=== PATIENT | female | born 1985 | race Caucasian/White ===

== ENCOUNTER 2024-10-04 13:11 | Emergency (ER) | payer MEDICAID, SELFPAY ==
[2024-10-04 13:49] VITALS: BP 110/70; PULSE 90; RESP 18; TEMP 36.2; O2SAT 98; BMI 29.2
--- NOTE | 2024-10-04 13:49 | ED_ITS ---
HPI - Allergic Reaction General Chief complaint: Skin/Abscess/Foreign Body Stated complaint: ? Allergic Rx to Prednisone Time Seen by Provider: 10/04/24 16:28 Source: patient Mode of arrival: ambulatory Limitations: no limitations History of Present Illness HPI narrative: This is a 39-year-old woman with a past medical history of anxiety/depression, history of IVDU (reports last use May 2024), history of MRSA, history of left upper extremity fracture status post surgery who presents for evaluation of nose redness/pain/edema. Patient states that she was recently prescribed prednisone, vitamins and increased dose of her gabapentin a little over a week ago. She reports taking as prescribed. She states that a few days ago she started having pain on her nose with some associated redness and swelling. She states noting some drainage of pus. She states no fevers or chills. She states no sore throat or voice changes. She states no chest pain or dyspnea. She states that she was prescribed these medications due to numbness and tingling in her left pinky finger and forearm. She states that several years ago she elbow had to have surgery for it. She states no interval trauma. She states no other complaints. She reports previously having a MRSA infection to her left brow. She states no back pain or abdominal pain. She states no GI or symptoms. She states no headache or neck pain. Related Data Previous Rx's ?Medication ?Instructions ?Recorded acetaminophen 325 mg tablet (Pain 650 mg (2 x 325 mg) PO Q8H PRN 10/04/24 Relief (acetaminophen)) pain #30 tabs amoxicillin 875 mg-potassium 1 tab PO BID 7 days #14 tabs 10/04/24 clavulanate 125 mg tablet doxycycline hyclate 100 mg capsule 100 mg PO BID 7 days #14 caps 10/04/24 ibuprofen 600 mg tablet 600 mg PO Q6H PRN pain #30 tabs 10/04/24 mupirocin 2 % topical ointment 1 appl topical TID 5 days #22 grams 10/04/24 Allergies Allergy/AdvReac Type Severity Reaction Status Date / Time No Known Allergies Allergy Verified 10/04/24 13:52 Review of Systems 2 Review of Systems: ROS as per HPI [facility] Social History Social History Advance Directives: No Advance Directives Information Provided: No Do you have a plan to hurt others: No Plan Patient : No Physical Exam ED Vital Signs: Vital Signs - 24 hr 10/04/24 13:49 Temperature 97.1 F Pulse Rate 90 Respiratory Rate 18 Blood Pressure 110/70 Pulse Oximetry 98 Oxygen Delivery Method Room Air BMI result Body Mass Index 29.2 Gen: NAD, AOx3 HEENT: NCAT, EOMI without pain, normal conjunctiva, erythema/warmth to the nose involving the bilateral nasal ala left greater than right with mild edema in associated spontaneous purulence from small fluctuance within the left naris, no periorbital erythema, uvula midline without edema, no posterior oropharynx erythema/exudates CV: RRR, 2+ bilateral radial pulses Pulm: CTAB, no increased work of breathing GI: Soft, NTND, no rebound, guarding or rigidity MSK: Bilateral upper extremity compartments are soft, intact motor function to the left upper extremity radial/ulnar/median/anterior interosseous nerves Neuro: CN 2-12 grossly intact, sensation intact to light touch in bilateral upper extremities, no motor deficits Skin: Warm, dry, well healed scar to left upper extremity Course Course Course Narrative: This is a Rapid Medical Exam performed in triage by Erin Barrera PA-C. Full HPI, ROS and PE to be performed by primary ED provider. 39-year-old female presenting to the ED c/o suspected allergic rxn to Prednisone w/erythematous & swollen nose. Placed on Prednisone for neuropathy s/p broken arm. Started on Prednisone 1.5wks ago. Admits has been on Prednisone in past w/o rxn. Denies other new exposures. Also reports paresthesias to left hand since broken arm. Denies snorting any drugs PE: +tip of nose swollen & erytheamtous with crusting/abrasion. Suspicious for cellulitis. Plan: Labs, SARs Medical Decision Making Medical Decision Making MDM Narrative: Differential diagnosis includes, but is not limited to cellulitis, abscess, peripheral neuropathy. Patient is afebrile and hemodynamically stable on room air. Exam is consistent with cellulitis and given patient's reported history of IVDU and previous MRSA we will treat empirically with Augmentin and doxycycline. Patient provided supportive care with Tylenol for analgesia. There is spontaneous purulent drainage so I do not think patient would benefit from incision and drainage especially given overlying cellulitis. On re-examination, patient is well-appearing and in no acute distress. ?Patient states symptoms have resolved. ?There is no indication for further emergent evaluation in this otherwise well-appearing patient as above. ?Patient is provided written and verbal instructions, educational materials, recommendations for outpatient follow-up, orthopedic surgery referral, prescription for Augmentin/doxycycline/mupirocin/Tylenol/ibuprofen. strict return precautions and teach back is performed. ?Patient states understanding and agreement with plan of care. ?Patient is discharged home in stable and improved condition. Admission/Observation Consideration of admission/observation: Escalation of care including admission/observation considered Lab Data MDM Lab Attestation statement: I reviewed the patient's lab results. Labs demonstrate a stable anemia with hemoglobin 11.3 no previous for comparison) metabolic panel overall reassuring, there is nonspecific transaminitis with AST 38 and ALT 34 which may be secondary to hepatic steatosis, not consistent with acute hepatitis and patient states no abdominal pain, CRP 6.9 in the setting of cellulitis. Viral panel negative. 10/04/24 14:01 10/04/24 14:01 Labs: Lab Results 10/04/24 Range/Units 14:01 WBC 9.3 (4.8-10.8) X10*3/uL RBC 3.76 L (4.20-5.50) X10*6/uL Hgb 11.3 L (12.0-16.0) g/dl Hct 35.7 L (37.0-47.0) % MCV 94.9 (80.0-98.0) fL MCH 30.1 (27.0-33.0) pg MCHC 31.7 (31.0-35.0) g/dl RDW 13.4 (11.0-16.0) % Plt Count 350 (160-400) X10*3/uL MPV 10.0 (9.4-12.3) fL Immature Gran % (Auto) 0.2 (0.0-0.4) % Neut % (Auto) 58.5 (45-73) % Lymph % (Auto) 31.7 (20-40) % [place] % (Auto) 5.9 (2-11) % Eos % (Auto) 3.3 (0-4) % Baso % (Auto) 0.4 (0-2) % Lymph # (Auto) 3.0 (1.2-4.9) X10*3/uL [place] # (Auto) 0.6 (0.1-1.2) X10*3/uL Eos # (Auto) 0.3 (0.0-0.4) X10*3/uL Baso # (Auto) 0.0 (0.0-0.2) X10*3/uL Abs Immat Gran (auto) 0.02 (0.00-0.03) X10*3/uL Absolute Neuts (auto) 5.5 (2.0-8.3) x10*3/uL Absolute Nucleated RBC 0.000 (0.0-0.012) X10*3/uL Nucleated RBC % (auto) 0.0 (0.0-0.2) /100WBC ESR 34 H (0-20) MM/HR Sodium 142 (135-145) mmol/L Potassium 4.4 (3.3-5.1) mmol/L Chloride 105 (96-108) mmol/L Carbon Dioxide 29 (22-29) mmol/L Anion Gap 12 (12-20) BUN 16 (9-16) mg/dL Creatinine 0.81 (0.5-1.4) mg/dL Estim Creat Clear Calc 89.4 Estimated GFR > 60 Random Glucose 71 (60-115) mg/dL Calcium 9.2 (8.4-10.2) mg/dL Total Bilirubin 0.3 (0.0-1.0) mg/dL Direct Bilirubin 0.1 (0.0-0.5) mg/dL AST 38 H (5-31) U/L ALT 34 H (0-31) U/L Alkaline Phosphatase 78 (39-117) U/L C-Reactive Protein 6.90 H (< or = 0.50) mg/dL Total Protein 7.5 (6.5-8.0) g/dL Albumin 4.1 (3.5-5.0) g/dL Influenza Type A (PCR) NEGATIVE (Negative) Influenza Type B (PCR) NEGATIVE (Negative) RSV RNA Qual (PCR) NEGATIVE (Negative) SARS-CoV-2 RNA (RT-PCR) NEGATIVE (Negative) Discharge Plan Discharge Clinical Impression: Cellulitis Patient Disposition: Home, Self-Care Instructions: Cellulitis (ED) Additional Instructions: You were evaluated in the emergency room. You were given your first dose of antibiotics here in the emergency room. A prescription for 2 antibiotics to be taken by mouth has been sent to your pharmacy. Please take as directed and until completed. Your next dose of antibiotics should be taken tomorrow morning October 05, 2024. A prescription for a topical antibiotic ointment (Mupirocin) has been sent to your pharmacy as well. Please apply to your nose and inside both nostrils 3 times per day for the next 5 days. A prescription for Tylenol and Ibuprofen has also been sent. Take as directed. Take ibuprofen with food AND water each time. Please follow up with Orthopedic surgery in 1-2 weeks for your previous left elbow injury. Return to the emergency room with any new concerns or symptoms. Prescriptions: New doxycycline hyclate 100 mg capsule 100 mg PO BID 7 Days Qty: 14 0RF amoxicillin-pot clavulanate 875-125 mg tablet 1 tab PO BID 7 Days Qty: 14 0RF ibuprofen 600 mg tablet 600 mg PO Q6H PRN (Reason: pain) Qty: 30 0RF acetaminophen [Pain Relief (acetaminophen)] 325 mg tablet 650 mg PO Q8H PRN (Reason: pain) Qty: 30 0RF mupirocin 2 % ointment 1 appl topical TID 5 Days Qty: 22 0RF Referrals: [facility] [Provider Group] Print Language: Arabic
[2024-10-04 14:10] LABS: MANUAL DIFF FLAG NO
[2024-10-04 14:15] LABS: Basophils Percent Auto 0.4 % (0-2); Eosinophils Absolute Auto 0.3 X10*3/uL (0.0-0.4); Eosinophils Percent Auto 3.3 % (0-4); Hematocrit 35.7 % (37.0-47.0); Hemoglobin 11.3 g/dl (12.0-16.0); Imm Gran Abs Auto 0.02 X10*3/uL (0.00-0.03); Imm Gran Pct Auto 0.2 % (0.0-0.4); Lymphocytes Percent Auto 31.7 % (20-40); Mean Corpuscular HGB Conc 31.7 g/dl (31.0-35.0); Mean Corpuscular Hemoglobin 30.1 pg (27.0-33.0); Mean Corpuscular Volume 94.9 fL (80.0-98.0); Monocytes Absolute Auto 0.6 X10*3/uL (0.1-1.2); Monocytes Percent Auto 5.9 % (2-11); Neutrophils Absolute Auto 5.5 x10*3/uL (2.0-8.3); Neutrophils Percent Auto 58.5 % (45-73); Platelet Count 350 X10*3/uL (160-400); Red Blood Count 3.76 X10*6/uL (4.20-5.50); Red Cell Distribution Width 13.4 % (11.0-16.0); White Blood Count 9.3 X10*3/uL (4.8-10.8)
[2024-10-04 14:29] LABS: Alanine Aminotransferase 34 U/L (0-31); Albumin Level 4.1 g/dL (3.5-5.0); Alkaline Phosphatase 78 U/L (39-117); Anion Gap 12 (12-20); Aspartate Amino Transferase 38 U/L (5-31); Bilirubin Direct 0.1 mg/dL (0.0-0.5); Bilirubin Total 0.3 mg/dL (0.0-1.0); Blood Urea Nitrogen 16 mg/dL (9-16); Calcium 9.2 mg/dL (8.4-10.2); Carbon Dioxide 29 mmol/L (22-29); Chloride 105 mmol/L (96-108); Creatinine Clr Calc Pharmacy 89.4; Estimated Glomerular Filt Rate > 60; Glucose Random 71 mg/dL (60-115); Potassium 4.4 mmol/L (3.3-5.1); Sodium 142 mmol/L (135-145); Total Protein 7.5 g/dL (6.5-8.0)
[2024-10-04 14:48] LABS: Influenza A PCR NEGATIVE (Negative); Influenza B PCR NEGATIVE (Negative); Resp Syncy Virus RNA Qual PCR NEGATIVE (Negative); SARS COV2 PCR INHOUSE NEGATIVE (Negative)
[2024-10-04 14:54] LABS: Erythrocyte Sedimentation Rate 34 MM/HR (0-20)
--- OUTSIDE RECORDS SUMMARY | 2024-10-04 16:38 | XMS_ITS | Encounter Summary ---
Author Organization [facility] Address [address] [place] [address] Care Team Providers Care Stock Taker Name Role Phone Rachel Kirby NP Primary Care Provider [facility] Unavailable U navailable [facility] Unavailabl e Unavailable Encounter Details Date Type Department Care Team (Late st Contact Info) Description 06/12/2023 Orders Only [facility] [address] [place] [address] Rachel Kirby NP [address] [place] [address] Social History Tobacco Use Types Packs/Day Years Used Date Smoking Tobacco: Every Day Cigarettes 1 24.3 Started: 06/04/2000 Smokeless Tobacco: Current Comments:Started at age 16. Quit for 6 months. Alcohol Use Standard Drinks/Week Comments No 0 (1 standard drink = 0.6 oz pur e alcohol) Sober since 2018 PHQ-2 Answer Date Recorded PHQ-2 Score 0 06/04/2019 Intimate Partner Violence Answer Date R ecorded Fear of Current or Ex-Partner Not on file Emotionally Abused Not on file 02/13/2023 Physically Abused Not on file 02/13/2023 Sexually Abused Not on file 02/13/2023 Feel Safe at Home Not on file 02/13/2023 Social Connections Answer Date Recorded Phone Communication More than three times a week 02/04/2022 Get together with friends / family Once a week 02/04/2022 Attend latter-day services Never 2021 Club Membership No 02/04/2022 Club Attendance More than 4 times per year 02/04 Marital Status Never 02/04/2022 Financial Resource Strain Answer Date R ecorded Difficulty paying for basics How hard is it for you to pa y for utilities (electricity, gas, water)? Hard 02/04/2022 Food Insecurity Answer Date Recorded Worry that food will run out Inability to get food 10/05/2022 Transportation Needs Answer Date Record ed Lacking transport to medical appts 10/05/2022 Lacking transport to non-medical 10/05/2022 Housing Stability Answer Date Recorded Unable to Pay for Housing in the Last Year 10/05/2022 Number of Places Lived in the Last Year 2 10/05/2022 Unstable Housing in the Last Year 10/05/2022 Comments No Sex and Gender Information Value Date Recorded Sex Assigned at Female 12/23/2022 2:36 PM EDT Legal Sex Female 8:58 PM EDT Gender Identity Female 12/23/2022 2:36 PM EDT Sexual Orientation Straight 12/23/2022 2: 36 PM EDT documented as of this encounter Plan of Treatment Upcoming Encounters Date Type Department Care Team (Latest Contact Info) Description 11/04/2024 1:20 PM EDT Consult (Initial) [facility] Plastic & Reconstructive Surgery [address] [address] Geoffrey Fairchild MD [address] [address] I have what I believe I 11/08/2024 2:05 PM EDT CPE - Comprehensive Physical Exam [facility] [address] [place] [phone] Rachel Kirby NP [address] [place] [address] SP MCKEON 03/14/2025 3:00 PM EDT Office Visit [facility] Optometry [address] [place] [address] Juanjose Allen, OD [address] [place] [address] est pt exam annual nodm nocl aodv aoir. elig 03/14/2025, 06/14mos EM $0 cp documented as of this encounter Goals Goal Patient Goal Type Associated Problems Recent Progress Patient-Stated? Author Quit smoking / using tobacco Lifestyle Tiera Guthrie CMA Note: Smoking can cause cancer, heart attacks, hardening of the arteries, bronchitis, emphysema, cough, shortness of breath, wrinkles, and premature aging and premature births. Some benefits of quitting smoking begin right away. Your risk of heart disease begins to decrease as soon as you quit. Your general health may also start to improve immediately because you are not irritating your lungs and more oxygen gets to your body organs. Your blood circulation is likely to get better. Other benefits may include fewer colds and lung infections as well as reduced risk of high blood pressure, stroke, and cancer. Interested in quitting smoking? Discuss medication options with your provider or contact the Quit To Win program at . Any insurance accepted. Quit smoking resources-[email or web address]://[email or web address] documented as of this encounter Procedures * Due to [place] law, this organization might not be sharing negative HIV tests. Procedure Name Priority Date/Time Associated Diagnosis Comments THINPREP TIS PAP, HPV MRNA E6/E7 RFX HPV 16,18/45, CT/NG Routine 06/12/2023 8:48 AM EST Screening for malignant neoplasm of cervix documented in this encounter Results * Due to [place] law, this organization might not be sharing negative HIV tests. * THINPREP TIS PAP, HPV MRNA E6/E7 RFX HPV 16,18/45, CT/NG (06/12/2023 8:48 AM EST) Clinical information None given [facility] Date last menstrual period 05/08/2023 [facility] Date of previous PAP smear 05/14/2008 [facility] Date of previous biopsy NONE GIVEN [facility] Specimen source (Cvx/Vag) None given [facility] Statement of Adequacy (Cvx/Vag) Satisfactory for evaluation. Endocervical/segal sformation zone component present. [facility] Cytology, Pap Smear Cytology Results: Negative for intraepithelial lesion or malignancy. [facility] Cytology study comment (Cvx/Vag) This Pap test has been evaluated with computer assisted technology. [facility] Operations Consultant (Cvx/Vag) EXJ, CT(ASCP) CT Screening Location: [place] [address] [facility] COMMENT SEE NOTE [facility] Comment: EXPLANATORY NOTE: The Pap is a screening test for cervical cancer. It is not a diagnostic test and is subject to false negative and false positive results. It is most reliable when a satisfactory sample, regularly obtained, is submitted with relevant clinical findings and history, and when the Pap result is evaluated along with historic and current clinical information. HPV MRNA E6/E7 Not Detected Not Detected [facility] Comment: Methodology: Axminster Weaver-Mediated Amplification This assay detects E6/E7 viral messenger RNA (mRNA) from 14 high-risk HPV types (16,18,31,33,35,39,45,51,52,56,58,59,66,68). Cervical sources are required for HPV testing. If a vaginal source from a patient who has had a total hysterectomy with removal of cervix was submitted, please contact the testing laboratory for alternative testing options. For additional information, please refer to http://[employer]/faq/WFH114f2 (This link if provided for information/ educational purposes only.) Chlamydia trachomatis rRNA NOT DETECTED NOT DETECTED [facility] Neisseria Gonorrhoeae rRNA NOT DETECTED NOT DETECTED [facility] COMMENT SEE NOTE [facility] Comment: The analytical performance characteristics of this assay, when used to test SurePath(TM) specimens have been determined by [facility]. The modifications have not been cleared or approved by the FDA. This assay has been validated pursuant to the CLIA regulations and is used for clinical purposes. For additional information, please refer to https://[employer]/faq/MXG584 (This link is being provided for information/ educational purposes only.) 06/12/2023 8:48 AM EST 06/12/2023 11:28 PM EST Narrative Resulting Agency Comment [id number] us Rachel Kirby NP PATHOLOGY-INTERFACED Final R esult Performing Organization Address City/State/[facility] Co de Phone Number [facility] [address] [place] [address] documented in this encounter Visit Diagnoses Diagnosis Screening for malignant neoplasm of cervix Screening for malignant neoplasm of the cervix documented in this encounter Care Teams Stock Taker Relationship Specialty Start Date End Date Rachel Kirby NP PCP - General Internal Medicine [facility] 02/19/23 08/20/23 [facility] 11/20/23 06/21/24 documented as of this encounter
--- OUTSIDE RECORDS SUMMARY | 2024-10-04 16:38 | XMS_ITS | Encounter Summary ---
Author Organization [facility] Address [address] [place] [address] Care Team Providers Care Veterinary Dentist Name Role Phone Rachel Kirby NP Primary Care Provider [facility] U navailable [facility] Unavailabl e Unavailable Reason for Visit * Reason Comments Medication Problem Encounter Details Date Type Department Care Team ([facility] st Contact Info) Description 12/30/2021 Telephone [facility] [address] [place] [phone] Rachel Kirby NP [address] [place] [address] Medication Problem Social History Tobacco Use Types Packs/Day Years Used Date Smoking Tobacco: Every Day Cigarettes 1 24.3 Started: 06/04/2000 Smokeless Tobacco: Current Comments:Started at age 16. Alcohol Use Standard Drinks/Week Comments No 0 (1 standard drink = 0.6 oz pur e alcohol) Sober since 2019 PHQ-2 Answer Date Recorded PHQ-2 Score 0 06/04/2019 Comments No Sex and Gender Information Value Date Recorded Sex Assigned at Female 12/23/2022 2:36 PM EDT Legal Sex Female 8:58 PM EDT Gender Identity Female 12/23/2022 2:36 PM EDT Sexual Orientation Straight 12/23/2022 2: 36 PM EDT Occupation Industry Job Start Date Job End Date Not on file Not on file Not on file Not on file [employer] Not on file Not on file Not on file documented as of this encounter Miscellaneous Notes * Telephone Encounter - Leidy Garnicaa - 12/30/2021 11:58 AM EDT Pt in program. Calling re: med problem Transferred to nurse documented in this encounter Plan of Treatment Upcoming Encounters Date Type Department Care Team (Latest Contact Info) Description 11/04/2024 1:20 PM EDT Consult (Initial) [facility] Plastic & Reconstructive Surgery 123 [facility] [address] [place] [address] Geoffrey Fairchild MD [address] [address] I have what I believe I 11/08/2024 2:05 PM EDT CPE - Comprehensive Physical Exam [facility] [address] [place] [phone] Rachel Kirby NP [address] [place] [address] CPE, HCC 03/14/2025 3:00 PM EDT Office Visit [facility]. Optometry [address] [place] [phone] Juanjose Allen, JERONIMO [address] [place] [address] est pt exam annual nodm nocl aodv aoir. elig 03/14/2025, 06/14mos EM $0 cp documented as of this encounter Goals Goal Patient Goal Type Associated Problems Recent Progress Patient-Stated? Author Quit smoking / using tobacco Lifestyle No Tiera Jones CMA Note: Smoking can cause cancer, heart [...] at . Any insurance accepted. Quit smoking resources-http://[employer].org documented as of this encounter Visit Diagnoses Not on filedocumented in this encounter Care Teams Veterinary Dentist Relationship Specialty Start Date End Date Rachel Kirby NP PCP - General Internal Medicine 04/19/18 [facility] 02/19/23 08/20/23 [facility] 11/20/23 06/21/24 documented as of this encounter
--- OUTSIDE RECORDS SUMMARY | 2024-10-04 16:38 | XMS_ITS | Encounter Summary ---
Author Organization [facility] Address [address] [place] [address] Care Team Providers Care Dominatrix Name Role Phone Rachel Kirby NP Primary Care Provider [phone] [facility] U navailable [facility] Unavailabl e Unavailable Reason for Visit * Reason Comments E-prescribing Refill Request Encounter Details Date Type Department Care Team ([facility] st Contact Info) Description 03/06/2021 Refill [facility] [address] [place] [phone] Rachel Kirby NP [address] [place] [address] E-prescribing Refill Request Social History Tobacco Use Types Packs/Day Years [...] file Not on file Not on file Beater Out Not on file Not on file Not on file documented as of this encounter Plan of Treatment Upcoming Encounters Date Type Department Care Team (Latest Contact Info) Description 11/04/2024 1:20 PM EDT Consult (Initial) [facility] Plastic & Reconstructive Surgery 123 [facility] [address] [place] [address] Geoffrey Fairchild MD 123 [facility] [address] [place] [address] I have what I believe I 11/08/2024 2:05 PM EDT CPE - Comprehensive Physical Exam [facility] [address] [place] [phone] Rachel Kirby NP [address] [place] [address] CPE, HCC 03/14/2025 3:00 PM EDT Office Visit [facility]. Optometry [address] [place] [phone] Juanjose Allen, JERONIMO [address] [place] [address] est pt exam annual nodm nocl aodv aoir. elig 03/14/2025, 06/14mos EM $0 cp documented as of this encounter Goals Goal Patient Goal Type Associated Problems Recent Progress Patient-Stated? Author Quit smoking / using tobacco Lifestyle No Tiera Jones, JOHN Note: Smoking can cause cancer, heart attacks, [...] at . Any insurance accepted. Quit smoking resources-[email or web address] documented as of this encounter Visit Diagnoses Diagnosis Other specified anxiety disorders documented in this encounter Care Teams Dominatrix Relationship Specialty Start Date End Date Rachel Kirby NP PCP - General Internal Medicine 04/19/18 Micah Chiang [facility] 02/19/23 08/20/23 [facility] 11/20/23 06/21/24 documented as of this encounter
--- OUTSIDE RECORDS SUMMARY | 2024-10-04 16:38 | XMS_ITS | Encounter Summary ---
Author Organization [facility] Address [address] [place] [address] Care Team Providers Care Automotive Design Layout Drafter Name Role Phone Rachel Kirby NP Primary Care Provider [phone] [facility] U navailable [facility], [facility] Unavailabl e Unavailable Reason for Visit * Reason Comments E-prescribing Refill Request Encounter Details Date Type Department Care Team ([facility] st Contact Info) Description 06/17/2022 Refill [facility] [address] [place] [address] Rachel Kirby NP 4 [place] [address] E-prescribing Refill Request Social History Tobacco Use [...] on file Emotionally Abused Not on file 02/04/2022 Physically Abused Not on file 02/04/2022 Sexually Abused Not on file 02/04/2022 Do you feel physically and e motionally safe where you currently live? Yes 02/04/2022 Social Connections Answer Date Recorded Phone Communication [...] for utilities (electricity, gas, water)? 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 Not on file Not on file documented as of this encounter Plan of Treatment Upcoming Encounters Date Type Department Care Team (Latest Contact Info) Description 11/04/2024 1:20 PM EDT Consult (Initial) [facility] Plastic & Reconstructive Surgery [address] [address] Geoffrey Fairchild MD [address] [address] I have what I believe I 11/08/2024 2:05 PM EDT CPE - Comprehensive Physical Exam [facility] [address] [place] [phone] Rachel Kirby NP 4 [place] [address] CPE, HCC 03/14/2025 3:00 PM EDT Office Visit [facility]. Optometry 5 [place] [address] AllenJavyis, OD 5 [place] [address] est pt exam annual nodm nocl aodv [...] at . Any insurance accepted. Quit smoking resources-[email or web address] [email or web address] documented as of this encounter Visit Diagnoses Not on filedocumented in this encounter Care Teams Automotive Design Layout Drafter Relationship Specialty Start Date End Date Rachel Kirby NP PCP - General Internal Medicine 04/19/18 [facility] 02/19/23 08/20/23 [facility] 11/20/23 06/21/24 documented as of this encounter
--- OUTSIDE RECORDS SUMMARY | 2024-10-04 16:38 | XMS_ITS | Encounter Summary ---
Author Organization [facility] Address [address] [place] [address] Care Team Providers Care Hospice Spiritual Care Coordinator Name Role Phone Rachel Kirby NP Primary Care Provider Sharif Serrano MD Unavailable [phone] Berta Mcintosh MD Primary Care Provider [phone] Yasmani Cook MD Primary Care Provider Unknown Pcp, Non [facility] Primary Care Provider Unava ilable Yasmani Cook MD Primary Care Provider [phone] Yasmani Cook MD Primary Care Provider [phone] Rachel Kirby NP Primary Care Provider [phone] [facility] Unavai [facility] Unavailable U navailable [facility] Unavailabl e Unavailable Encounter Details Date Type Department Care Team (Late st Contact Info) Description 03/17/2009 Orders Only [place] [address] Stefanie Stone MD Social History Tobacco Use Types Packs/Day Years Used Date Smoking Tobacco: Passive Smo ke Exposure - Never Smoker Cigarettes Comments:about 5 cigarettes a day Alcohol Use Standard Drinks/Week Comments Yes 0 (1 standard drink = 0.6 oz pur e alcohol) Once in awhile. 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 Telephone encounter has been sent to dr. Stone as patient is having a problem with spotting and cramping. documented in this encounter Plan of Treatment Upcoming Encounters Date Type Department Care Team (Latest Contact Info) Description 11/04/2024 1:20 PM EDT Consult (Initial) [facility] Plastic & Reconstructive Surgery [address] [address] Geoffrey Fairchild MD [address] [address] I have what I believe I 11/08/2024 2:05 PM EDT CPE - Comprehensive Physical Exam [facility] 4 [place] [phone] Rachel Kirby NP 4 [place] [address] CPE, HCC 03/14/2025 3:00 PM EDT Office Visit [facility]. Optometry 5 [place] [phone] Juanjose Allen, OD 5 [place] [address] est pt exam annual nodm nocl aodv aoir. elig 03/14/2025, 06/14mos EM $0 cp documented as of this encounter Procedures * Due to [place] AdStage law, this organization might not be sharing negative HIV tests. Procedure Name Priority Date/Time Associated Diagnosis Comments HCG (QUANTITATIVE) (CAN BE USED FOR TUMOR MARKER) Routine 03/17/2009 Examination or Test, Unconfirmed documented in this encounter Results * Due to [place] AdStage law, this organization might not be sharing negative HIV tests. * HCG (QUANTITATIVE) (CAN BE USED FOR TUMOR MARKER) (03/17/2009) HCG, Total, Quantitative < 5 5 MIU/ML [facility] Comment: GESTATIONAL WEEKS POST LMP 0.2-1: 5-50 MIU/ML 1-2: 50-500 MIU/ML 2-3: 100-5,000 MIU/ML 3-4: 500-10,000 MIU/ML 4-5: 1,000-50,000 MIU/ML 5-6: 10,000-100,000 MIU/ML 6-8: 15,000-200,000 MIU/ML 2-3 MONTHS: 10,000-100,000 MIU/ML NON- FEMALES: < 5 MIU/ML POST-MENOPAUSAL FEMALES: ??< 10 MIU/ML VALUES FROM DIFFERENT ASSAY METHODS MAY VARY. THE USE OF THIS ASSAY TO MONITOR OR TO DIAGNOSE PATIENTS WITH CANCER OR ANY CONDITION UNRELATED TO HAS NOT BEEN CLEARED OR APPROVED BY THE FDA OR THE MINING PROFESSIONALS OF THIS ASSAY. 03/17/2009 03/17/2009 7:1 7 PM EDT us Stefanie Stone MD LAB SAME DAY RESULT Final Result [facility] [address] [place] [address] documented in this encounter Visit Diagnoses Diagnosis examination or test, unconfirmed documented in this encounter Care Teams Hospice Spiritual Care Coordinator Relationship Specialty Start Date End Date Rachel Kirby NP [address] [place] [address] PCP - General 05/22/10 04/17/11 Sharif Serrano MD 4 [place] [address] PCP - Backup PCP 06/20/08 04/17/11 Berta Mcintosh MD [facility] Care [address] [place] [address] PCP - General 04/18/11 12/30/12 Yasmani Cook MD [address] [place] [address] PCP - General Internal Medicine 12/31/12 12/29/14 Unknown Pcp, Non [facility] PCP - General 12/30/14 09/03/15 Yasmani Coko MD [address] [place] [address] PCP - General Internal Medicine 09/04/15 02/28/18 Yasmani Cook MD [address] [place] [address] PCP - General 03/01/18 04/18/18 Rachel Kirby NP PCP - General Internal Medicine 04/19/18 [facility] 07/21/1908/19 [facility] 02/19/23 08/20/23 [facility] 11/20/23 06/21/24 documented as of this encounter
--- OUTSIDE RECORDS SUMMARY | 2024-10-04 16:38 | XMS_ITS | Encounter Summary ---
Author Organization [facility] Address [address] [place] [address] Care Team Providers Care Timber Cruiser Name Role Phone Rachel Kirby NP Primary Care Provider Sharif Serrano MD Unavailable [phone] Berta Mcintosh MD Primary Care Provider [phone] Yasmani Cook MD Primary Care Provider Unknown Pcp, Non [facility] Primary Care Provider Unava ilable Yasmani Cook MD Primary Care Provider [phone] Yasmani Cook MD Primary Care Provider Rachel Kirby NP Primary Care Provider [phone] [facility] Un[facility] Unavai [facility], [facility] Unavailable U navailable [facility] Unavailabl e Unavailable Encounter Details Date Type Department Care Team (Late st Contact Info) Description 03/16/2009 Orders Only [place] [address] Stefanie Stone MD Social History Tobacco Use [...] 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 [address] [place] [address] I have what I believe I 11/08/2024 2:05 PM EDT CPE - Comprehensive Physical Exam [facility] 4 [place] [address] Rachel Kirby NP 4 [place] [address] CPE, HCC 03/14/2025 3:00 PM EDT Office Visit [facility] Optometry 5 [place] [phone] Juanjose Allen, JERONIMO [address] [place] [address] est pt exam annual nodm nocl aodv aoir. elig 03/14/2025, 06/14mos EM $0 cp documented as of this encounter Results * Due to [place] state law, this organization might not be sharing negative HIV tests. * HCG (QUANTITATIVE) (CAN BE USED FOR TUMOR MARKER) (03/17/2009) HCG, Total, Quantitative < 5 5 MIU/ML [facility] Comment: GESTATIONAL WEEKS POST LMP 0.2-1: [...] OR APPROVED BY THE FDA OR THE SILVER DESIGNER OF THIS ASSAY. 03/17/2009 03/17/2009 7:1 7 PM EDT Stefanie Stone MD LAB SAME DAY RESULT Final Result [facility] [address] [place] [address] documented in this encounter Visit Diagnoses Diagnosis examination or test, unconfirmed- Primary documented in this encounter Care Teams Timber Cruiser Relationship Specialty Start Date End Date Rachel Kirby NP [address] [place] [address] PCP - General 05/22/10 04/17/11 Sharif Serrano MD [address] [place] [address] PCP - Backup PCP 06/20/08 04/17/11 Berta Mcintosh MD [facility] [address] [place] [address] PCP - General 04/18/11 12/30/12 Yasmani Cook MD [address] [place] [address] PCP - General Internal Medicine 12/31/12 12/29/14 Unknown Pcp, Non [facility] PCP - General 12/30/14 09/03/15 Yasmani Cook MD [address] [place] [address] PCP - General Internal Medicine 09/04/15 02/28/18 Yasmani Cook MD [address] [place] [address] PCP - General 03/01/18 04/18/18 Rachel Kirby NP PCP - General Internal Medicine 04/19/18 [facility] Health Assistants 07/21/1908/19 [facility] 02/19/23 08/20/23 [facility] Assist[facility] 11/20/23 06/21/24 documented as of this encounter
--- OUTSIDE RECORDS SUMMARY | 2024-10-04 16:38 | XMS_ITS | Encounter Summary ---
Author Organization [facility] Address [address] [place] [address] Care Team Providers Care Business Area Director Name Role Phone Rachel Kirby NP Primary Care Provider [phone] Care, [facility] Unavailable [facility], [facility] Unavailable U navailable [facility] Unavailabl e Unavailable Encounter Details Date Type Department Care Team (Late st Contact Info) Description 05/30/2019 Telephone [facility] 4 [place] [phone] Rachel Kirby NP [address] [place] [address] Social History Tobacco Use Types Packs/Day Years Used Date Smoking Tobacco: Every Day Cigarettes 0.8 17 Smokeless Tobacco: Current Comments:Started at age 16. 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 Not on file documented as of this encounter Plan of Treatment Upcoming Encounters Date Type Department Care Team (Latest Contact Info) Description 11/04/2024 1:20 PM EDT Consult (Initial) [facility] Plastic & Reconstructive Surgery 123 [facility] [address] [place] [address] Geoffrey Fairchild MD 123 [facility] [address] [place] [address] I have what I believe I 11/08/2024 2:05 PM EDT CPE - Comprehensive Physical Exam [facility] [address] [place] [phone] Rachel Kirby NP [address] [place] [address] CPE, HCC 03/14/2025 3:00 PM EDT Office Visit [facility]. Optometry 5 [place] [phone] Juanjose Allen, OD 5 [place] [address] est pt exam annual nodm nocl aodv [...] at . Any insurance accepted. Quit smoking resources-[email or web address]://[email or web address].[email or web address] documented as of this encounter Visit Diagnoses Not on filedocumented in this encounter Care Teams Business Area Director Relationship Specialty Start Date End Date Rachel Kirby NP PCP - General Internal Medicine 04/19/18 [facility] Health Assistants 07/21/1908/19 [facility] 02/19/23 08/20/23 [facility] Assist[facility] 11/20/23 06/21/24 documented as of this encounter
--- OUTSIDE RECORDS SUMMARY | 2024-10-04 16:38 | XMS_ITS | Encounter Summary ---
Author Organization [facility] Address [address] [place] [address] Care Team Providers Care Steel Wool Machine Operator Name Role Phone Rachel Kirby NP Primary Care Provider [phone] Sharif Serrano MD Unavailable [phone] Berta Mcintosh MD Primary Care Provider Yasmani Cook MD Primary Care Provider [phone] Unknown Pcp, Non [facility] Primary Care Provider Unava ilable Yasmani oCok MD Primary Care Provider Yasmani Cook MD Primary Care Provider Rachel Kirby NP Primary Care Provider [phone] Care, [facility] Unavailable Unavai [facility], [facility] Unavailable U navailable [facility] Unavailabl e Unavailable Encounter Details Date Type Department Care Team (Late st Contact Info) Description 10/28/2008 Orders Only [facility] [address] [place] [address] Rachel Kirby NP 4 [place] [address] Social History Tobacco Use Types Packs/Day Years Used Date Smoking Tobacco: Every Day Cigarettes Comments:about 5 cigarettes a day Alcohol [...] 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 Optometry 5 [place] [phone] Juanjose Allen, JERONIMO [address] [place] [address] est pt exam annual nodm nocl aodv aoir. elig 03/14/2025, 06/14mos EM $0 cp documented as of this encounter Procedures * Due to [place] state law, this organization might not be sharing negative HIV tests. Procedure Name Priority Date/Time Associated Diagnosis Comments CULTURE, STREP SCREEN (GROUP A), THROAT Routine 10/28/2008 Pharyngitis documented in this encounter Results * Due to [place] state law, this organization might not be sharing negative HIV tests. * CULTURE, STREP SCREEN (GROUP A), THROAT (10/28/2008) Result(s) SEE TEXT [facility] Comment: SOURCE: THROAT NO GROUP A STREPTOCOCCI ISOLATED 10/28/2008 10/28/2008 10: 13 PM EDT Rachel Kirby NP LABORATORY Final Result Performing Organization Address City/State/[facility] Co de Phone Number [facility] [address] [place] [address] documented in this encounter Visit Diagnoses Diagnosis Pharyngitis Acute pharyngitis documented in this encounter Care Teams Steel Wool Machine Operator Relationship Specialty Start Date End Date Rachel Kirby NP [address] [place] [address] PCP - General 05/22/10 04/17/11 Sharif Serrano MD [address] [place] [address] PCP - Backup PCP 06/20/08 04/17/11 Berta Mcintosh MD [facility] [address] [place] [id number] PCP - General 04/18/11 12/30/12 Yasmani Cook MD [address] [place] [address] PCP - General Internal Medicine 12/31/12 12/29/14 Unknown Pcp, Non [facility] PCP - General 12/30/14 09/03/15 Yasmani Cook MD [address] [place] [address] PCP - General Internal Medicine 09/04/15 02/28/18 [place] [address] PCP - General 03/01/18 04/18/18 Rachel Kirby NP PCP - General Internal Medicine 04/19/18 [facility]ants 07/21/1908/19 [facility] 02/19/23 08/20/23 [facility] Assistants 11/20/23 06/21/24 documented as of this encounter
--- OUTSIDE RECORDS SUMMARY | 2024-10-04 16:38 | XMS_ITS | Encounter Summary ---
Author Organization [facility] Address [address] [place] [address] Care Team Providers Care Hull Grinder Name Role Phone Rachel Kirby NP Primary Care Provider [phone] Care, [facility] Unavailable Unavai [facility], 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 Not on file documented as of this encounter Plan of Treatment Upcoming Encounters Date Type Department Care Team (Latest Contact Info) Description 11/04/2024 1:20 PM EDT Consult (Initial) [facility] Plastic & Reconstructive Surgery 123 [facility] [address] [place] [address] Geoffrey Fairchild MD 123 [facility] [address] [place] [address] I have what I believe I 11/08/2024 2:05 PM EDT CPE - Comprehensive Physical Exam [facility] 4 [place] [phone] Rachel Kirby NP 4 [place] [address] CPE, HCC 03/14/2025 3:00 PM EDT Office Visit [facility]. Optometry 5 [place] [phone] Juanjose Allen, OD 5 [place] [address] est pt exam annual nodm nocl aodv [...] at . Any insurance accepted. Quit smoking resources-[email or web address] documented as of this encounter Procedures * Due to [place] Bizily law, this organization might not be sharing negative HIV tests. Procedure Name Priority Date/Time Associated Diagnosis Comments THYROID STIMULATING HORMONE (TSH) WITH FREE T4 REFLEX, SERUM Routine 05/04/2018 3:04 PM EST Screening for thyroid disorder HEMOGLOBIN A1C Routine 05/04/2018 3:04 PM EST Screening for diabetes mellitus LAMOTRIGINE Routine 05/04/2018 3:04 PM EST Bipolar disorder, current episode mixed, mild LIPID PANEL WITH REFLEX TO DIRECT LDL Routine 05/04/2018 3:04 PM EST Screening for lipid disorders BASIC METABOLIC PANEL WITH (GFR) Routine 05/04/2018 3:04 PM EST Screening for diabetes mellitus documented in this encounter Results * Due to [place] Biz[place] law, this organization might not be sharing negative HIV tests. * (ABNORMAL) LAMOTRIGINE (05/04/2018 3:04 PM EST) Lamotrigine 1.9(L) 4.0 - 18.0 mcg/mL [facility] Comment: This test was developed and its analytical performance characteristics have been determined by [facility], [place]. It has not been cleared or approved by the U.S. Food and Drug Administration. This assay has been validated pursuant to the CLIA regulations and is used for clinical purposes. 05/04/2018 3:04 PM EST 05/04/2018 9:47 PM EST Narrative Resulting Agency Comment [id number] Rachel Kirby NP LABORATORY Final Result [facility] [address] [place] [address] * THYROID STIMULATING HORMONE (TSH) WITH FREE T4 REFLEX, SERUM (05/04/2018 3:04 PM EST) Pathologist [facility] TSH 2.06 mIU/L [facility] Comment: ?Reference Range ?> or = 20 Years ??0.40-4.50 ? Ranges ?First trimester ?0.26-2.66 ?Second trimester ?? 0.55-2.73 ?Third trimester ?0.43-2.91 05/04/2018 3:04 PM EST 05/04/2018 9:47 PM EST Narrative Resulting Agency Comment [id number] [facility] LABORATORY Final Result Performing Organization Address [facility] Phone Number [facility] [address] [place] [address] * HEMOGLOBIN A1C (05/04/2018 3:04 PM EST) [facility] Hemoglobin A1C 5.0 <5.7 % of total Hgb [facility] Comment: For the purpose of screening for the presence of diabetes: <5.7% ? Consistent with the absence of diabetes 5.7-6.4% ?Consistent with increased risk for diabetes ?(prediabetes) > or =6.5% ??Consistent with diabetes This assay result is consistent with a decreased risk of diabetes. Currently, no consensus exists regarding use of hemoglobin A1c for diagnosis of diabetes in children. According to [place] Diabetes Association (ADA) guidelines, hemoglobin A1c <7.0% represents optimal control in non- diabetic patients. Different metrics may apply to specific patient populations. Standards of Medical Care in Diabetes(ADA). Estimated Average Glucose 101 mg/dL (calc) [facility] 05/04/2018 3:04 PM EST 05/04/2018 9:47 PM EST Narrative Resulting Agency Comment [id number] [facility] LABORATORY Final Result Performing Organization Address [facility]/ZIP Co de Phone Number [facility] [address] [place] [address] * (ABNORMAL) BASIC METABOLIC PANEL WITH (GFR) (05/04/2018 3:04 PM EST) Glucose 102(H) 65 - 99 mg/dL [facility] Comment: ? Fasting reference interval For someone without known diabetes, a glucose value between 100 and 125 mg/dL is consistent with prediabetes and should be confirmed with a follow-up test. Urea Nitrogen Blood (BUN) 24 7 - 25 mg/dL [facility] Creatinine 0.69 0.50 - 1.10 mg/dL [facility] GFR 114 > OR = 60 mL/min/1. 73m2 [facility] GFR () 132 > OR = 60 mL/min/1. 73m2 [facility] BUN/Creatinine Ratio NOT APPLICABLE 6 - 22 (calc) [facility] Sodium 145 135 - 146 mmol/L [facility] Potassium 4.1 3.5 - 5.3 mmol/L [facility] Chloride 110 98 - 110 mmol/L [facility] Carbon dioxide 21 20 - 32 mmol/L [facility] Calcium 9.4 8.6 - 10.2 mg/dL [facility] 05/04/2018 3:04 PM EST 05/04/2018 9:47 PM EST Narrative [facility] - 05/05/2018 6:49 AM EST Please note that this estimated GFR does not include an adjustment for the patient's height or weight, and can therefore, be viewed as reliable only for patients with heights between 60 and 72 . More precise quantification using a 24-hour urine sample or height-based algorithm is recommended for patients outside of this range of height and for those individuals with more precise needs for GFR calculation. Resulting Agency Comment [id number] Rachel Kirby NP LABORATORY Final Result Performing Organization Address City/[facility]/ZIP Co de Phone Number [facility] [address] [place] [address] * (ABNORMAL) LIPID PANEL WITH REFLEX TO DIRECT LDL (05/04/2018 3:04 PM EST) Cholesterol 134 <200 mg/dL [facility] HDL Cholesterol 41(L) >50 mg/dL [facility] Triglyceride 50 <150 mg/dL [facility] LDL Cholesterol 81 mg/dL (calc) [facility] Comment: Reference range: <100 Desirable range <100 mg/dL for primary prevention; ?? <70 mg/dL for patients with CHD or diabetic patients with > or = 2 CHD risk factors. LDL-C is now calculated using the Girish calculation, which is a validated novel method providing better accuracy than the Friedewald equation in the estimation of LDL-C. Dani SS et al. PROSPER. 2013;310(19): 1257-2767 (http://education.SportsPursuit/faq/LBB564) CHOL/HDL Ratio 3.3 <5.0 (calc) [facility] Cholesterol Non-HDL 93 <130 mg/dL (calc) [facility] Comment: For patients with diabetes plus 1 major ASCVD risk factor, treating to a non-HDL-C goal of <100 mg/dL (LDL-C of <70 mg/dL) is considered a therapeutic option. 05/04/2018 3:04 PM EST 05/04/2018 9:47 PM EST Narrative Resulting Agency Comment [id number] Rachel Kirby NP LABORATORY Final Result [facility] [address] [place] [address] documented in this encounter Visit Diagnoses Diagnosis Screening for lipid disorders Screening for diabetes mellitus Screening for thyroid disorder Bipolar disorder, current episode mixed, mild (HCC) Bipolar I disorder, most recent episode (or current) mixed, mild documented in this encounter Care Teams Hull Grinder Relationship Specialty Start Date End Date Rachel Kirby NP PCP - General Internal Medicine 04/19/18 Fabien [facility] [facility] 07/21/1908/19 Mariia [place] 02/19/23 08/20/23 [facility] 11/20/23 06/21/24 documented as of this encounter
--- OUTSIDE RECORDS SUMMARY | 2024-10-04 16:38 | XMS_ITS | Encounter Summary ---
Author Organization [facility] Address [address] [place] [address] Care Team Providers Care Scroll Saw Operator Name Role Phone Rachel Kirby NP Primary Care Provider [phone] 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 Not on file Not on file documented as of this encounter Plan of Treatment Upcoming Encounters Date Type Department Care Team (Latest Contact Info) Description 11/04/2024 1:20 PM EDT Consult (Initial) [facility] Plastic & Reconstructive Surgery 123 [facility] [address] [place] [address] Geoffrey Fairchild MD 123 [facility] [address] [place] [address] I have what I believe I 11/08/2024 2:05 PM EDT CPE - Comprehensive Physical Exam [facility] 4 [place] [phone] Rachel Kirby NP 4 [place] [address] CPE, HCC 03/14/2025 3:00 PM EDT Office Visit [facility]. Optometry 5 [place] [phone] Juanjose Allen, OD [address] [place] [address] est pt exam annual nodm nocl aodv aoir. elig 03/14/2025, 06/14mos EM $0 cp documented as of this encounter Goals Goal Patient Goal Type Associated Problems Recent Progress Patient-Stated? Author Quit smoking / using tobacco Lifestyle No Tiera Jones, JHON Note: Smoking can cause cancer, heart attacks, [...] at . Any insurance accepted. Quit smoking resources-http://Public [email or web address] documented as of this encounter Visit Diagnoses Not on filedocumented in this encounter Care Teams Scroll Saw Operator Relationship Specialty Start Date End Date Rachel Kirby NP PCP - General Internal Medicine 04/19/18 Micah Chiang [facility] 02/19/23 08/20/23 Ree [facility] 11/20/23 06/21/24 documented as of this encounter
--- OUTSIDE RECORDS SUMMARY | 2024-10-04 16:38 | XMS_ITS | Encounter Summary ---
Author Organization [facility] Address [address] [place] [address] Care Team Providers Care Gear Tooth Lapping Machine Operator Name Role Phone Rachel Kirby NP Primary Care Provider [phone] [facility] U navailable [facility] Unavailabl e Unavailable Reason for Visit * Reason Comments E-prescribing Refill Request Encounter Details Date Type Department Care Team ([facility] st Contact Info) Description 01/11/2022 Refill [facility] 4 [place] [address] Rachel Kirby NP 4 [place] [address] E-prescribing Refill Request Social History Tobacco Use [...] file Not on file 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 Not on file Not on file documented as of this encounter Miscellaneous Notes * Telephone Encounter - Rachel Kirby NP - 01/11/2022 2:33 PM EDT Rx sent for 1 month As advised previously she needs a psychiatrist for future refills/ prescriptions I have not seen her in a year and received no information from a provider regarding her medical or mental health Flexeril not refilled per prior discussions * Telephone Encounter - Darek Cox - 01/11/2022 1:52 PM EDT Concerns for Provider Review: Pt is in a program that requires refills on all meds Pt states that her binder caser faxed over her previous order of Flexeril to the office HCC diagnoses are outstanding and no appointment is scheduled in primary care this year Pharmacy Confirmed? The most recent pharmacy on file was used. When is the medication needed? by end of the day, will send HIGH PRIORITY message Past Appointments: Last CPE: 03/03/2021 Last appointment in this department: 03/03/2021No future appointments. Pertinent lab results: No labs suggested for any medication orders signed or pended in this encounter. Refresh if any orders changed. BP Readings from Last 1 Encounters: 03/03/21 124/70 Pended medication order(s) and sent to provider. Patient expects medication renewal unless notifiedotherwise. Outstanding Lab Orders (Orders in bold are overdue or due now and should be done as soon as possible) Test Expected Date Ordering Provider CHLAMYDIA TRACHOMATIS/N. GONORRHOEAE (GC) RNA, TMA (URINE) 03/03/2021 Rachel Kirby NP documented in this encounter Plan of Treatment Upcoming Encounters Date Type Department Care Team (Latest Contact Info) Description 11/04/2024 1:20 PM EDT Consult (Initial) [facility] Plastic & Reconstructive Surgery 123 [facility] [address] [place] [address] Geoffrey Fairchild MD 123 [facility] [address] [place] [address] I have what I believe I 11/08/2024 2:05 PM EDT CPE - Comprehensive Physical Exam [facility] 4 [place] [phone] Rachel Kirby NP 4 [place] [address] CPE, HCC 03/14/2025 3:00 PM EDT Office Visit [facility]. Optometry 5 [place] [phone] Juanjose Allen, JERONIMO [address] [place] [address] est pt exam annual nodm nocl aodv [...] at . Any insurance accepted. Quit smoking resources-http://[email or web address] documented as of this encounter Visit Diagnoses Not on filedocumented in this encounter Care Teams Gear Tooth Lapping Machine Operator Relationship Specialty Start Date End Date Rachel Kirby NP PCP - General Internal Medicine 04/19/18 [facility] 02/19/23 08/20/23 Ree [facility] 11/20/23 06/21/24 documented as of this encounter
--- OUTSIDE RECORDS SUMMARY | 2024-10-04 16:38 | XMS_ITS | Encounter Summary ---
Author Organization [facility] Address [address] [place] [address] Care Team Providers Care Insurance Consultant Name Role Phone Rachel Kirby NP Primary Care Provider [phone] Sharif Serrano MD Unavailable [phone] Berta Mcintosh MD Primary Care Provider Yasmani Cook MD Primary Care Provider [phone] Unknown Pcp, Non [facility] [place] Primary Care Provider Unava ilable Yasmani Cook MD Primary Care Provider Yasmani Cook MD Primary Care Provider [phone] Rachel Kirby NP Primary Care Provider [phone] Care, [facility] Unavailable Unavai [facility], [facility] Unavailable U navailable [facility] Unavailabl e Unavailable Encounter Details Date Type Department Care Team (Late st Contact Info) Description 09/23/2009 Orders Only [facility] 7 [address] [place] [phone] Vannesa Marin PA [facility] [address] Dani Chi Jr[address] [facility] 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 Optometry 5 [place] [phone] Juanjose Allen, JERONIMO 5 [place] [address] est pt exam annual nodm nocl aodv aoir. elig 03/14/2025, 06/14mos EM $0 cp documented as of this encounter Procedures * Due to [place] state law, this organization might not be sharing negative HIV tests. Procedure Name Priority Date/Time Associated Diagnosis Comments MONOSPOT Routine 09/23/2009 Malaise and fatigue CBC 5 PART DIFF Routine 09/23/2009 Malaise and fatigue HEPATIC FUNCTION PANEL Routine 09/23/2009 Malaise and fatigue documented in this encounter Results * Due to [place] state law, this organization might not be sharing negative HIV tests. * HEPATIC FUNCTION PANEL (09/23/2009) Total Protein 6.9 6.2 - 8.3 G/DL [facility] ALBUMIN 4.3 3.7 - 5.1 G/DL [facility] GLOBULIN 2.6 2.2 - 3.9 G/DL [facility] ALBUMIN/GLOBULIN RATIO 1.7 1.0 - 2.1 [facility] BILIRUBIN TOTAL 0.2 0.2 - 1.2 MG/DL [facility] BILIRUBIN DIRECT 0.1 0 - 0.3 MG/DL [facility] ALKALINE PHOSPHATASE 76 33 - 115 U/L [facility] AST (SGOT) 15 10 - 30 U/L [facility] ALT (SGPT) 15 6 - 40 U/L [facility] 09/23/2009 09/23/2009 5:3 2 PM EDT Vannesa LOPE[facility] LABORATORY Final Result Performing Organization Address City/State/[facility] Co de Phone Number [facility] [address] [place] [address] * CBC 5 PART DIFF (09/23/2009) WHITE BLOOD COUNT 7.6 3.8 - 10.8 THOUS/UL [facility] RBC 4.30 3.80 - 5.10 MIL/UL [facility] Hemoglobin 13.4 11.7 - 15.5 G/DL [facility] HCT (HEMATOCRIT) 41.2 35.0 - 45.0 % [facility] MCV 95.9 80.0 - 100.0 FL [facility] MCH 31.3 27.0 - 33.0 PG [facility] MCHC 32.6 32.0 - 36.0 G/DL [facility] BAND % 0 0 - 5 % [facility] NEUTROPHIL % 68 48 - 75 % [facility] LYMPHOCYTE % 22 17 - 40 % [facility] MONOCYTE % 7 0 - 14 % [facility] EOSINOPHIL % 2 0 - 5 % [facility] BASOPHIL % 1 0 - 3 % [facility] ATYPICAL LYMPHOCYTE % 0 0 - 5 % [facility] PLATELETS 221 140 - 400 THOUS/UL [facility] BANDS # 0 0 - 750 CELLS/MCL [facility] NEUTROPHILS # 5168 1500 - 7800 CELLS/MCL [facility] LYMPHOCYTES # 1672 850 - 3900 CELLS/MCL [facility] MONOCYTES # 532 200 - 950 CELLS/MCL [facility] EOSINOPHILS # 152 15 - 550 CELLS/MCL [facility] BASOPHILS # 76 0 - 200 CELLS/MCL [facility] ATYPICAL LYMPHOCYTES # 0 0 - 200 CELLS/MCL [facility] RDW 13.2 11.0 - 15.0 % [facility] MPV 9.3 7.5 - 11.5 FL [facility] 09/23/2009 09/23/2009 5:3 2 PM EDT Vannesa LOPEZ LAB SAME DAY RESULT Final Result Performing Organization Address City/[facility]/ZIP Co de Phone Number [facility] [address] [place] [address] * MONOSPOT (09/23/2009) Heterophile Ab NEGATIVE SEE BELOW [facility] Comment: REFERENCE: NEGATIVE: HETEROPHILE IF POSITIVE INDICATES CURRENT, PRIMARY INFECTION. 09/23/2009 09/23/2009 5:3 2 PM EDT Vannesa [facility] LAB SAME DAY RESULT Final Result Performing Organization Address [facility]/ZIP Co de Phone Number [facility] [address] [place] [address] documented in this encounter Visit Diagnoses Diagnosis Malaise and fatigue Other malaise and fatigue documented in this encounter Care Teams Insurance Consultant Relationship Specialty Start Date End Date Rachel Kirby NP [address] [place] [address] PCP - General 05/22/10 04/17/11 Sharif Serrano MD [address] [place] [address] PCP - Backup PCP 06/20/08 04/17/11 Berta Mcintosh MD [address] [address] PCP - General 04/18/11 12/30/12 Yasmani Cook MD [address] [place] [address] PCP - General Internal Medicine 12/31/12 12/29/14 Unknown Pcp, Non [facility] PCP - General 12/30/14 09/03/15 Yasmani Cook MD [address] [place] [address] PCP - General Internal Medicine 09/04/15 02/28/18 Yasmani Cook MD [facility] [address] PCP - General 03/01/18 04/18/18 Rachel Kirby NP PCP - General Internal Medicine 04/19/18 [facility] 07/21/1908/19 [facility] 02/19/23 08/20/23 [facility] 11/20/23 06/21/24 documented as of this encounter
--- OUTSIDE RECORDS SUMMARY | 2024-10-04 16:38 | XMS_ITS | Encounter Summary ---
Author Organization [facility] Address [address] [place] [address] Care Team Providers Care Ball Rolling Machine Operator Name Role Phone Rachel Kirby NP Primary Care Provider [phone] Reason for Visit * Reason Comments Care Coordination Communication Encounter Details Date Type Department Care Team (Late st Contact Info) Description 09/12/2024 Telephone [facility] [address] [place] [address] Janice Macedo, [facility] [address] [place] [address] Care Coordination Communication Social History Tobacco Use Types Packs/Day Years [...] / family Once a week 02/04/2022 Attend mandaeism services Never 2021 Club Membership No 02/04/2022 [...] PM EDT documented as of this encounter Miscellaneous Notes * Telephone Encounter - Janice Macedo LICSW - 10/04/2024 3:58 PM EDT Outreach made to patient for purpose of completing Hospital discharge assessment. Attempt made via Mail. Attempt number: 3. * Telephone Encounter - Janice Macedo LICSW - 09/19/2024 2:26 PM EDT Outreach made to patient for purpose of completing Hospital discharge assessment. Attempt made via [employer] message: Attempt number: 2. * Telephone Encounter - Janice Macedo LICSW - 09/12/2024 1:29 PM EDT [facility] F33.2 Major depressv disorder, recurrent severe w/o psych featur Outreach made to patient for purpose of completing Hospital discharge assessment. Attempt made via Telephone. Were you able to reach patient? No Message left yes. Attempt number: 1. documented in this encounter Plan of Treatment Upcoming Encounters Date Type Department Care Team (Latest Contact Info) Description 11/04/2024 1:20 PM EDT Consult (Initial) [facility] Plastic & Reconstructive Surgery 123 [facility] [address] [place] [address] Geoffrey Fairchild MD 123 [facility] [address] [place] [address] I have what I believe I 11/08/2024 2:05 PM EDT CPE - Comprehensive Physical Exam [facility] 4 [place] [phone] Rachel Kirby NP 4 [place] [address] LINDA, HCC 03/14/2025 3:00 PM EDT Office Visit [facility]. Optometry 5 [place] [phone] Juanjose Allen, OD 5 [place] [address] est pt exam annual nodm nocl aodv [...] at . Any insurance accepted. Quit smoking resources-[email or web address] documented as of this encounter Visit Diagnoses Not on filedocumented in this encounter Care Teams Ball Rolling Machine Operator Relationship Specialty Start Date End Date Rachel Kirby NP PCP - General Internal Medicine 04/19/18 documented as of this encounter
--- OUTSIDE RECORDS SUMMARY | 2024-10-04 16:38 | XMS_ITS | Encounter Summary ---
Author Organization [facility] Address [address] [place] [address] Care Team Providers Care Jordan Worker Name Role Phone Rachel Kirby NP Primary Care Provider [phone] Care, [facility] Unavailable Unavai [facility], [facility] Unavailable U navailable [facility], [facility] Unavailabl e Unavailable Encounter Details Date Type Department Care Team (Late st Contact Info) Description 05/29/2019 Orders Only [facility] [address] [place] [address] Rachel Kirby NP [address] [place] [address] Social History Tobacco Use Types Packs/Day Years [...] 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 * Rachel Kirby NP - 05/29/2019 4:32 PM EST Negative TB and positive immunity titers noted and forwarded to patient. documented in this encounter Plan of Treatment Upcoming Encounters Date Type Department Care Team (Latest Contact Info) Description 11/04/2024 1:20 PM EDT Consult (Initial) [facility] Plastic & Reconstructive Surgery [address] [address] Geoffrey Fairchild MD [address] [address] I have what I believe I 11/08/2024 2:05 PM EDT CPE - Comprehensive Physical Exam [facility] [address] [place] [phone] Rachel Kirby NP [address] [place] [address] CPE, HCC 03/14/2025 3:00 PM EDT Office Visit [facility]. Optometry [address] [place] [phone] Juanjose Allen, JERONIMO [address] [place] [address] est pt exam annual nodm nocl aodv [...] at . Any insurance accepted. Quit smoking resources-[email or web address].OrdrIt documented as of this encounter Procedures * Due to [place] [employer] law, this organization might not be sharing negative HIV tests. Procedure Name Priority Date/Time Associated Diagnosis Comments VENIPUNCTURE Routine 05/29/2019 4:32 PM EST Screening for condition VARICELLA-ZOSTER VIRUS (VZV) ANTIBODY IGG, SERUM Routine 05/29/2019 4:32 PM EST Screening for condition MEASLES IGG AB (RUBEOLA) Routine 05/29/2019 4:32 PM EST Screening for condition RUBELLA ANTIBODY IGG, SERUM Routine 05/29/2019 4:32 PM EST Screening for condition MUMPS VIRUS ANTIBODY, IGG, SERUM Routine 05/29/2019 4:32 PM EST Screening for condition HEPATITIS B SURFACE ANTIBODY, QUALITATIVE Routine 05/29/2019 4:32 PM EST Screening for condition documented in this encounter Results * Due to [place] [employer] law, this organization might not be sharing negative HIV tests. * (ABNORMAL) HEPATITIS B SURFACE ANTIBODY, QUALITATIVE (05/29/2019 4:32 PM EST) Hepatitis B virus surface Ab REACTIVE(A ) NON-REACT [facility] 05/29/2019 4:32 PM EST 05/30/2019 12:13 AM EST Narrative Resulting Agency Comment [id number] [facility] [place] [facility] Final Result Performing Organization Address [facility] Co de Phone Number [facility] [address] [place] [address] * VARICELLA-ZOSTER VIRUS (VZV) ANTIBODY IGG, SERUM (05/29/2019 4:32 PM EST) Varicella zoster virus Ab.IgG 525.70 index [facility] Comment: ? Index ? Interpretation ? --------- ?<135.00 ?Negative - Antibody not detected ?135.00 - 164.99 ?Equivocal ?> or = 165.00 ?Positive - Antibody detected ?A positive result indicates that the patient ?has antibody to VZV but does not differentiate ?between an active or past infection. ?The clinical diagnosis must be interpreted in ?conjunction with the clinical signs and symptoms of ?the patient. This assay reliably measures immunity ?due to previous infection but may not be ?sensitive enough to detect antibodies induced by ?vaccination. Thus, a negative result in a vaccinated ?individual does not necessarily indicate ?susceptibility to VZV infection. A more sensitive ?test for vaccination-induced immunity is Varicella ?Zoster Virus Antibody Immunity Screen, ACIF. 05/29/2019 4:32 PM EST 05/30/2019 12:13 AM EST Narrative Resulting Agency Comment [id number] Rachel [place] [facility] Final Result Performing Organization Address [facility] de Phone Number [facility] [address] [place] [address] * MUMPS VIRUS ANTIBODY, IGG, SERUM (05/29/2019 4:32 PM EST) Mumps virus Ab.IgG >300.00 AU/mL [facility] Comment: AU/mL ? Interpretation ------- ? <9.00 ? Negative 9.00-10.99 ?Equivocal >10.99 ?Positive A positive result indicates that the patient has antibody to mumps virus. It does not differentiate between an ??active or past infection. The clinical diagnosis must be interpreted in conjunction with clinical signs and symptoms of the patient. 05/29/2019 4:32 PM EST 05/30/2019 12:13 AM EST Narrative Resulting Agency Comment [id number] [facility] Final Result Performing Organization Address [facility] de Phone Number [facility] [address] [place] [address] * MEASLES IGG AB (RUBEOLA) (05/29/2019 4:32 PM EST) Pathologist [facility] Measles virus Ab.IgG 124.00 AU/mL [facility] Comment: AU/mL ?Interpretation ----- ? <13.50 ? Negative 13.50-16.49 ?Equivocal >16.49 ? Positive A positive result indicates that the patient has antibody to measles virus. It does not differentiate between an active or past infection. The clinical diagnosis must be interpreted in conjunction with clinical signs and symptoms of the patient. 05/29/2019 4:32 PM EST 05/30/2019 12:13 AM EST Narrative Resulting Agency Comment [id number] [facility] Final Result [facility] [address] [place] [address] * RUBELLA ANTIBODY IGG, SERUM (05/29/2019 4:32 PM EST) Pathologist [facility] Rubella virus Ab.IgG 1.68 index [facility] Comment: ?Index ?Interpretation ?----- ?<0.90 ?Not consistent with Immunity ?0.90-0.99 ?Equivocal ?> or = 1.00 ?Consistent with Immunity The presence of rubella IgG antibody suggests immunization or past or current infection with rubella virus. 05/29/2019 4:32 PM EST 05/30/2019 12:13 AM EST Narrative Resulting Agency Comment [id number] [facility] Final Result Performing Organization Address City/State/[facility] Co de Phone Number [facility] [address] [place] [address] * QUANTIFERON-TB GOLD (05/29/2019 4:32 PM EST) [facility] Quantiferon(R)-TB Gold Plus NEGATIVE NEGATIVE [facility] Comment: Negative test result. M. tuberculosis complex infection unlikely. NIL 0.04 IU/mL [facility] MITOGEN-NIL >10.00 IU/mL [facility] Mycobacterium tuberculosis tuberculin stimulated gamma interferon^correc willa for background <0.00 IU/mL [facility] TB2-NIL 0.00 IU/mL [facility] Comment: The Nil tube value reflects the background interferon gamma immune response of the patient's blood sample. This value has been subtracted from the patient's displayed TB and Mitogen results. Lower than expected results with the Mitogen tube prevent false-negative Quantiferon readings by detecting a patient with a potential immune suppressive condition and/or suboptimal pre-analytical specimen handling. The TB1 Antigen tube is coated with the M. tuberculosis-specific antigens designed to elicit responses from TB antigen primed CD4+ helper T-lymphocytes. The TB2 Antigen tube is coated with the M. tuberculosis-specific antigens designed to elicit responses from TB antigen primed CD4+ helper and CD8+ cytotoxic T-lymphocytes. For additional information, please refer to https://education.Hydrophi.GreenGar/faq/XRV312 (This link is being provided for informational/ educational purposes only.) 05/29/2019 4:32 PM EST 05/30/2019 12:13 AM EST Narrative Resulting Agency Comment [id number] Rachel Kirby NP LABORATORY Final Result [facility] [address] [place] [id number] documented in this encounter Visit Diagnoses Diagnosis Screening for condition Screening for unspecified condition documented in this encounter Care Teams Jordan Worker Relationship Specialty Start Date End Date Rachel Kirby NP PCP - General Internal Medicine 04/19/18 [facility] 07/21/1908/19 [facility] 02/19/23 08/20/23 [facility] 11/20/23 06/21/24 documented as of this encounter
--- OUTSIDE RECORDS SUMMARY | 2024-10-04 16:38 | XMS_ITS | Encounter Summary ---
Author Organization [facility] Address [address] [place] [address] Care Team Providers Care Animal Cruelty Investigation Supervisor Name Role Phone Fabricio Kirby NP Primary Care Provider [phone] [employer] Unavailabl e Unavailable Reason for Visit * Reason Onset Date Comments Refill Request 12/26/2023 Encounter Details Date Type Department Care Team ([facility] st Contact Info) Description 12/26/2023 Refill [facility] [address] [place] [address] Fabricio Kirby NP [address] [place] [address] Refill Request Social History Tobacco Use Types [...] / family Once a week 02/04/2022 Attend restoration services Never 2021 Club Membership No 02/04/2022 [...] encounter Miscellaneous Notes * Telephone Encounter - Nicole Stuart, Pharmacy Navigator - 12/27/2023 8:29 AM EDT Concerns for Provider Review: Patient is due for an appointment in the next 6 months - no provider action is required. Prepared quantity per protocol fill guidance. Notified patient via letter / MyChart. Pharmacy Confirmed? The most recent pharmacy on file was used. When is the medication needed? within 48 hours, will send routine message Past and Future Appointments in Auth Provider Departments: Recent Visits Date Type Provider Dept 06/09/23 CPE - Comprehensive Physical Exam Fabricio Kirby NP [facility] 11/18/22 Office Visit Fabricio Kirby NP [facility] 02/04/22 Office Visit Fabricio Kirby NP [facility] Showing recent visits within past 720 days in an active department and meeting all other requirements Future Appointments No visits were found meeting these conditions. Showing future appointments within next 400 days in an active department and meeting all other requirements Requested Medication Details Requested Topical Acne: CLINDAMYCIN PHOSPHATE,TOPICAL, (CLEOCIN T) 1 % lotion, Apply topically 2 (two) times a day to face.. Fill Guidance: Prescription should be prepared as previously filled (No Changes). Visit Needs: Patient has been seen in last 6-9 Months but does not have an appointment scheduled in the next 6 Months. Verify future appointments and Send standard communication to the patient to schedule an appointment CPE Needs: None. Patient is not overdue for CPE based on age group or has a upcoming, scheduled CPE. Last Billed CPE Details: Date: 06/09/2023 Department: [facility] Provider: FABRICIO KIRBY Visit Type: Physical Exam Next Scheduled CPE Details: None Pertinent Lab Results and Recommendations Pended medication order(s) and sent to provider. Patient expects medication renewal unless notifiedotherwise. documented in this encounter Plan of Treatment Upcoming Encounters Date Type Department Care Team (Latest Contact Info) Description 11/04/2024 1:20 PM EDT Consult (Initial) [facility] Plastic & Reconstructive Surgery [address] [address] Geoffrey Fairchild MD [address] [address] I have what I believe I 11/08/2024 2:05 PM EDT CPE - Comprehensive Physical Exam [facility] [address] [place] [phone] Fabricio Kirby NP [address] [place] [address] CPE, HCC 03/14/2025 3:00 PM EDT Office Visit [facility]. Optometry [address] [place] [phone] Juanjose Allen, OD [address] [place] [address] est pt exam annual nodm nocl aodv [...] at . Any insurance accepted. Quit smoking resources-[email or web address] [email or web address] Network [email or web address].org documented as of this encounter Visit Diagnoses Not on filedocumented in this encounter Care Teams Animal Cruelty Investigation Supervisor Relationship Specialty Start Date End Date Fabricio Kirby NP PCP - General Internal Medicine 04/19/18 [facility] 11/20/23 06/21/24 documented as of this encounter
--- OUTSIDE RECORDS SUMMARY | 2024-10-04 16:38 | XMS_ITS | Encounter Summary ---
Author Organization [facility] Address [address] [place] [address] Care Team Providers Care Corporate Planner Name Role Phone Rachel Kirby NP Primary Care Provider [phone] Care, [facility] Unavailable Unavai [facility], [facility] Unavailable U navailable [facility], [facility] Unavailabl e Unavailable Encounter Details Date Type Department Care Team (Late st Contact Info) Description 04/09/2019 Orders Only [facility] [address] [place] [address] Rachel Kirby NP [address] [place] [address] Social History Tobacco Use Types Packs/Day Years [...] 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 documented in this encounter Plan of Treatment Upcoming Encounters Date Type Department Care Team (Latest Contact Info) Description 11/04/2024 1:20 PM EDT Consult (Initial) [facility] Plastic & Reconstructive Surgery 123 [facility] [address] [place] [address] Geoffrey Fairchild MD 123 [facility] [address] [place] [address] I have what I believe I 11/08/2024 2:05 PM EDT CPE - Comprehensive Physical Exam [facility] [address] [place] [address] Rachel Kirby NP [address] [place] [address] CPE, HCC 03/14/2025 3:00 PM EDT Office Visit [facility]. Optometry [address] [place] [phone] Juanjose Allen, OD [address] [place] [address] est pt exam annual nodm nocl aodv [...] at . Any insurance accepted. Quit smoking resources-[email or web address] documented as of this encounter Procedures * Due to [place] [employer] law, this organization might not be sharing negative HIV tests. Procedure Name Priority Date/Time Associated Diagnosis Comments PAIN MANAGEMENT PROFILE WITH FENTANYL, URINE (PAINM2+) Routine 04/09/2019 11:28 AM EST Screening for condition VENIPUNCTURE Routine 04/09/2019 11:28 AM EST Non-traumatic rhabdomyolysis CREATINE KINASE (CK), SERUM Routine 04/09/2019 11:28 AM EST Non-traumatic rhabdomyolysis LAMOTRIGINE Routine 04/09/2019 11:28 AM EST Bipolar disorder, current episode mixed, mild COMPREHENSIVE METABOLIC PANEL WITH GFR Routine 04/09/2019 11:28 AM EST Non-traumatic rhabdomyolysis documented in this encounter Results * Due to [place] [employer] law, this organization might not be sharing negative HIV tests. * LAMOTRIGINE (04/09/2019 11:28 AM EST) Lamotrigine 7.6 4.0 - 18.0 mcg/mL [facility] Comment: This test was developed and its analytical performance characteristics have been determined by [facility] [place]. It has not been cleared or approved by the U.S. Food and Drug Administration. This assay has been validated pursuant to the CLIA regulations and is used for clinical purposes. 04/09/2019 11:2 8 AM EST 04/09/2019 10:21 PM EST Narrative Resulting Agency Comment [id number] Rachel Logan [facility] Final Result Performing Organization Address City/[facility]/ZIP Co de Phone Number [facility] [address] [place] [address] * CREATINE KINASE (CK), SERUM (04/09/2019 11:28 AM EST) CPK 59 29 - 143 U/L [facility] 04/09/2019 11:2 8 AM EST 04/09/2019 10:21 PM EST Narrative Resulting Agency Comment [id number] Rachel Logan [facility] SAME DAY RESULT Final Re sult Performing Organization Address [facility] Co de Phone Number [facility] [address] [place] [address] * (ABNORMAL) COMPREHENSIVE METABOLIC PANEL WITH GFR (04/09/2019 11:28 AM EST) Glucose 102(H) 65 - 99 mg/dL [facility] Comment: ? Fasting reference interval For someone without known diabetes, a glucose value between 100 and 125 mg/dL is consistent with prediabetes and should be confirmed with a follow-up test. Urea Nitrogen Blood (BUN) 28(H) 7 - 25 mg/dL [facility] Creatinine 0.71 0.50 - 1.10 mg/dL [facility] EGFR 110 > OR = 60 mL/min/1.7 3m2 [facility] GFR () 128 > OR = 60 mL/min/1.7 3m2 [facility] BUN/Creatinine Ratio 39(H) 6 - 22 (calc) [facility] Sodium 141 135 - 146 mmol/L [facility] Potassium 3.7 3.5 - 5.3 mmol/L [facility] Chloride 107 98 - 110 mmol/L [facility] Carbon dioxide 22 20 - 32 mmol/L [facility] Calcium 9.5 8.6 - 10.2 mg/dL [facility] Protein Total (Serum) 6.9 6.1 - 8.1 g/dL [facility] Albumin 4.4 3.6 - 5.1 g/dL [facility] Globulin 2.5 1.9 - 3.7 g/dL (calc) [facility] Albumin/Globulin 1.8 1.0 - 2.5 (calc) [facility] Bilirubin Total 0.3 0.2 - 1.2 mg/dL [facility] Alkaline phosphatase 50 33 - 115 U/L [facility] AST (SGOT) 10 10 - 30 U/L [facility] ALT (SGPT) 9 6 - 29 U/L [facility] 04/09/2019 11:2 8 AM EST 04/09/2019 10:21 PM EST Narrative [facility] - 04/10/2019 1:10 AM EST Please note that this estimated [...] needs for GFR calculation. Resulting Agency Comment [id number] Rachel Kirby NP LABORATORY Final Result [facility] [address] [place] [address] * CBC INCLUDES DIFFERENTIAL AND PLATELET COUNT (04/09/2019 11:28 AM EST) WBC 7.1 3.8 - 10.8 Thousand/u L [facility] RBC 4.17 3.80 - 5.10 Million/uL [facility] Hemoglobin 13.2 11.7 - 15.5 g/dL [facility] Hematocrit 39.9 35.0 - 45.0 % [facility] MCV 95.7 80.0 - 100.0 fL [facility] MCH 31.7 27.0 - 33.0 pg [facility] MCHC 33.1 32.0 - 36.0 g/dL [facility] RDW 12.3 11.0 - 15.0 % [facility] PLT 218 140 - 400 Thousand/u L [facility] MPV 12.2 7.5 - 12.5 fL [facility] Neutrophils # 4814 1500 - 7800 cells/uL [facility] Lymphocytes # 1896 850 - 3900 cells/uL [facility] Monocytes # 320 200 - 950 cells/uL [facility] Eosinophils # 21 15 - 500 cells/uL [facility] Basophils # 50 0 - 200 cells/uL [facility] Neutrophils % 67.8 % [facility] Lymphocytes % 26.7 % [facility] Monocytes % 4.5 % [facility] Eosinophils % 0.3 % [facility] Basophils % 0.7 % [facility] 04/09/2019 11:2 8 AM EST 04/09/2019 10:21 PM EST Narrative Resulting Agency Comment [id number] Rachel Kirby [facility] SAME DAY RESULT Final Re kranthi [facility] [address] [place] [address] * PAIN MANAGEMENT PROFILE WITH FENTANYL, URINE (PAINM2+) (04/09/2019 11:28 AM EST) Fentanyl Screen (Urine) NEGATIVE CONFIRMED <0.5 ng/mL [facility] Comment:See Note 1 Fentanyl Confirmation (Urine) NEGATIVE <0.5 ng/mL [facility] Comment:See Note 1 Norfentanyl (Urine) NEGATIVE <0.5 ng/mL [facility] Comment:See Note 1 COMMENT SEE NOTE [facility] Comment:See Note 2 Creatinine (Urine) 224.3 > or = 20.0 mg/dL [facility] pH (Urine) 5.7 4.5 - 9.0 [facility] OXIDANT NEGATIVE <200 mcg/mL [facility] Amphetamines (Screen) NEGATIVE <500 ng/mL [facility] Barbiturates (Urine) NEGATIVE <300 ng/mL [facility] Benzodiazepine And Metabolites, Urine NEGATIVE <100 ng/mL [facility] Buprenorphine (Suboxone) (Urine) NEGATIVE <5 ng/mL [facility] Benzoylecgonine (Cocaine Metabolite) (Urine) NEGATIVE <150 ng/mL [facility] 6-Monoacetylmorphine (Heroin Metabolite) (Urine) NEGATIVE <10 ng/mL [facility] Tetrahydrocannabinol (Urine) NEGATIVE <20 ng/mL [facility] MDMA/MDA NEGATIVE <500 ng/mL [facility] EDDP ( Methadone Metabolite) NEGATIVE <100 ng/mL [facility] Opiates (Urine) NEGATIVE <100 ng/mL [facility] Oxycodone (Urine) NEGATIVE <100 ng/mL [facility] Phencyclidine (Urine) NEGATIVE <25 ng/mL [facility] COMMENT SEE NOTE [facility] Comment: See Note 2 Note 1 This test was developed and its analytical performance characteristics have been determined by [facility]. It has not been cleared or approved by the FDA. This assay has been validated pursuant to the CLIA regulations and is used for clinical purposes. Note 2 This drug testing is for medical treatment only. ?? Analysis was performed as non-forensic testing and these results should be used only by healthcare providers to render diagnosis or treatment, or to monitor progress of medical conditions. For assistance with interpreting these drug results, please contact a [facility] Toxicology Specialist: [phone] ( ), M-F, 8am-6pm EST. 04/09/2019 11:2 8 AM EST 04/09/2019 10:21 PM EST Narrative Resulting Agency Comment [id number] Rachel Kirby NP LABORATORY Final Result [facility] [address] [place] [address] documented in this encounter Visit Diagnoses Diagnosis Screening for condition Screening for unspecified condition Non-traumatic rhabdomyolysis Bipolar disorder, current episode mixed, mild (HCC) Bipolar I disorder, most recent episode (or current) mixed, mild documented in this encounter Care Teams Corporate Planner Relationship Specialty Start Date End Date Rachel Kirby NP PCP - General Internal Medicine 04/19/18 [facility] 07/21/1908/19 [facility] 02/19/23 08/20/23 [facility] 11/20/23 06/21/24 documented as of this encounter
--- OUTSIDE RECORDS SUMMARY | 2024-10-04 16:38 | XMS_ITS | Encounter Summary ---
Author Organization [facility] Address [address] [place] [address] Care Team Providers Care Machine Coil Assembler Name Role Phone Rachel Kirby NP Primary Care Provider [phone] Care, [facility] Unavailable Unavai [facility], [facility] Unavailable U navailable [facility], [facility] Unavailabl e Unavailable Encounter Details Date Type Department Care Team (Late st Contact Info) Description 03/19/2019 Orders Only [facility] [address] [place] [address] Rachel Kirby NP [address] [place] [address] Social History Tobacco Use Types Packs/Day Years [...] 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 Not on file documented as of this encounter Plan of Treatment Upcoming Encounters Date Type Department Care Team (Latest Contact Info) Description 11/04/2024 1:20 PM EDT Consult (Initial) [facility] Plastic & Reconstructive Surgery 123 [facility] [address] [place] [address] Geoffrey Fairchild MD 123 [facility] [address] [place] [address] I have what I believe I 11/08/2024 2:05 PM EDT CPE - Comprehensive Physical Exam [facility] [address] [place] [phone] Rachel Kirby NP [address] [place] [address] CPE, HCC 03/14/2025 3:00 PM EDT Office Visit [facility]. Optometry [address] [place] [address] Juanjose Allen, JERONIMO [address] [place] [address] est pt exam annual nodm nocl aodv [...] at . Any insurance accepted. Quit smoking resources-[email or web address] documented as of this encounter Visit Diagnoses Not on filedocumented in this encounter Care Teams Machine Coil Assembler Relationship Specialty Start Date End Date Rachel Kirby NP PCP - General Internal Medicine 04/19/18 [facility] [place] [facility] 07/21/1908/19 [facility] 02/19/23 08/20/23 [facility] Ass[facility] 11/20/23 06/21/24 documented as of this encounter
--- OUTSIDE RECORDS SUMMARY | 2024-10-04 16:38 | XMS_ITS | Encounter Summary ---
Author Organization [facility] Address [address] [place] [address] Care Team Providers Care Seismic Engineer Name Role Phone Rachel Kirby NP Primary Care Provider [phone] [facility] Unavailable U navailable [facility] Unavailabl e Unavailable Encounter Details Date Type Department Care Team (Late st Contact Info) Description 02/24/2021 Orders Only [facility] [address] [place] [phone] Victoria Calhoun, RN Social History Tobacco Use Types Packs/Day Years Used Date Smoking Tobacco: Every Day Cigarettes 1 24.3 Started: 06/04/2000 Smokeless Tobacco: Current Comments:Started at age 16. Alcohol Use Standard Drinks/Week Comments No 0 (1 standard drink = 0.6 oz pur e alcohol) Sober September 2017 PHQ-2 Answer Date Recorded PHQ-2 Score 0 [...] as of this encounter Miscellaneous Notes * Result Encounter Note - Rachel Kirby NP - 02/24/2021 12:54 PM EDT . documented in this encounter Plan of Treatment Upcoming Encounters Date Type Department Care Team (Latest Contact Info) Description 11/04/2024 1:20 PM EDT Consult (Initial) [facility] Plastic & Reconstructive Surgery [address] [facility] [address] [place] [address] Geoffrey Fairchild MD 123 [facility] [address] [place] [address] I have what I believe I 11/08/2024 2:05 PM EDT CPE - Comprehensive Physical Exam [facility] 4 [place] [phone] Rachel Kirby NP 4 [place] [address] CPE, HCC 03/14/2025 3:00 PM EDT Office Visit [facility]. Optometry [address] [place] [phone] Juanjose Allen, OD [address] [place] [address] est pt exam annual nodm nocl aodv [...] at . Any insurance accepted. Quit smoking resources-[email or web address] documented as of this encounter Procedures * Due to [place] [employer] law, this organization might not be sharing negative HIV tests. Procedure Name Priority Date/Time Associated Diagnosis Comments HEPATIC FUNCTION PANEL (ALT,AST,ALK PH,BILI'S,TP,ALB) Routine 02/24/2021 12:54 PM EDT Hx of substance abuse BASIC METABOLIC PANEL WITH (GFR) Routine 02/24/2021 12:54 PM EDT Hx of substance abuse documented in this encounter Results * Due to [place] [employer] law, this organization might not be sharing negative HIV tests. * BASIC METABOLIC PANEL WITH (GFR) (02/24/2021 12:54 PM EDT) Glucose 99 65 - 99 mg/dL [facility] Comment:Fasting reference in terval Urea Nitrogen Blood (BUN) 14 7 - 25 mg/dL [facility] Creatinine 0.83 0.50 - 1.10 mg/dL [facility] EGFR 91 > OR = 60 mL/min/1. 73m2 [facility] GFR () 105 > OR = 60 mL/min/1. 73m2 [facility] BUN/Creatinine Ratio NOT APPLICABLE 6 - 22 (calc) [facility] Sodium 142 135 - 146 mmol/L [facility] Potassium 4.4 3.5 - 5.3 mmol/L [facility] Chloride 106 98 - 110 mmol/L [facility] Carbon dioxide 29 20 - 32 mmol/L [facility] Calcium 9.5 8.6 - 10.2 mg/dL [facility] 02/24/2021 12:5 4 PM EDT 02/24/2021 2:34 PM EDT Narrative [facility] - 02/25/2021 12:31 AM EDT Please note that this estimated GFR does [...] needs for GFR calculation. Resulting Agency Comment [id number] Rachel Kirby NP LABORATORY Final Result Performing Organization Address [facility] Co de Phone Number [facility] [address] [place] [address] * (ABNORMAL) HEPATIC FUNCTION PANEL (ALT,AST,ALK PH,BILI'S,TP,ALB) (02/24/2021 12:54 PM EDT) Protein Total (Serum) 7.1 6.1 - 8.1 g/dL [facility] Albumin 4.4 3.6 - 5.1 g/dL [facility] Globulin 2.7 1.9 - 3.7 g/dL (calc) [facility] Albumin/Globulin 1.6 1.0 - 2.5 (calc) [facility] Bilirubin Total 0.2 0.2 - 1.2 mg/dL [facility] Bilirubin Direct 0.1 < OR = 0.2 mg/dL [facility] Bilirubin Indirect 0.1(L) 0.2 - 1.2 mg/dL (calc) [facility] Alkaline phosphatase 84 31 - 125 U/L [facility] AST (SGOT) 21 10 - 30 U/L [facility] ALT (SGPT) 28 6 - 29 U/L [facility] 02/24/2021 12:5 4 PM EDT 02/24/2021 2:34 PM EDT Narrative Resulting Agency Comment [id number] Rachel Kirby NP LABORATORY Final Result Performing Organization Address [facility] Co de Phone Number [facility] [address] [place] [address] documented in this encounter Visit Diagnoses Diagnosis Hx of substance abuse Other, mixed, or unspecified nondependent drug abuse, unspecified documented in this encounter Care Teams Seismic Engineer Relationship Specialty Start Date End Date Rachel Kirby NP PCP - General Internal Medicine 04/19/18 Micah Chiang [facility] Health Assistants 02/19/23 08/20/23 [facility] 11/20/23 06/21/24 documented as of this encounter
--- OUTSIDE RECORDS SUMMARY | 2024-10-04 16:38 | XMS_ITS | Encounter Summary ---
Author Organization [facility] Address [address] [place] [address] Care Team Providers Care Corporate Planner Name Role Phone Rachel Kirby NP Primary Care Provider 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 I would like to refer her to GI foradditional testing and treatment if indicated. If agreeable I will place the consult. documented in this encounter Plan of Treatment Upcoming Encounters Date Type Department Care Team (Latest Contact Info) Description 11/04/2024 1:20 PM EDT Consult (Initial) [facility] Plastic & Reconstructive Surgery 123 [facility] [address] [place] [address] Geoffrey Fairchild MD 123 [facility] [address] [place] [address] I have what I believe I 11/08/2024 2:05 PM EDT CPE - Comprehensive Physical Exam [facility] [address] [place] [phone] Rachel Kirby NP [address] [place] [address] CPE, HCC 03/14/2025 3:00 PM EDT Office Visit [facility]. Optometry [address] [place] [address] Juanjose Allen OD [address] [place] [address] est pt exam annual nodm nocl aodv aoir. elig 03/14/2025, 06/14mos EM $0 cp documented as of this encounter Goals Goal Patient Goal Type Associated Problems Recent Progress Patient-Stated? Author Quit smoking / using tobacco Lifestyle No Tiera Jones, CAR ATTENDANT Note: Smoking can cause cancer, heart attacks, [...] at . Any insurance accepted. Quit smoking resources-[email or web address] documented as of this encounter Procedures * Due to [place] [employer] law, this organization might not be sharing negative HIV tests. Procedure Name Priority Date/Time Associated Diagnosis Comments SYPHILIS (FTA) ANTIBODY CASCADING REFLEX TO RPR/TITER (*PREFERRED SCREEN*) Routine 03/03/2021 11:35 AM EDT Screen for STD (sexually transmitted disease) CBC INCLUDES DIFFERENTIAL AND PLATELET COUNT Routine 03/03/2021 11:35 AM EDT Screening for condition THYROID STIMULATING HORMONE (TSH) WITH FREE T4 REFLEX, SERUM Routine 03/03/2021 11:35 AM EDT Screening for thyroid disorder HEMOGLOBIN A1C Routine 03/03/2021 11:35 AM EDT Screening for diabetes mellitus HEPATITIS PANEL, ACUTE W/REFLEX Routine 03/03/2021 11:35 AM EDT Screen for STD (sexually transmitted disease) VENIPUNCTURE Routine 03/03/2021 11:35 AM EDT Screening for lipid disorders documented in this encounter Results * Due to [place] [employer] law, this organization might not be sharing negative HIV tests. * SYPHILIS (FTA) ANTIBODY CASCADING REFLEX TO RPR/TITER (*PREFERRED SCREEN*) (03/03/2021 11:35 AM EDT) Treponema pallidum Ab NEGATIVE NEGATIVE [facility] Comment: No antibodies to T. pallidum (the agent causing syphilis) were detected in the specimen. This result, however, does not exclude very recent T. pallidum infection; testing of a second specimen, collected 2-4 weeks after this specimen, is recommended if the index of suspicion for recent infection is high. 03/03/2021 11:3 5 AM EDT 03/03/2021 2:20 PM EDT Narrative Resulting Agency Comment [id number] Rachel Kirby NP LABORATORY Final Result Performing Organization Address City/State/[facility] Co de Phone Number [facility] [address] [place] [address] * (ABNORMAL) HEPATITIS PANEL, ACUTE W/REFLEX (03/03/2021 11:35 AM EDT) Hepatitis A virus Ab.IgM NON-REAC TIVE NON-REACTIV E [facility] Comment: For additional information, please refer to http://education.[employer].Inporia/faq/KEC260 (This link is being provided for informational/ educational purposes only.) Hepatitis B virus surface Ag NON-REAC TIVE NON-REACTIV E [facility] Hepatitis B virus core Ab.IgM NON-REAC TIVE NON-REACTIV E [facility] Hepatitis C virus Ab REACTIVE (A) NON-REACTIV E [facility] Hepatitis C virus Ab Signal/Cutoff 20.00(H) <1.00 [facility] Comment: Based on this result, the sample will be tested for HCV RNA by a Nucleic Acid Amplification Test (NAAT) to determine if the patient has a current active infection. Hepatitis C virus RNA 341(H) NOT DETECTED IU/mL [facility] Hepatitis C virus RNA - Log 2.53(H) NOT DETECTED Log IU/mL [facility] Comment: HCV RNA was detected. This result provides laboratory evidence of a current active HCV infection. COMMENT SEE NOTE [facility] Comment: This test was performed using Real-Time Polymerase Chain Reaction. Reportable Range: 15 IU/mL to 100,000,000 IU/mL (1.18 Log IU/mL to 8.00 Log IU/mL). The analytical performance characteristics of this assay have been determined by [employer]. The modifications have not been cleared or approved by the FDA. This assay has been validated pursuant to the CLIA regulations and is used for clinical purposes. ?? For more information on this test, go to: http://education.[employer]/faq/MEJ64j4 (This link is being provided for informational/ educational purposes only.) This assay is intended for use as an aid in the diagnosis of HCV infection and the management of HCV infected patients undergoing anti-viral therapy. 03/03/2021 11:3 5 AM EDT 03/03/2021 2:20 PM EDT Narrative Resulting Agency Comment [id number] [facility] LABORATORY Final Result Performing Organization Address [facility] de Phone Number [facility] [address] [place] [address] * HEMOGLOBIN A1C (03/03/2021 11:35 AM EDT) Hemoglobin A1C 5.1 <5.7 % of total Hgb [facility] Comment: For the purpose of screening for the presence of diabetes: <5.7% ? Consistent with the absence of diabetes 5.7-6.4% ?Consistent with increased risk for diabetes ?(prediabetes) > or =6.5% ??Consistent with diabetes This assay result is consistent with a decreased risk of diabetes. Currently, no consensus exists regarding use of hemoglobin A1c for diagnosis of diabetes in children. According to [place] Diabetes Association (ADA) guidelines, hemoglobin A1c <7.0% represents optimal control in non- diabetic patients. Different metrics may apply to specific patient populations. Standards of Medical Care in Diabetes(ADA). Estimated Average Glucose 104 mg/dL (calc) [facility] 03/03/2021 11:3 5 AM EDT 03/03/2021 2:20 PM EDT Narrative Resulting Agency Comment [id number] [facility] LABORATORY Final Result Performing Organization Address [facility] de Phone Number [facility] [address] [place] [address] * CBC INCLUDES DIFFERENTIAL AND PLATELET COUNT (03/03/2021 11:35 AM EDT) WBC 6.1 3.8 - 10.8 Thousand/u L [facility] RBC 4.23 3.80 - 5.10 Million/uL [facility] Hemoglobin 12.8 11.7 - 15.5 g/dL [facility] Hematocrit 38.8 35.0 - 45.0 % [facility] MCV 91.7 80.0 - 100.0 fL [facility] MCH 30.3 27.0 - 33.0 pg [facility] MCHC 33.0 32.0 - 36.0 g/dL [facility] RDW 13.2 11.0 - 15.0 % [facility] PLT 288 140 - 400 Thousand/u L [facility] MPV 10.8 7.5 - 12.5 fL [facility] Neutrophils # 3038 1500 - 7800 cells/uL [facility] Lymphocytes # 2672 850 - 3900 cells/uL [facility] Monocytes # 299 200 - 950 cells/uL [facility] Eosinophils # 49 15 - 500 cells/uL [facility] Basophils # 43 0 - 200 cells/uL [facility] Neutrophils % 49.8 % [facility] Lymphocytes % 43.8 % [facility] Monocytes % 4.9 % [facility] Eosinophils % 0.8 % [facility] Basophils % 0.7 % [facility] 03/03/2021 11:3 5 AM EDT 03/03/2021 2:20 PM EDT Narrative Resulting Agency Comment [id number] Rachel CrandallKnik SPECIAL CLIENT BUS DRIVER LAB SAME DAY RESULT Final Re sulcristiane [facility] [address] [place] [address] * THYROID STIMULATING HORMONE (TSH) WITH FREE T4 REFLEX, SERUM (03/03/2021 11:35 AM EDT) Pathologist [facility] TSH 2.92 mIU/L [facility] Comment: ?Reference Range ?> or = 20 Years ??0.40-4.50 ? Ranges ?First trimester ?0.26-2.66 ?Second trimester ?? 0.55-2.73 ?Third trimester ?0.43-2.91 03/03/2021 11:3 5 AM EDT 03/03/2021 2:20 PM EDT Narrative Resulting Agency Comment [id number] [facility] LABORATORY Final Result Performing Organization Address [facility] de Phone Number [facility] [address] [place] [address] * (ABNORMAL) LIPID PANEL WITH REFLEX TO DIRECT LDL (03/03/2021 11:35 AM EDT) Cholesterol 171 <200 mg/dL [facility] HDL Cholesterol 45(L) > OR = 50 mg/dL [facility] Triglyceride 98 <150 mg/dL [facility] LDL Cholesterol 107(H) mg/dL (calc) [facility] Comment: Reference range: <100 Desirable range <100 mg/dL for primary prevention; ?? <70 mg/dL for patients with CHD or diabetic patients with > or = 2 CHD risk factors. LDL-C is now calculated using the Dani-Larisa calculation, which is a validated novel method providing better accuracy than the Friedewald equation in the estimation of LDL-C. Dani SS et al. PROSPER. 2013;310(19): 5849-1093 (http://education.[employer]/faq/IFD440) CHOL/HDL Ratio 3.8 <5.0 (calc) [facility] Cholesterol Non-HDL 126 <130 mg/dL (calc) [facility] Comment: For patients with diabetes plus 1 major ASCVD risk factor, treating to a non-HDL-C goal of <100 mg/dL (LDL-C of <70 mg/dL) is considered a therapeutic option. 03/03/2021 11:3 5 AM EDT 03/03/2021 2:20 PM EDT Narrative Resulting Agency Comment [id number] [facility] LABORATORY Final Result Performing Organization Address [facility] de Phone Number [facility] [address] [place] [address] documented in this encounter Visit Diagnoses Diagnosis Screening for lipid disorders Screening for thyroid disorder Screening for condition Screening for unspecified condition Screening for diabetes mellitus Screen for STD (sexually transmitted disease) Screening examination for venereal disease documented in this encounter Care Teams Corporate Planner Relationship Specialty Start Date End Date Rachel Kirby NP PCP - General Internal Medicine 04/19/18 [facility] Micah [facility] 02/19/23 08/20/23 [facility] 11/20/23 06/21/24 documented as of this encounter
--- OUTSIDE RECORDS SUMMARY | 2024-10-04 16:38 | XMS_ITS | Encounter Summary ---
Author Organization [facility] Address [address] [place] [address] Care Team Providers Care Parts Facilitator Name Role Phone Rachel Kirby NP Primary Care Provider [phone] [facility] U navailable [facility] Unavailabl e Unavailable Reason for Visit * Reason Comments Letter/form Request Encounter Details Date Type Department Care Team ([facility] st Contact Info) Description 09/03/2021 Telephone [facility] [address] [place] [phone] Rachel Kirby NP [address] [place] [address] Letter/form Request Social History Tobacco Use Types Packs/Day [...] file Not on file 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 Sent Letter to contact us * Telephone Encounter - Devorah Delacruz - 09/06/2021 9:43 AM EDT Form completed and given to Rachel Bartlett for review / sig * Telephone Encounter - [place] - 09/03/2021 1:35 PM EDT Received request from patient for FMLA. Would like this completed as soon as possible. When completed, please call patient at this phone number- [phone] for pharmacy picking tech at office. Informed patient that this could take a minimum of 3 - 5 business days to complete. This request was sent to rosa folder . documented in this encounter Plan of Treatment Upcoming Encounters Date Type Department Care Team (Latest Contact Info) Description 11/04/2024 1:20 PM EDT Consult (Initial) [facility] Plastic & Reconstructive Surgery [address] [phone] Geoffrey Fairchild MD 123 [facility] [address] [place] [address] I have what I believe I 11/08/2024 2:05 PM EDT CPE - Comprehensive Physical Exam [facility] [address] [place] [phone] Rachel Kirby NP [address] [place] [address] CPE, HCC 03/14/2025 3:00 PM EDT Office Visit [facility]. Optometry [address] [place] [phone] Juanjose Allen, OD [address] [place] [address] est pt exam annual nodm nocl aodv [...] at . Any insurance accepted. Quit smoking resources-[email or web address] documented as of this encounter Visit Diagnoses Not on filedocumented in this encounter Care Teams Parts Facilitator Relationship Specialty Start Date End Date Rachel Kirby NP PCP - General Internal Medicine 04/19/18 Micah Chiang [facility] Health Assistants 02/19/23 08/20/23 [facility] Health Assistants 11/20/23 06/21/24 documented as of this encounter
--- OUTSIDE RECORDS SUMMARY | 2024-10-04 16:38 | XMS_ITS | Encounter Summary ---
Author Organization [facility] Address [address] [place] [address] Care Team Providers Care Liquid Center Assembler Name Role Phone Rachel Kirby NP Primary Care Provider [phone] Sharif Serrano MD Unavailable [phone] Berta Mcintosh MD Primary Care Provider [phone] Yasmani Cook MD Primary Care Provider [phone] Unknown Pcp, Non [facility] [place] Unava ilable Yasmani Cook MD Primary Care Provider [phone] Yasmani Cook MD Primary Care Provider Rachel Kirby NP Primary Care Provider [phone] Care, [facility] Unavailable Unavai [facility], [facility] Unavailable U navailable [facility] Unavailabl e Unavailable Encounter Details Date Type Department Care Team (Late st Contact Info) Description 11/24/2009 Orders Only [facility] [address] [place] [phone] Rachel Kirby NP [address] [place] [address] Social History Tobacco Use Types Packs/Day Years [...] 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 Optometry 5 [place] [phone] Juanjose Allen, JERONIMO [address] [place] [address] est pt exam annual nodm nocl aodv aoir. elig 03/14/2025, 06/14mos EM $0 cp documented as of this encounter Procedures * Due to [place] state law, this organization might not be sharing negative HIV tests. Procedure Name Priority Date/Time Associated Diagnosis Comments LYME DISEASE PANEL W/WB REFLEX Routine 11/24/2009 Erythema migrans (Lyme disease) documented in this encounter Results * Due to [place] state law, this organization might not be sharing negative HIV tests. * LYME DISEASE PANEL W/WB REFLEX (11/24/2009) LYME (B. BURGDORFERI) AB SCREEN NEGATIVE [facility] Comment: < OR = 0.90 ?? NEGATIVE 0.91 - 1.09 ?? EQUIVOCAL > OR = 1.10 ?? POSTIVE LYME EIA SCREEN IS REFLEXED TO WESTERN BLOT IF POSITIVE. 11/24/2009 11/24/2009 10: 53 PM EDT Rachel Kirby NP LABORATORY Final Result [facility] [address] [place] [address] documented in this encounter Visit Diagnoses Diagnosis Erythema migrans (Lyme disease) Lyme disease documented in this encounter Care Teams Liquid Center Assembler Relationship Specialty Start Date End Date Rachel Kirby NP [address] [place] [address] PCP - General 05/22/10 04/17/11 Sharif Serrano MD [address] [place] [address] PCP - Backup PCP 06/20/08 04/17/11 Berta Mcintosh MD [facility] [address] [place] [address] PCP - General 04/18/11 12/30/12 Yasmani Cook MD [address] [place] [address] PCP - General Internal Medicine 12/31/12 12/29/14 Unknown Pcp, Non [facility] PCP - General 12/30/14 09/03/15 Yasmani Cook MD [address] [place] [address] PCP - General Internal Medicine 09/04/15 02/28/18 Yasmani Cook MD [address] [place] [address] PCP - General 03/01/18 04/18/18 MirtaRachel gardner NP PCP - General Internal Medicine 04/19/18 [facility] Health Assistants 07/21/1908/19 [facility] Health Assistants 02/19/23 08/20/23 [facility] Ass[facility] 11/20/23 06/21/24 documented as of this encounter
--- OUTSIDE RECORDS SUMMARY | 2024-10-04 16:38 | XMS_ITS | Encounter Summary ---
Author Organization [facility] Address [address] [place] [address] Care Team Providers Care Bleach Maker Name Role Phone Berta Mcintosh MD Primary Care Provider [phone] Yasmani Cook MD Primary Care Provider Unknown Pcp, Non g Primary Care Provider Unava ilYasmani Roberts MD Primary Care Provider [phone] Yasmani Cook MD Primary Care Provider TanacrossRachel darby NP Primary Care Provider [facility] Unavailable [facility] Unavailable [facility] navailable [facility] Unavailabl e Unavailable Encounter Details Date Type Department Care Team (Late st Contact Info) Description 05/24/2011 Orders Only [facility] [address] [place] [address] Berta Mcintosh MD [facility] [address] [place] [address] Social History Tobacco Use Types Packs/Day Years Used Date Smoking Tobacco: Every Day Cigarettes Smokeless Tobacco: Current Alcohol Use Standard Drinks/Week Comments Yes 0 [...] 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 Not on file Not on file documented as of this encounter Plan of Treatment Upcoming Encounters Date Type Department Care Team (Latest Contact Info) Description 11/04/2024 1:20 PM EDT Consult (Initial) [facility] [address] [facility] [address] [place] [address] Geoffrey Fairchild MD [address] [facility] [address] [place] [address] I have what I believe I 11/08/2024 2:05 PM EDT CPE - Comprehensive Physical Exam [facility] [address] [place] [id number] Rachel Kirby NP [address] [place] [address] [facility], [facility] 03/14/2025 3:00 PM EDT Office Visit [facility] [address] [place] [phone] Juanjose Allen OD [address] [place] [address] est pt exam annual nodm nocl aodv aoir. elig 03/14/2025, 06/14mos EM $0 cp documented as of this encounter Visit Diagnoses Diagnosis Depression with anxiety Dysthymic disorder documented in this encounter Care Teams Bleach Maker Relationship Specialty Start Date End Date Berta Mcintosh MD [facility] [address] [place] [id number] PCP - General 04/18/11 12/30/12 Yasmani Cook MD [address] [place] [address] PCP - General Internal Medicine 12/31/12 12/29/14 Unknown Pcp, Non [facility] PCP - General 12/30/14 09/03/15 Yasmani Cook MD [address] [place] [address] PCP - General Internal Medicine 09/04/15 02/28/18 Yasmani Cook MD [address] [place] [address] PCP - General 03/01/18 04/18/18 Rachel Kirby NP PCP - General Internal Medicine 04/19/18 [facility] 07/21/1908/[facility]/20[facility]23 06/21/24 documented as of this encounter
--- OUTSIDE RECORDS SUMMARY | 2024-10-04 16:38 | XMS_ITS | Clinical Summary ---
Author Organization [facility] Address [address] [place] [address] Care Team Providers Care Pipe Threader Name Role Phone Rachel Kirby NP Primary Care Provider [phone] Allergies No known active allergies Medications DULoxetine HCl (CYMBALTA) 60 MG capsule TAKE ONE CAPSULE (60 MG TOTAL) BY MOUTH 1 (ONE) TIME EACH DAY 30 capsule 2 Active cloNIDine HCl (CATAPRES) 0.2 MG tablet Take one tablet (0.2 mg total) by mouth 2 (two) times a day if needed (anxiety) 20 tablet 2 Active Lamotrigine (LaMICtal) 150 MG tablet Take 150 mg by mouth 1 (one) time each day. 3 Active clonazePAM (KlonoPIN) 1 MG tablet Take 1 mg by mouth 2 (two) times a day if needed for anxiety. 3 Active Gabapentin (NEURONTIN) 800 MG tablet Take 800 mg by mouth 3 (three) times a day. 3 Active CLINDAMYCIN PHOSPHATE,TOPIC AL, (CLEOCIN T) 1 % lotion Apply topically 2 (two) times a day to face.. 60 mL 5 Active Acetaminophen (TYLENOL) 500 MG tablet Take one tablet (500 mg total) by mouth every 6 (six) hours if needed for mild pain or moderate pain. 60 tablet 5 Active Ibuprofen (ADVIL,MOTRIN) 200 MG tablet Take two tablets (400 mg total) by mouth every 6 (six) hours if needed for mild pain or moderate pain. 60 tablet 5 Active QUEtiapine Fumarate (SEROquel) 100 MG tablet Take 100 mg by mouth every night AT BEDTIME DIRECTED. 4 Active busPIRone HCl (BUSPAR) 7.5 MG tablet Take 7.5 mg by mouth in the morning and at bedtime. 5 Active buPROPion HCl (WELLBUTRIN) 100 MG tablet Take 200 mg by mouth 2 (two) times a day. 5 Active Baclofen (LIORESAL) 10 MG tablet TAKE 1 TABLET (10 MG TOTAL) BY MOUTH 3 TIMES A DAY. FOR COCAINE CRAVINGS 4 Active traZODone (DESYREL) 50 MG tablet Take 50 mg by mouth at night if needed for sleep. 4 Active hydrOXYzine HCl (ATARAX) 25 MG tablet Take 1 tablet by mouth every 8 (eight) hours if needed for anxiety. 4 Active ADDERALL XR, 20MG, 20 MG 24 hr capsule Take 20 mg by mouth 1 (one) time each day in the morning. 5 Active Amphetamine-Dex troamphetamine (ADDERALL) 30 MG tablet Take 30 mg by mouth 1 (one) time each day. 4 Active Active Problems Problem Noted Date Diagnosed Date Substance use disorder 03/01/2024 Depression with anxiety 10/13/2023 Hx of substance abuse 05/31/2011 Overview (02/04/2022): Detox with spectrum summer 2021 Methadone Bipolar disorder, current episode mixed, mild Overview (06/09/2023): Depression and anxiety Lamotrigine and duloxetine [facility]BS (irritable bowel syndrome) 02/07/2011 Overview (05/04/2018): Improved after she stopped opiates Tension headache 04/22/2008 Overview (05/04/2018): Has frequent headaches. Tylenol or Ibuprofen prn Tobacco abuse 04/22/2008 Resolved Problems Problem Noted Date Diagnosed Date Resolved Date Pain management 12/31/2012 05/04/2018 Overview (12/31/2012): 01/01- Dr Kinney in [place], back pain a and left arm pain s/p fall, hardware left elbow Change in skin moles 04/22/2008 018 Overview (07/04/2014): Rib pain 04/22/2008 02/07/2011 Overview (06/23/2008): Left lower anterior rib near xiphoid region. Xray ordered. confirmed 04/16/2008 09/07/19 12 Hearing loss 04/16/2008 06/09/2023 Overview (05/04/2018): Normal audiogram 2008 Encounters Date Type Department Care Team Description 09/12/2024 Telephone [facility] [address] [place] [address] Maribeth Constantino, [facility] 09/12/2024 Telephone [facility] [address] [place] [address] Janice Macedo LICSW Care Coordination Communication 09/12/2024 Telephone [facility] [address] [place] [phone] Maira Hutton MA Care Coordination Communication 09/09/2024 Hospital/Inpatient [facility] [address], [place] [phone] [place] [address], Unknown Provider 09/09/2024 Transfer Iron Operator [facility] [address], [place] [phone] [place] [address], Unknown Provider 09/05/2024 Consult (Initial) [facility] [address] [place] [address] Catracho Mcdowell 09/05/2024 Transfer Iron Operator [facility] [address], Unknown Provider 09/04/2024 Consult (Initial) [facility] [address] [place] [address] Catracho Mcdowell 09/03/2024 Transfer Iron Operator [facility] [address], Unknown Provider 08/31/2024 Hospital/Inpatient [facility] [address], Unknown Provider 08/31/2024 Transfer Iron Operator [facility] [address], Unknown Provider 08/31/2024 Hospital/Inpatient [facility] [address] [place] [address] 08/30/2024 ER [place] [address], Unknown Provider 08/30/2024 Telephone [facility] Infectious Disease [address] [place] [address] [address] [place] [address] Cha Torres MD No Show 07/22/2024 Telephone [facility] [address] [place] [phone] Rachel Kirby NP Leg Pain (R) 07/12/2024 Consult (Initial) [place] [address], Unknown Provider from Last 3 Months Immunizations Name Administration Dates Next Due Covid-19, Vector-nr (Bruce), 0.5 Ml 01/27/2021 DTP 12/20/1988 Flu Not O/W Specified, 3yrs & > 02/07/2011 Hep B (pedi) 02/12/1997,09/10/1996,08/09/1996 Influenza,injectable,MDCK, Prsrv Fr,Quad 021 Influenza,injectable,quad,Prsrv Fr 05/29/2019 MMR 08/17/1994 OPV 12/20/1988 PPD/TST (Tuberculin Skin Test) 06/26/2012 Tdap 03/01/2024,05/04/2018 Tdap(Boostrix) 06/23/2008 Family History Medical History Relation Name Comments No Known or Significant Medical History Brother Other Maternal aunt 1 lupus, fibro myalgia Other Maternal aunt 2 fibromyalgia Gastrointestinal Disorder Maternal aunt 3 collitis Cancer (?Type) Maternal grandfather skin Diabetes Maternal uncle Other Mother fibromyalgia/IB S No Known or Significant Medical History Son Relation Name Status Comments Brother Alive Father Maternal aunt 1 Maternal aunt 2 Maternal aunt 3 Maternal grandfather Maternal grandmother Maternal uncle Mother Alive Paternal grandfather Alive Paternal grandmother Son Alive Social History Tobacco Use Types Packs/Day Years [...] / family Once a week 02/04/2022 Attend sikhism services Never 2021 Club Membership No 02/04/2022 [...] Orientation Straight 12/23/2022 2: 36 PM EDT Last Filed Vital Signs Vital Sign Reading Time Taken Comments Blood Pressure 118/84 06/09/2023 3:09 PM EST Pulse 79 06/09/2023 3:09 PM EST Temperature 36.7 ??C (98 ??F) 01/10/2019 12:04 PM EDT Respiratory Rate 18 05/30/2011 4:12 PM EST Oxygen Saturation 98% 01/10/2019 12:04 PM EDT Inhaled Oxygen Concentration - - Weight 92.6 kg (204 lb 3.2 oz) 06/09/2023 3:09 P M EST Height 160 cm (5' 3 ) 06/09/2023 3:09 PM EST Body Mass Index 36.17 06/09/2023 3:09 PM EST Plan of Treatment Upcoming Encounters Date Type Department Care Team (Latest Contact Info) Description 11/04/2024 1:20 PM EDT Consult (Initial) [facility] Plastic & Reconstructive Surgery [address] [facility] [address] [place] [address] Geoffrey Fairchild MD [address] [address] I have what I believe I 11/08/2024 2:05 PM EDT CPE - Comprehensive Physical Exam [facility] [address] [place] [phone] Rachel Kirby NP [address] [place] [address] CPE, HCC 03/14/2025 3:00 PM EDT Office Visit [facility]. Optometry [address] [place] [phone] Juanjose Allen, JERONIMO [address] [place] [address] est pt exam annual nodm nocl aodv aoir. elig 03/14/2025, 06/14mos EM $0 cp Health Maintenance Due Date Last Done Comments Pneumococcal (1 of 2 - PCV) 2003 COVID-19 Vaccine (2 - 2023- season) 2024 01/27/2021 Influenza (#1) 2024 03/03/2021, 12/2019, 02/07/2011 Mammogram/Breast Imaging 2024 Pap Smear 06/12/2028 06/12/2023, 05/22, 05/14/2008, Additional history exists DTaP/Tdap/Td (5 - Td or Tdap) 03/01/2034 03/01/2024, 05/04/2018, 06/23/2008, Additional history exists Zoster (Shingrix) (1 of 2) 2034 PPD Discontinued 06/26/2012 EKG Discontinued 11/15/2018 Eye/Retina Exam Discontinued 03/13/2023, 02/20, 03/13/2023, Additional history exists Physical Discontinued 06/09/2023, 02/19, 06/04/2019, Additional history exists HPV Testing Discontinued 06/12/2023 Chest Imaging Discontinued 10/13/2023, 10/21, 06/23/2008 Hepatitis C Screening Completed 03/01/2024 , 03/01/2024, 03/01/2024, Additional history exists LDL Cholesterol Discontinued 05/16/2024, 05/22, 03/03/2021, Additional history exists HPV Vaccine Aged Out No longer eligi ble based on patient's age to complete this topic Hep A Aged Out No longer eligi ble based on patient's age to complete this topic Hib Aged Out No longer eligi ble based on patient's age to complete this topic Meningococcal ACWY Aged Out No longer eligible based on patient's age to complete this topic Goals Goal Patient Goal Type Associated Problems [...] at . Any insurance accepted. Quit smoking resources-http://Chartboost.org Procedures * Due to [place] state law, this organization might not be sharing negative HIV tests. Procedure Name Priority Date/Time Associated Diagnosis Comments METHICILLIN RESISTANT STAPHYLOCOCCUS AUREUS (MRSA) CULTURE SCREEN Routine 09/05/2024 1:33 PM EDT DRUG SCREEN, URINE METHADONE/FENTANYL (REFLEX ONLY) - [facility] ONLY Routine 08/30/2024 8:25 PM EDT DRUG SCREEN, URINE (ED-NO REFLEX) - [facility] ONLY Routine 08/30/2024 8:25 PM EDT HCG QUALITATIVE, URINE Routine 8:25 PM EDT URINALYSIS W/REFLEX TO MICROSCOPIC & CULTURE Routine 08/30/2024 8:25 PM EDT MICROSCOPIC URINALYSIS ONLY Routine 08/30/2024 8:25 PM EDT ETHANOL Routine 08/30/2024 8:14 PM EDT COMPREHENSIVE METABOLIC PANEL Routine 08/30/2024 8:14 PM EDT CBC AUTO DIFFERENTIAL Routine 08/30/2024 8:14 PM EDT RAPID COVID-19 FOR SURVEILLANCE - [facility] ONLY Routine 08/30/2024 5:24 PM EDT LIPID PANEL W/REFLEX TO DIRECT LDL Routine 05/16/2024 6:41 AM EST HEPATITIS C RNA, QUANTITATIVE, PCR Routine 03/01/2024 3:21 AM EDT THINPREP TIS PAP, HPV MRNA E6/E7 RFX HPV 16,18/45, CT/NG Routine 06/12/2023 8:48 AM EST Screening for malignant neoplasm of cervix EKG 11/15/2018 XRAY CHEST 2 VIEWS PA & LAT 11/14/2018 from Last 3 Months or Most Recently Relevant to Health Maintenance Results * Due to [place] state law, this organization might not be sharing negative HIV tests. * (ABNORMAL) METHICILLIN RESISTANT STAPHYLOCOCCUS AUREUS (MRSA) CULTURE SCREEN (09/05/2024 1:33 PM EDT) Methicillin Resistant Staphylococcus Aureus Screen METHICILLIN RESISTANT STAPHYLOCOCCUS AUREUS (MRSA)(A) [facility] Comment:Few Methicillin resi stant Staphylococcus aureus (MRSA) 09/05/2024 1:33 PM EDT us Unknown Provider [facility] LABORATORY Final Resu lt [facility] [employer] [address] [place] [address] * (ABNORMAL) DRUG SCREEN, URINE METHADONE/FENTANYL (REFLEX ONLY) - [facility] ONLY (08/30/2024 8:25 PM EDT) FENTANYL SCREEN, URINE Positive( A) Negative [facility] Comment: METHOD SENSITIVITY:FENTANYL POSITIVE IF >/=1 NG/ML NOT A CONFIRMATORY TEST --FOR MEDICAL PURPOSES ONLY-- METHADONE METABOLITE SCREEN, URINE Positive( A) Negative [facility] Comment: METHOD SENSITIVITY:METHADONE METABOLITE POSITIVE IF >/=100 ng/mL NOT A CONFIRMATORY TEST --FOR MEDICAL PURPOSES ONLY-- 08/30/2024 8:25 PM EDT us Unknown Provider [facility] LABORATORY Final Resu lt Performing Organization Address City/[facility] de Phone Number [facility] [employer] [address] [place] [address] * (ABNORMAL) DRUG SCREEN, URINE (ED-NO REFLEX) - [facility] ONLY (08/30/2024 8:25 PM EDT) OPIATE SCREEN, URINE Negative Negative [email or web address] Comment: METHOD SENSITIVITY:OPIATES POSITIVE IF > 300 NG/ML NOT A CONFIRMATORY TEST --FOR MEDICAL PURPOSES ONLY-- BARBITURATE SCREEN, URINE Positive(A) Negative [email or web address] Comment: METHOD SENSITIVITY:BARBITURATES POSITIVE IF >/=200 NG/ML NOT A CONFIRMATORY TEST --FOR MEDICAL PURPOSES ONLY-- AMPHETAMINE SCEEN, URINE Positive(A) Negative [email or web address] Comment: METHOD SENSITIVITY:AMPHETAMINES POSITIVE IF >/=1000 NG/ML NOT A CONFIRMATORY TEST --FOR MEDICAL PURPOSES ONLY-- BENZODIAZEPINE SCREEN, URINE Positive(A) Negative [email or web address] Comment: METHOD SENSITIVITY:BENZODIAZEPINES POS IF >/=1OO NG/ML NOT A CONFIRMATORY TEST --FOR MEDICAL PURPOSES ONLY-- COCAINE SCREEN, URINE Positive(A) Negative [email or web address] Comment: METHOD SENSITIVITY:COCAINE POSITIVE IF >/=300 NG/ML NOT A CONFIRMATORY TEST --FOR MEDICAL PURPOSES ONLY-- CANNABINOID SCREEN, URINE Negative Negative [email or web address] Comment: METHOD SENSITIVITY:THC POS IF >/= 50 NG/ML NOT A CONFIRMATORY TEST --FOR MEDICAL PURPOSES ONLY-- OXYCODONE SCREEN, URINE Negative Negative [email or web address] Comment: METHOD SENSITIVITY:OXYCODONE POSITIVE IF >300 ng/mL NOT A CONFIRMATORY TEST --FOR MEDICAL PURPOSES ONLY-- METHADONE SCREEN, URINE Positive(A) Negative [facility] Comment: METHOD SENSITIVITY:METHADONE POSITIVE IF >/=300 ng/mL NOT A CONFIRMATORY TEST --FOR MEDICAL PURPOSES ONLY-- 08/30/2024 8:25 PM EDT us Unknown Provider [facility] LABORATORY Final Resu lt [facility] [employer] [address] [place] [address] * HCG QUALITATIVE, URINE (08/30/2024 8:25 PM EDT) HCG, Qualitative Negative [facility] Comment:hCG may be negative in early . Suggest repeat testing in 2-4 days if clinically indicated. The results of this test should be interpreted with the patient's clinical presentation. 08/30/2024 8:25 PM EDT us Unknown Provider [facility] LABORATORY Final Resu lt Performing Organization Address [facility] Co de Phone Number [facility] [employer] [address] [place] [phone] * (ABNORMAL) URINALYSIS W/REFLEX TO MICROSCOPIC & CULTURE (08/30/2024 8:25 PM EDT) Color (Urine) Dark Yellow Yellow [facility] Clarity (Urine) Cloudy(A) Clear [facility] Specific gravity (Urine) >=1.030 1.005 - 1.030 [facility] pH (Urine) 5.5 5.0 - 8.0 [facility] Protein (Urine) 30(A) Negative mg/dL [facility] Glucose (Urine) Negative Negative mg/dL [facility] Ketones (Urine) Negative Negative mg/dL [facility] Bilirubin (Urine) Negative Negative [facility] Hemoglobin (Urine) Negative Negative [facility] Nitrite (Urine) Negative Negative [facility] Urobilinogen (Urine) 1.0 0.2 - 1.0 E.U./dL [facility] Leukocyte esterase (Urine) Small(A) Negative [facility] 08/30/2024 8:25 PM EDT Narrative [facility] - 08/30/2024 8:36 PM EDT Some urinalysis results will not meet the criteria for reflex urine culture although certain urine values may be abnormal. ??Additional testing can be ordered by the provider if clinically warranted. us Unknown Provider [facility] LABORATORY Final Resu lt Performing Organization Address [facility]/ZIP Co de Phone Number [employer] [facility] [address] [place] [phone] * (ABNORMAL) MICROSCOPIC URINALYSIS ONLY (08/30/2024 8:25 PM EDT) Pathologist [facility] RBC (Urine Sed) 0-2 None Seen, 0-2 /HPF [facility] WBC (Urine) 3-5(A) None Seen, 0-2 /HPF [facility] Epithelial cells.squamous (Urine sed) 5-10 /HPF [facility] Crystals.amorph ous (Urine sed) Trace /HPF [facility] Bacteria (Urine) Trace(A) None Seen /HPF [facility] Mucus (Urine sed) Trace /HPF [facility] 08/30/2024 8:25 PM EDT us Unknown Provider [facility] LABORATORY Final Resu lt Performing Organization Address [facility] Co de Phone Number [facility] [address] [place] [phone] * (ABNORMAL) CBC AUTO DIFFERENTIAL (08/30/2024 8:14 PM EDT) Pathologist [facility] WBC 7.9 4.8 - 10.8 10*3/uL [facility] RBC 3.71(L) 4.20 - 5.40 10*6/uL [facility] Hemoglobin 11.0(L) 11.7 - 15.5 g/dL [facility] Hematocrit 33.1(L) 35.7 - 45.8 % [facility] MCV 89.2 81.0 - 99.0 fL [facility] MCH 29.6 26.0 - 34.0 pg [facility] MCHC 33.2 31.0 - 36.0 g/dL [facility] RDW 12.7 12.0 - 15.0 % [facility] RDW STANDARD DEVIATION 41.5 36.4 - 46.3 fL [facility] PLT 297 140 - 440 10*3/uL [facility] Platelet mean volume 10.1 9.4 - 12.3 fL [facility] Neutrophils % 55.1 50.0 - 75.0 % [facility] Granulocytes.billy ture/100 leukocytes 0.1 0.0 - 0.9 % [facility] Lymphocytes % 34.1 20.0 - 44.0 % [facility] Monocytes % 5.8 0.0 - 14.0 % [facility] Eosinophils % 4.4 0.0 - 5.0 % [facility] Basophils % 0.5 0.0 - 2.0 % [facility] Neutrophils # 4.33 1.80 - 7.70 10*3/uL [facility] Immature Granulocytes # <0.03 0.00 - 0.03 10*3/uL [facility] Lymphocytes # 2.70 1.00 - 4.75 10*3/uL [facility] Monocytes # 0.50 0.00 - 0.60 10*3/uL [facility] Eosinophils # 0.40 0.00 - 0.80 10*3/uL [facility] Basophils # <0.03 0.00 - 0.20 10*3/uL [facility] 08/30/2024 8:14 PM EDT us Unknown Provider [facility] LABORATORY Final Resu lt Performing Organization Address City/[facility]/ZIP Co de Phone Number [facility] [employer] [address] [place] [address] * ETHANOL (08/30/2024 8:14 PM EDT) Ethanol <10 mg/dL [facility] 08/30/2024 8:14 PM EDT us Unknown Provider [facility] LABORATORY Final Resu lt [facility] [employer] [address] [place] [address] * (ABNORMAL) COMPREHENSIVE METABOLIC PANEL (08/30/2024 8:14 PM EDT) Sodium 139 136 - 145 mmol/L [facility] Potassium 3.6 3.5 - 5.1 mmol/L [facility] Chloride 103 98 - 109 mmol/L [facility] Carbon dioxide 26 22 - 32 mmol/L [facility] Anion gap 14 >=0 [facility] Glucose 97 60 - 99 mg/dL [facility] Creatinine 0.66 0.50 - 1.12 mg/dL [facility] Calcium 9.2 8.4 - 10.4 mg/dL [facility] Protein Total (Serum) 7.4 6.6 - 8.7 g/dL [facility] Albumin 4.1 3.5 - 5.0 g/dL [facility] Bilirubin Total 0.3 0.2 - 1.0 mg/dL [facility] Alkaline phosphatase 134(H) 40 - 129 U/L [facility] AST (SGOT) 49(H) 0 - 33 U/L [facility] ALT (SGPT) 65(H) <=33 U/L [facility] Urea Nitrogen Blood (BUN) 28(H) 6 - 20 mg/dL [facility] EGFR >90 >=60 mL/min/1.7 3m2 [facility] Comment: The estimated glomerular filtration rate (eGFR) is calculated using a new formula developed by the NKF-ASN task force to eliminate race-based correction factors. The new formula uses serum/plasma creatinine, age, and gender to determine eGFR. A value below 60mls/min might indicate kidney disease and will be flagged. For additional information, see Rodriguez et al, Am J Kidney Dis. 2021;79(2):268-288, A Unifying Approach for GFR estimation: Recommendations of the NKF-ASN Task Force on Reassessing the Inclusion of Race in Diagnosing Kidney Disease . GLOBULIN, TOTAL 3.3 2.1 - 4.2 g/dL [facility] A/G RATIO 1.2(L) 1.5 - 3.0 [facility] 08/30/2024 8:14 PM EDT us Unknown Provider [facility] LABORATORY Final Resu lt [facility] [employer] [address] [place] [address] * RAPID COVID-19 FOR SURVEILLANCE - [facility] ONLY (08/30/2024 5:24 PM EDT) SARS-COV-2 RNA Not Detected Not Detected [facility] 08/30/2024 5:24 PM EDT Narrative [facility] - 08/30/2024 6:00 PM EDT Methodology: The [employer] GeneXpert CoV-2 assay is For Use Under an Emergency Use Authorization (EUA) Only with [employer]. The CoV-2 assay is a rapid, real-time RT- PCR assay intended for the qualitative detection of RNA from SARS-CoV-2 in specimens collected from individuals suspected of a respiratory viral infection, by their healthcare provider. A positive test result for SARS-CoV-2 indicates that RNA from that virus was detected. A negative test result indicates that RNA virus was not present in the specimen above the limit of detection. Therefore, a negative result does not rule out SARS-CoV-2 infection and should not be used as the sole basis for treatment or other patient management decisions. us Unknown Provider [facility] LABORATORY Final Resu lt [facility] [employer] [address] [place] [address] * LIPID PANEL W/REFLEX TO DIRECT LDL (05/16/2024 6:41 AM EST) Cholesterol 163 mg/dL [facility] Comment: DESIRABLE: <200 mg/dL BORDERLINE HIGH: 200-239 mg/dL HIGH: >239 mg/dL Triglyceride 167 mg/dL [facility] Comment: NORMAL: <150 mg/dL BORDERLINE HIGH: 150-199 mg/dL HIGH: 200-499 mg/dL VERY HIGH >499 mg/dL HDL Cholesterol 26 mg/dL [facility] Comment: DESIRABLE: >60 mg/dL BORDERLINE: 40-59 mg/dL UNDESIRABLE: <40 mg/dL Cholesterol.in LDL 104 mg/dL [facility] Comment: OPTIMAL: <100 mg/dL NEAR OPTIMAL: <130 mg/dL BORDERLINE HIGH: 130-159 mg/dL HIGH: 160-189 mg/dL VERY HIGH: >189 mg/dL VLDL Cholesterol 33.4 mg/dL [facility] CHOL/HDL Ratio 6.3 [facility] 05/16/2024 6:41 AM EST us Unknown Provider [facility] LABORATORY Final Resu lt Performing Organization Address City/[facility]/ZIP Co de Phone Number [email or web address] [employer] [address] [place] [address] * (ABNORMAL) HEPATITIS C RNA, QUANTITATIVE, PCR (03/01/2024 3:21 AM EDT) Hepatitis C virus RNA [id number](H ) NOT DETECTED IU/mL [facility] Hepatitis C virus RNA - Log 6.51(H) NOT DETECTED Log IU/mL [facility] Comment: For additional information, please refer to http://education.[employer]/faq/VCK17i6 (This link is being provided for informational/ educational purposes only.) 03/01/2024 3:21 AM EDT Narrative [facility] - 03/02/2024 3:17 PM EDT [facility] Received Date: Chrissy Ventura LABORATORY Final Result Performing Organization Address [facility]/ZIP Co de Phone Number [facility] [[email or web address] [employer] [address] [place] [phone] * THINPREP TIS PAP, HPV MRNA E6/E7 RFX HPV 16,18/45, CT/NG (06/12/2023 8:48 AM EST) Clinical information None given [facility] Date last menstrual period 05/08/2023 [facility] Date of previous PAP smear 05/14/2008 [facility] DIAGNOSTICS Date of previous biopsy NONE GIVEN [facility] Specimen source (Cvx/Vag) None given [facility] Statement of Adequacy (Cvx/Vag) Satisfactory for evaluation. Endocervical/segal sformation zone component present. [facility] Cytology, Pap Smear Cytology Results: Negative for intraepithelial lesion or malignancy. [facility] Cytology study comment (Cvx/Vag) This Pap test has been evaluated with computer assisted technology. [facility] Engineering Faculty Member (Cvx/Vag) EXJ, CT(ASCP) CT Screening Location: [place] [address] [facility] COMMENT SEE NOTE [facility] Comment: EXPLANATORY NOTE: The Pap is a [...] HPV MRNA E6/E7 Not Detected Not Detected [facility] Comment: Methodology: Ground Support Agent-Mediated Amplification This assay detects E6/E7 viral messenger RNA (mRNA) from 14 high-risk HPV types (16,18,31,33,35,39,45,51,52,56,58,59,66,68). Cervical sources are required for HPV testing. If a vaginal source from a patient who has had a total hysterectomy with removal of cervix was submitted, please contact the testing laboratory for alternative testing options. For additional information, please refer to http://TagCash.Spindle Research/faq/JJP400k0 (This link if provided for information/ educational purposes only.) Chlamydia trachomatis rRNA NOT DETECTED NOT DETECTED [facility] Neisseria Gonorrhoeae rRNA NOT DETECTED NOT DETECTED [facility] COMMENT SEE NOTE [facility] Comment: The analytical performance characteristics of this assay, when used to test SurePath(TM) specimens have been determined by [employer]. The modifications have not been cleared or approved by the FDA. This assay has been validated pursuant to the CLIA regulations and is used for clinical purposes. For additional information, please refer to https://TagCash.Spindle Research/faq/YNJ515 (This link is being provided for information/ educational purposes only.) 06/12/2023 8:48 AM EST 06/12/2023 11:28 PM EST Narrative Resulting Agency Comment [id number] Rachel [place] PERINATAL SOCIAL WORKER PATHOLOGY-INTERFACED Final R esult [facility] [address] [place] [address] * EKG (11/15/2018) Unk Prov [facility] CARDIOVASCULAR-NO INBAS KET RTG Final Result * XRAY CHEST 2 VIEWS PA & LAT (11/14/2018) 11/14/2018 [facility] GENERAL IMAGING- OTHER Final Result from Last 3 Months or Most Recently Relevant to Health Maintenance Insurance 365 C[employer] R[employer] ADULT EYEMED ACCESS [address] [id number] Care Teams Pipe Threader Relationship Specialty Start Date End Date Rachel Kirby NP PCP - General Internal Medicine 04/19/18
--- OUTSIDE RECORDS SUMMARY | 2024-10-04 16:38 | XMS_ITS | Encounter Summary ---
Author Organization [facility] Address [address] [place] [address] Care Team Providers Care Quarter Inspector Name Role Phone Rachel Kirby NP Primary Care Provider [facility] Unavailable U navailable [facility], [facility] Unavailabl e Unavailable Encounter Details Date Type Department Care Team (Late st Contact Info) Description 06/09/2023 Orders Only [facility] [address] [place] [address] Rachel Kirby NP [address] [place] [address] Social History Tobacco Use Types Packs/Day Years [...] / family Once a week 02/04/2022 Attend hoahaoism services Never 2021 Club Membership No 02/04/2022 [...] 11/04/2024 1:20 PM EDT Consult (Initial) [facility]astic [facility] Reconstructive Surgery [address] [address] Geoffrey Fairchild MD [address] [address] I have what I believe I 11/08/2024 2:05 PM EDT CPE - Comprehensive Physical Exam [facility] [address] [place] [phone] Rachel Kirby NP 4 [place] [address] SP MCKEON 03/14/2025 3:00 PM EDT Office Visit Debby [facility]. Optometry [address] [facility] [place] [phone] Juanjose Allen, OD 5 [place] [address] est pt exam annual nodm nocl aodv [...] at . Any insurance accepted. Quit smoking resources-[email or web address] documented as of this encounter Procedures * Due to [place] state law, this organization might not be sharing negative HIV tests. Procedure Name Priority Date/Time Associated Diagnosis Comments HEPATITIS C VIRAL RNA, QUANTITATIVE REAL-TIME PCR Routine 06/09/2023 4:14 PM EST Hepatitis C antibody positive in blood THYROID STIMULATING HORMONE (TSH) WITH FREE T4 REFLEX, SERUM Routine 06/09/2023 4:14 PM EST Screening for thyroid disorder HEMOGLOBIN A1C Routine 06/09/2023 4:14 PM EST Screening for diabetes mellitus HEPATIC FUNCTION PANEL (ALT,AST,ALK PH,BILI'S,TP,ALB) Routine 06/09/2023 4:14 PM EST Screening for lipid disorders LIPID PANEL WITH REFLEX TO DIRECT LDL Routine 06/09/2023 4:14 PM EST Screening for lipid disorders BASIC METABOLIC PANEL WITH (GFR) Routine 06/09/2023 4:14 PM EST Screening for diabetes mellitus documented in this encounter Results * Due to [place] state law, this organization might not be sharing negative HIV tests. * HEMOGLOBIN A1C (06/09/2023 4:14 PM EST) Hemoglobin A1C 5.5 <5.7 % of total Hgb [facility] [...] diagnosis of diabetes in children. According to [place] Diabetes Association (ADA) guidelines, hemoglobin A1c <7.0% represents optimal control in non- diabetic patients. Different metrics may apply to specific patient populations. Standards of Medical Care in Diabetes(ADA). Estimated Average Glucose 119 mg/dL (calc) [facility] 06/09/2023 4:14 PM EST 06/10/2023 12:07 AM EST Narrative Resulting Agency Comment [id number] Rachel Kirby NP LABORATORY Final Result Performing Organization Address City/State/[facility] Co de Phone Number [facility] [address] [place] [address] * (ABNORMAL) LIPID PANEL WITH REFLEX TO DIRECT LDL (06/09/2023 4:14 PM EST) Cholesterol 194 <200 mg/dL [facility] HDL Cholesterol 47(L) > OR = 50 mg/dL [facility] Triglyceride 117 <150 mg/dL [facility] LDL Cholesterol 125(H) mg/dL (calc) [facility] Comment: Reference range: <100 Desirable range <100 mg/dL for primary prevention; ?? <70 mg/dL for patients with CHD or diabetic patients with > or = 2 CHD risk factors. LDL-C is now calculated using the Girish calculation, which is a validated novel method providing better accuracy than the Friedewald equation in the estimation of LDL-C. Dani SETHI et al. PROSPER. 2013;310(19): 8355-5111 (http://education.Edgewater Networks/faq/LEZ977) CHOL/HDL Ratio 4.1 <5.0 (calc) [facility] Cholesterol Non-HDL 147(H) <130 mg/dL (calc) [facility] Comment: For patients with diabetes plus 1 major ASCVD risk factor, treating to a non-HDL-C goal of <100 mg/dL (LDL-C of <70 mg/dL) is considered a therapeutic option. 06/09/2023 4:14 PM EST 06/10/2023 12:07 AM EST Narrative Resulting Agency Comment [id number] [facility] LABORATORY Final Result [facility] [address] [id number] * THYROID STIMULATING HORMONE (TSH) WITH FREE T4 REFLEX, SERUM (06/09/2023 4:14 PM EST) TSH 2.05 mIU/L [facility] Comment: ?Reference Range ?> or = 20 Years ??0.40-4.50 ? Ranges ?First trimester ?0.26-2.66 ?Second trimester ?? 0.55-2.73 ?Third trimester ?0.43-2.91 06/09/2023 4:14 PM EST 06/10/2023 12:07 AM EST Narrative Resulting Agency Comment [id number] [facility] LABORATORY Final Result Performing Organization Address [facility] de Phone Number [facility] [address] [place] [address] * HEPATIC FUNCTION PANEL (ALT,AST,ALK PH,BILI'S,TP,ALB) (06/09/2023 4:14 PM EST) Pathologist [facility] Protein Total (Serum) 7.4 6.1 - 8.1 g/dL [facility] Albumin 4.3 3.6 - 5.1 g/dL [facility] Globulin 3.1 1.9 - 3.7 g/dL (calc) [facility] Albumin/Globulin 1.4 1.0 - 2.5 (calc) [facility] Bilirubin Total 0.3 0.2 - 1.2 mg/dL [facility] Bilirubin Direct 0.1 < OR = 0.2 mg/dL [facility] Bilirubin Indirect 0.2 0.2 - 1.2 mg/dL (calc) [facility] Alkaline phosphatase 90 31 - 125 U/L [facility] AST (SGOT) 18 10 - 30 U/L [facility] ALT (SGPT) 21 6 - 29 U/L [facility] 06/09/2023 4:14 PM EST 06/10/2023 12:07 AM EST Narrative Resulting Agency Comment [id number] [facility] LABORATORY Final Result Performing Organization Address [facility] de Phone Number [facility] [address] [place] [address] * BASIC METABOLIC PANEL WITH (GFR) (06/09/2023 4:14 PM EST) Pathologist [facility] Glucose 78 65 - 99 mg/dL [facility] Comment:Fasting reference in terval Urea Nitrogen Blood (BUN) 17 7 - 25 mg/dL [facility] Creatinine 0.77 0.50 - 0.97 mg/dL [facility] EGFR 101 > OR = 60 mL/min/1. 73m2 [facility] BUN/Creatinine Ratio SEE NOTE: 6 - (calc) [facility] Comment: ?? Not Reported: BUN and Creatinine are within ?? reference range. Sodium 140 135 - 146 mmol/L [facility] Potassium 4.6 3.5 - 5.3 mmol/L [facility] Chloride 103 98 - 110 mmol/L [facility] Carbon dioxide 30 20 - 32 mmol/L [facility] Calcium 9.8 8.6 - 10.2 mg/dL [facility] 06/09/2023 4:14 PM EST 06/10/2023 12:07 AM EST Narrative [facility] - 06/10/2023 4:27 AM EST Please note that this estimated [...] needs for GFR calculation. Resulting Agency Comment [id number] [facility] LABORATORY Final Result Performing Organization Address [facility] de Phone Number [facility] [address] [place] [address] * (ABNORMAL) HEPATITIS C VIRAL RNA, QUANTITATIVE REAL-TIME PCR (06/09/2023 4:14 PM EST) Hepatitis C virus RNA [id number]( H) NOT DETECTED IU/mL [facility] Hepatitis C virus RNA - Log 6.81(H) NOT DETECTED Log IU/mL [facility] Comment: This test was performed using Real-Time Polymerase Chain Reaction. Reportable Range: 15 IU/mL to 100,000,000 IU/mL (1.18 Log IU/mL to 8.00 Log IU/mL). The analytical performance characteristics of this assay have been determined by [employer] The modifications have not been cleared or approved by the FDA. This assay has been validated pursuant to the CLIA regulations and is used for clinical purposes. ?? For more information on this test, go to: http://education.Tidal Wave [employer]ional Event [employer] Partnership/faq/RGP04q2 (This link is being provided for informational/ educational purposes only.) 06/09/2023 4:14 PM EST 06/10/2023 12:07 AM EST Narrative Resulting Agency Comment [id number] [facility] LABORATORY Final Result Performing Organization Address [facility] Co de Phone Number [facility] [address] [place] [address] documented in this encounter Visit Diagnoses Diagnosis Hepatitis C antibody positive in blood Screening for diabetes mellitus Screening for lipid disorders Screening for thyroid disorder documented in this encounter Care Teams Quarter Inspector Relationship Specialty Start Date End Date Rachel Kirby NP PCP - General Internal Medicine 04/19/18 Micah Chiang [facility] Health Assistants 02/19/23 08/20/23 [facility] Health Assistants 11/20/23 06/21/24 documented as of this encounter
--- OUTSIDE RECORDS SUMMARY | 2024-10-04 16:38 | XMS_ITS | Encounter Summary ---
Author Organization [facility] Address [address] [place] [address] Care Team Providers Care Leasing Professional Name Role Phone Berta Mcintosh MD Primary Care Provider Yasmani Cook MD Primary Care Provider [phone] Unknown Pcp, Non g Primary Care Provider Unava ilYasmani Roberts MD Primary Care Provider Yasmani Cook MD Primary Care Provider [phone] EnglishRachel NP Primary Care Provider [phone] [facility] Unavailable Unavai [facility], [facility] Unavailable [facility], [facility] Unavailabl e Unavailable Reason for Visit * Reason Comments E-prescribing Refill Request ACETAMINOPH [id number] Encounter Details Date Type Department Care Team (Late st Contact Info) Description 09/15/[address] [facility] [address] [place] [phone] Berta Mcintosh MD [facility] [address] [place] [id number] E-prescribing Refill Request ([id number] ) Social History Tobacco Use Types Packs/Day Years [...] 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 Last time she said she did not need it Please F/U Thank you * Telephone Encounter - Rica Lawson - 09/16/2011 9:03 AM EDT E-prescribed medication renewal request(s) for Janet Scott 26 y.o. female received from pharmacy. Entered this pharmacy as preferred pharmacy for patient. Any special requests or concerns?- none Last CPE with this specialty: 05/30/2011 Last OV with this specialty: 05/30/2011 Next OV: No future appointments. Pertinent lab results: No labs suggested for any medication orders signed or pended in this encounter. Refresh if any orders changed. Allergies: Review of patient's allergies indicates no known allergies. BP Readings from Last 1 Encounters: 05/30/11 110/70 Patient Active Problem List Diagnoses Date Noted ??? Hx of substance abuse [305.90FD] 05/31/2011 ??? Depression with anxiety [300.4AZ] 02/07/2011 Recommend counseling. Sertraline daily. Diazepam prn. ??? IBS (irritable bowel syndrome) [564.1W] 02/07/2011 Sertraline daily. ??? Tension headache [307.81N] 04/22/2008 Has a headache daily. Taking Fioricet prn when it is 'really bad'. ??? Tobacco abuse [305.1BF] 04/22/2008 Smokes 5 cigarettes daily. ??? Change in skin moles [216.9PD] 04/22/2008 ??? Hearing Loss [389.9AB] 04/16/2008 03/05/08 Dr. Blanchard ENT On examination, canals are clear. Her drum looks fine. She has slight retraction of the left side. Audiogram normal. Normal tympanometry right, minor negative shifts of the left ear. Discrimination 100 percent. I reassured her. She can follow p.r.n. documented in this encounter Plan of Treatment Upcoming Encounters Date Type Department Care Team (Latest Contact Info) Description 11/04/2024 1:20 PM EDT Consult (Initial) [facility] Plastic & Reconstructive Surgery [address] [address] Geoffrey Fairchild MD 123 [facility] [address] [place] [address] I have what I believe I 11/08/2024 2:05 PM EDT CPE - Comprehensive Physical Exam [facility] [address] [place] [phone] Rachel Kirby NP [address] [place] [address] CPE, HCC 03/14/2025 3:00 PM EDT Office Visit [facility]. Optometry 5 [place] [phone] Juanjose Allen, JERONIMO [address] [place] [address] est pt exam annual nodm nocl aodv aoir. elig 03/14/2025, 06/14mos EM $0 cp documented as of this encounter Visit Diagnoses Not on filedocumented in this encounter Care Teams Leasing Professional Relationship Specialty Start Date End Date Berta Mcintosh MD [address] [address] PCP - General 04/18/11 12/30/12 Yasmani Cook MD [address] [place] [address] PCP - General Internal Medicine 12/31/12 12/29/14 Unknown Pcp, Non [facility] PCP - General 12/30/14 09/03/15 Yasmani Cook MD [address] [place] [address] PCP - General Internal Medicine 09/04/15 02/28/18 Yasmani Cook MD [address] [place] [address] PCP - General 03/01/18 04/18/18 Rachel Kirby NP PCP - General Internal Medicine 04/19/18 [facility] Health [facility]ants 07[facility]21/1908/[facility] 02/19/23 08/20/23 [facility] Health Assistants 11/20/23 06/21/24 documented as of this encounter
--- OUTSIDE RECORDS SUMMARY | 2024-10-04 16:39 | XMS_ITS | Encounter Summary ---
Author Organization [facility] Address [address] [place] [address] Care Team Providers Care Wet End Helper Name Role Phone Rachel Kirby NP Primary Care Provider [phone] Sharif Serrano MD Unavailable [phone] Berta Mcintosh MD Primary Care Provider [phone] Yasmani Cook MD Primary Care Provider Unknown Pcp, Non [facility] Primary Care Provider Unava ilable Yasmani Cook MD Primary Care Provider Yasmani Cook MD Primary Care Provider Rachel Kirby NP Primary Care Provider [phone] Care, [facility] Unavailable Unavai [facility], [facility] Unavailable U navailable [facility], [facility] Unavailabl e Unavailable Encounter Details Date Type Department Care Team (Late st Contact Info) Description 10/30/2008 Orders Only [facility] [address] [place] [address] Rachel Kirby NP [address] [place] [address] Social History Tobacco Use Types Packs/Day Years [...] 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 Optometry 5 [place] [phone] Juanjose Allen, JERONIMO [address] [place] [address] est pt exam annual nodm nocl aodv aoir. elig 03/14/2025, 06/14mos EM $0 cp documented as of this encounter Procedures * Due to [place] state law, this organization might not be sharing negative HIV tests. Procedure Name Priority Date/Time Associated Diagnosis Comments CULTURE, STREP SCREEN (GROUP A), THROAT Routine 10/30/2008 Pharyngitis documented in this encounter Results * Due to [place] state law, this organization might not be sharing negative HIV tests. * (ABNORMAL) CULTURE, STREP SCREEN (GROUP A), THROAT (10/30/2008) Result(s) SEE TEXT(A) [facility] Comment: SOURCE: THROAT MODERATE GROWTH OF BETA-HEMOLYTIC STREPTOCOCCUS, NOT GROUP A 10/30/2008 10/30/2008 8:5 7 PM EDT Rachel Kirby NP LABORATORY Final Result Performing Organization Address City/State/[facility] Co de Phone Number [facility] [address] [place] [address] documented in this encounter Visit Diagnoses Diagnosis Pharyngitis Acute pharyngitis documented in this encounter Care Teams Wet End Helper Relationship Specialty Start Date End Date Rachel Kirby NP [address] [place] [address] PCP - General 05/22/10 04/17/11 Sharif Serrano MD [address] [place] [address] PCP - Backup PCP 06/20/08 04/17/11 Berta Mcintosh MD [facility] [address] [place] [address] PCP - General 04/18/11 12/30/12 Yasmani Cook MD [address] [place] [address] PCP - General Internal Medicine 12/31/12 12/29/14 Unknown Pcp, Non [facility] PCP - General 12/30/14 09/03/15 Yasmani Cook MD [address] [place] [address] PCP - General Internal Medicine 09/04/15 02/28/18 Yasmani Cook MD [address] [place] [address] PCP - General 03/01/18 04/18/18 Rachel Kirby NP PCP - General Internal Medicine 04/19/18 [facility] Health Assistants 07/21/1908/19 [facility] 02/19/23 08/20/23 [facility] Health Assistants 11/20/23 06/21/24 documented as of this encounter
--- OUTSIDE RECORDS SUMMARY | 2024-10-04 16:39 | XMS_ITS | Encounter Summary ---
Author Organization [facility] Address [address] [place] [address] Care Team Providers Care Enamel Sprayer Name Role Phone Berta Mcintosh MD Primary Care Provider [phone] Yasmani Cook MD Primary Care Provider Unknown Pcp, Non g Primary Care Provider Unava ilYasmani Roberts MD Primary Care Provider Yasmani Cook MD Primary Care Provider [place] NP Primary Care Provider [phone] [facility] Unavailable Unavai [facility], [facility] Unavailable [facility], [facility] Unavailabl e Unavailable Reason for Visit * Reason Comments E-prescribing Refill Request Cyclobenzap rine HCl 5 Encounter Details Date Type Department Care Team (Late st Contact Info) Description 11/04/[address] [facility] [address] [place] [address] Berta Mcintosh MD [facility] [address] [place] [address] E-prescribing Refill Request (Cyclobenzaprine HCl 5) Social History Tobacco Use Types Packs/Day Years [...] 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 She can follow p.r.n. Current outpatient prescriptions ordered prior to encounter Medication Sig Dispense Refill ??? Cyclobenzaprine HCl 5 MG Tab TAKE 1 TABLET BY MOUTH 3 TIMES A DAY NEEDED FOR SPASM 90 Tab 0 ??? Sertraline HCl 100 MG OR TABS 1 by mouth daily 30 Tab 0 ??? Diazepam 5 MG OR TABS * 60 UNITS = 30 DAY SUPPLY * 60 ??? Cyclobenzaprine HCl 5 MG OR TABS * 90 UNITS = 30 DAY SUPPLY * 90 ??? LQAOWHSDTBHTG-ZUJT-QIFQJGSUGR 50-325-40 MG OR TABS * 15 UNITS = 30 DAY SUPPLY * 15 ??? Sertraline HCl 100 MG OR TABS * 30 UNITS = 30 DAY SUPPLY * 30 ??? Oxycodone-Acetaminophen 5-325 MG OR TABS * 30 UNITS = 3 DAY SUPPLY * 30 ??? Sulfamethoxazole-Trimethoprim (SULFAMETHOXAZOLE-TMP DS) 800-160 MG OR TABS * 40 UNITS = 10 DAY SUPPLY * 40 ??? OxyCODONE HCl 5 MG OR TABS * 20 UNITS = 2 DAY SUPPLY * 20 ??? Diazepam 5 MG OR TABS * 60 UNITS = 30 DAY SUPPLY * 60 ??? Sertraline HCl 100 MG OR TABS * 30 UNITS = 30 DAY SUPPLY * 30 1 ??? WEQEOGZZCYFLN-BWAL-ZEIPLYYWCY 50-325-40 MG OR TABS * 15 UNITS = 30 DAY SUPPLY * 15 ??? TraMADol HCl 50 MG OR TABS * 32 UNITS = 4 DAY SUPPLY * 32 ??? Doxycycline Hyclate 100 MG OR TABS * 22 UNITS = 11 DAY SUPPLY * 22 ??? Amoxicillin-Pot Clavulanate 875-125 MG OR TABS * 22 UNITS = 11 DAY SUPPLY * 22 ??? OxyCODONE HCl 5 MG OR TABS * 15 UNITS = 3 DAY SUPPLY * 15 ??? Cephalexin 500 MG OR CAPS * 40 UNITS = 10 DAY SUPPLY * 40 ??? Sulfamethoxazole-Trimethoprim (SULFAMETHOXAZOLE-TMP DS) 800-160 MG OR TABS * 20 UNITS = 10 DAY SUPPLY * 20 ??? Diazepam 5 MG OR TABS * 60 UNITS = 30 DAY SUPPLY * 60 ??? Sertraline HCl 100 MG OR TABS * 30 UNITS = 30 DAY SUPPLY * 30 5 ??? Sertraline HCl 50 MG OR TABS 2 TABLETS DAILY 30 Tab 1 ??? Bpexnqia-Daokjlnnl-FD 3.5-34016-6 OT SUSP * 10 UNITS = 9 DAY SUPPLY * 10 ??? DISCONTD: Cyclobenzaprine HCl 5 MG OR TABS * 90 UNITS = 30 DAY SUPPLY * 90 3 ??? Cyclobenzaprine HCl 5 MG OR TABS 1 TABLET 3 TIMES DAILY NEEDED 90 Tab 3 ??? Ibuprofen 800 MG OR TABS Take 1 tablet by mouth three times daily with food 90 Tab 5 ??? DISCONTD: Cyclobenzaprine HCl 5 MG OR TABS * 30 UNITS = 30 DAY SUPPLY * 30 ??? DISCONTD: Diazepam 5 MG OR TABS * 60 UNITS = 15 DAY SUPPLY * 60 documented in this encounter Plan of Treatment Upcoming Encounters Date Type Department Care Team (Latest Contact Info) Description 11/04/2024 1:20 PM EDT Consult (Initial) [facility] Plastic & Reconstructive Surgery [address] [address] Geoffrey Fairchild MD [address] [address] I have what I believe I 11/08/2024 2:05 PM EDT CPE - Comprehensive Physical Exam [facility] 4 [place] [phone] Rachel Kirby NP 4 [place] [address] CPE, HCC 03/14/2025 3:00 PM EDT [facility] Visit [facility] Optometry [address] [place] [phone] Juanjose Allen, OD 5 [place] [address] est pt exam annual nodm nocl aodv aoir. elig 03/14/2025, 06/14mos EM $0 cp documented as of this encounter Visit Diagnoses Not on filedocumented in this encounter Care Teams Enamel Sprayer Relationship Specialty Start Date End Date Berta Mcintosh MD [address] [address] PCP - General 04/18/11 12/30/12 Yasmani Cook MD [address] [place] [address] PCP - General Internal Medicine 12/31/12 12/29/14 Unknown Pcp, Non Rmg PCP - General 12/30/14 09/03/15 Yasmani Cook MD [address] [place] [address] PCP - General Internal Medicine 09/04/15 02/28/18 Yasmani Cook MD [address] [place] [address] PCP - General 03/01/18 04/18/18 Rachel Kirby NP PCP - General Internal Medicine 04/19/18 [facility] 07/21/1908/19 [facility] 02/19/23 08/20/23 [facility] 11/20/23 06/21/24 documented as of this encounter
--- OUTSIDE RECORDS SUMMARY | 2024-10-04 16:39 | XMS_ITS | Encounter Summary ---
Author Organization [facility] Address [address] [place] [address] Care Team Providers Care Trading Manager Name Role Phone Rachel Kirby NP Primary Care Provider Sharif Serrano MD Unavailable [phone] Berta Mcintosh MD Primary Care Provider Yasmani Cook MD Primary Care Provider Unknown Pcp, Non [facility] [place] Primary Care Provider Unava ilable Yasmani Cook MD Primary Care Provider Yasmani Cook MD Primary Care Provider Rachel Kirby NP Primary Care Provider [phone] [facility] Un[facility] Unavai [facility], 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 Optometry 5 [place] [phone] Juanjose Allen, JERONIMO 5 [place] [address] est pt exam annual nodm nocl aodv aoir. elig 03/14/2025, 06/14mos EM $0 cp documented as of this encounter Procedures * Due to [place] state law, this organization might not be sharing negative HIV tests. Procedure Name Priority Date/Time Associated Diagnosis Comments HCG (QUANTITATIVE) (CAN BE USED FOR TUMOR MARKER) Routine 08/19/2008 Chronic Daily Headache documented in this encounter Results * Due to [place] state law, this organization might not be sharing negative HIV tests. * HCG (QUANTITATIVE) (CAN BE USED FOR TUMOR MARKER) (08/19/2008) HCG, Total, Quantitative < 5 5 MIU/ML Comment: GESTATIONAL WEEKS POST LMP 0.2-1: 5-50 [...] OR APPROVED BY THE FDA OR THE ESTATE ATTORNEY OF THIS ASSAY. 08/19/2008 08/19/2008 4:4 7 PM EDT [facility] SAME DAY RESULT Final R esult documented in this encounter Visit Diagnoses Diagnosis Chronic daily headache Headache documented in this encounter Care Teams Trading Manager Relationship Specialty Start Date End Date Rachel Kirby NP 4 [place] [address] PCP - General 05/22/10 04/17/11 Sharif Serrano MD [address] [place] [address] PCP - Backup PCP 06/20/08 04/17/11 Berta Mcintosh MD [facility] [address] [place] [address] PCP - General 04/18/11 12/30/12 Yasmani Cook MD [address] [place] [address] PCP - General Internal Medicine 12/31/12 12/29/14 Unknown Pcp, Non Rmg PCP - General 12/30/14 09/03/15 Yasmani Cook MD [address] [place] [address] PCP - General Internal Medicine 09/04/15 02/28/18 Yasmani Cook MD [address] [place] [address] PCP - General 03/01/18 04/18/18 Rachel Kirby NP PCP - General Internal Medicine 04/19/18 [facility] 07/21/1908/19 [facility] 02/19/23 08/20/23 [facility] 11/20/23 06/21/24 documented as of this encounter
--- OUTSIDE RECORDS SUMMARY | 2024-10-04 16:39 | XMS_ITS | Encounter Summary ---
Author Organization [facility] Address [address] [place] [address] Care Team Providers Care Motor Vehicle Escort Driver Name Role Phone Rachel Kirby NP Primary Care Provider [phone] Sharif Serrano MD Unavailable [phone] Berta Mcintosh MD Primary Care Provider Yasmani Cook MD Primary Care Provider [phone] Unknown Pcp, Non [facility] Primary Care Provider Unava ilable Yasmani Cook MD Primary Care Provider Yasmani Cook MD Primary Care Provider Rachel Kirby NP Primary Care Provider [phone] [facility] Unavailable Unavai [facility], [facility] Unavailable U navailable [facility], [facility] Unavailabl e Unavailable Encounter Details Date Type Department Care Team (Late st Contact Info) Description 07/01/2008 Orders Only [facility] [address] [place] [address] Rachel Kirby NP 4 [place] [address] Social History Tobacco Use Types Packs/Day Years [...] 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 Optometry 5 [place] [phone] Juanjose Allen, JERONIMO 5 [place] [address] est pt exam annual nodm nocl aodv aoir. elig 03/14/2025, 06/14mos EM $0 cp documented as of this encounter Procedures * Due to [place] state law, this organization might not be sharing negative HIV tests. Procedure Name Priority Date/Time Associated Diagnosis Comments CULTURE, STREP SCREEN (GROUP A), THROAT Routine 07/01/2008 Acute Pharyngitis documented in this encounter Results * Due to [place] state law, this organization might not be sharing negative HIV tests. * CULTURE, STREP SCREEN (GROUP A), THROAT (07/01/2008) Result(s) SEE TEXT Comment: SOURCE: THROAT NO GROUP A STREPTOCOCCI ISOLATED 07/01/2008 07/01/2008 7:3 8 PM EST Rachel Kirby NP LABORATORY Final Result documented in this encounter Visit Diagnoses Diagnosis Acute pharyngitis documented in this encounter Care Teams Motor Vehicle Escort Driver Relationship Specialty Start Date End Date Rachel Kirby NP [address] [place] [address] PCP - General 05/22/10 04/17/11 Sharif Serrano MD [address] [place] [address] PCP - Backup PCP 06/20/08 04/17/11 Berta Mcintosh MD [facility] [address] [place] [address] PCP - General 04/18/11 12/30/12 Yasmani Cook MD [address] [place] [address] PCP - General Internal Medicine 12/31/12 12/29/14 Unknown Pcp, Non Rmg PCP - General 12/30/14 09/03/15 Yasmani Cook MD [address] [place] [address] PCP - General Internal Medicine 09/04/15 02/28/18 Yasmani Cook MD [address] [place] [address] PCP - General 03/01/18 04/18/18 Rachel Kirby NP PCP - General Internal Medicine 04/19/18 [facility] 07/21/1908/19 [facility] 02/19/23 08/20/23 [facility] 11/20/23 06/21/24 documented as of this encounter
--- OUTSIDE RECORDS SUMMARY | 2024-10-04 16:39 | XMS_ITS | Encounter Summary ---
Author Organization [facility] Address [address] [place] [address] Care Team Providers Care Mri Technologist Name Role Phone Rachel Kirby NP Primary Care Provider Rachel Kirby CONSULTING UTILITY FORESTER Primary Care Provider Ginger Diallo MD Primary Care Provider [phone] Sharif Serrano MD Unavailable [phone] Berta Mcintosh MD Primary Care Provider [phone] Yasmani Cook MD Primary Care Provider [phone] Unknown Pcp, Non g Primary Care Provider Unava ilable Yasmani Cook MD Primary Care Provider [phone] Yasmani Cook MD Primary Care Provider [phone] Rachel Kirby CONSULTING UTILITY FORESTER Primary Care Provider [phone] [facility] Unavailable Unavai [facility], [facility] Unavailabl e Unavailable Encounter Details Date Type Department Care Team (Late st Contact Info) Description 04/10/2008 Orders Only [facility] [address] [place] [address] Rachel Kirby NP 4 [place] [address] Social History Tobacco Use Types Packs/Day Years Used Date Smoking Tobacco: Passive Smo ke Exposure - Never Smoker Cigarettes Comments:about 5 cigarettes a day Alcohol Use Standard Drinks/Week Comments No 0 (1 standard drink = 0.6 oz pur e alcohol) Comments Yes Sex and Gender Information Value Date Recorded Sex Assigned at Female 12/23/2022 2:36 PM EDT Legal Sex Female 8:58 PM EDT Gender Identity Female 12/23/2022 2:36 PM EDT Sexual Orientation Straight 12/23/2022 2: 36 PM EDT documented as of this encounter Plan of Treatment Upcoming Encounters Date Type Department Care Team (Latest Contact Info) Description 11/04/2024 1:20 PM EDT Consult (Initial) [facility] Plastic & Reconstructive Surgery [address] [address] Geoffrey Fairchild MD [address] [address] I have what I believe I 11/08/2024 2:05 PM EDT CPE - Comprehensive Physical Exam [facility] 4 [place] [address] Rachel Kirby NP 4 [place] [address] CPE, HCC 03/14/2025 3:00 PM EDT Office Visit [facility]. Optometry [address] [place] [phone] Juanjose Allen OD 5 [place] [address] est pt exam annual nodm nocl aodv aoir. elig 03/14/2025, 06/14mos EM $0 cp documented as of this encounter Procedures * Due to [place] state law, this organization might not be sharing negative HIV tests. Procedure Name Priority Date/Time Associated Diagnosis Comments CULTURE, STREP SCREEN (GROUP A), THROAT Routine 04/10/2008 Acute Pharyngitis documented in this encounter Results * Due to [facility] law, this organization might not be sharing negative HIV tests. * CULTURE, STREP SCREEN (GROUP A), THROAT (04/10/2008) Result(s) SEE TEXT Comment: SOURCE: THROAT NO GROUP A STREPTOCOCCI ISOLATED 04/10/2008 04/10/2008 11: 16 PM EST Rachel Kirby CONSULTING UTILITY FORESTER LABORATORY Final Result documented in this encounter Visit Diagnoses Diagnosis Acute pharyngitis documented in this encounter Care Teams Mri Technologist Relationship Specialty Start Date End Date Rachel Kirby NP 4 [place] [address] PCP - General 05/22/10 04/17/11 Rachel Kirby NP [address] [place] [address] PCP - General 06/19/08 06/19/08 Ginger Diallo MD [address] [place] [address] PCP - General 06/11/07 06/18/08 Sharif Serrano MD [address] [place] [address] PCP - Backup PCP 06/20/08 04/17/11 Berta Mcintosh MD [facility] Care [address] [place] [address] PCP - General 04/18/11 12/30/12 Yasmani Cook MD [address] [place] [address] PCP - General Internal Medicine 12/31/12 12/29/14 Unknown Pcp, Non Rmg PCP - General 12/30/14 09/03/15 Yasmani Cook MD [address] [place] [address] PCP - General Internal Medicine 09/04/15 02/28/18 Yasmani Cook MD [address] [place] [address] PCP - General 03/01/18 04/18/18 Rachel Kirby NP PCP - General Internal Medicine 04/19/18 [facility] 07/21/1908/19 [facility] 02/19/23 08/20/23 [facility] 11/20/23 06/21/24 documented as of this encounter
--- OUTSIDE RECORDS SUMMARY | 2024-10-04 16:39 | XMS_ITS | Encounter Summary ---
Author Organization [facility] Address [address] [place] [address] Care Team Providers Care Bolt Labeler Name Role Phone Berta Mcintosh MD Primary Care Provider Yasmani Cook MD Primary Care Provider Unknown Pcp, Non g Primary Care Provider Unava ilYasmani Roberts MD Primary Care Provider Yasmani Cook MD Primary Care Provider [place]-CreeRachel darby NP Primary Care Provider [facility] Unavailable Unavai [facility] Unavailable U navailable [facility], [facility] Unavailabl e Unavailable Encounter Details Date Type Department Care Team (Late st Contact Info) Description 07/02/2012 Orders Only [facility] [address] [place] [phone] Berta Mcintosh MD [facility] [address] [place] [address] Social History Tobacco Use Types Packs/Day Years [...] 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 Not on file documented as of this encounter Progress Notes * Berta Mcintosh MD - 07/04/2012 1:43 PM ESTQuick Note: Letter Sent documented in this encounter Plan of Treatment Upcoming Encounters Date Type Department Care Team (Latest Contact Info) Description 11/04/2024 1:20 PM EDT Consult (Initial) [facility] Plastic & Reconstructive Surgery [address] [address] Geoffrey Fairchild MD [address] [address] I have what I believe I 11/08/2024 2:05 PM EDT CPE - Comprehensive Physical Exam [facility] 4 [place] [phone] Rachel Kirby NP 4 [place] [address] CPE, HCC 03/14/2025 3:00 PM EDT Office Visit [facility]. Optometry [address] [place] [phone] Juanjose Allen OD [address] [place] [address] est pt exam annual nodm nocl aodv aoir. elig 03/14/2025, 06/14mos EM $0 cp documented as of this encounter Procedures * Due to [place] state law, this organization might not be sharing negative HIV tests. Procedure Name Priority Date/Time Associated Diagnosis Comments QUANTIFERON(R)-TB GOLD Routine 07/02/2012 3:21 PM EST Screening examination for pulmonary tuberculosis documented in this encounter Results * Due to [place] [employer] law, this organization might not be sharing negative HIV tests. * QUANTIFERON(R)-TB GOLD (07/02/2012 3:21 PM EST) Quantiferon(R) - TB Gold NEGATIVE NEGATIVE [facility] Comment: {QUANTIFERON(R)-TB GOLD {[id number]) Negative test result. M. tuberculosis complex infection unlikely. TB1 0.04 IU/mL [facility] Comment:{NIL {[id number]) Mycobacterium tuberculosis tuberculin stimulated gamma interferon/Mitoge n stimulated gamma interferon (Blood^control) 8.30 IU/mL [facility] Comment:{MITOGEN-NIL {[id number]) Mycobacterium tuberculosis tuberculin stimulated gamma interferon^correc willa for background 0.07 IU/mL [facility] Comment: {TB-NIL {[id number]) The Nil tube value is used to determine if the patient has a preexisting immune response which could cause a false-positive reading on the test. In order for a test to be valid, the Nil tube must have a value of less than or equal to 8.0 IU/mL. The mitogen control tube is used to assure the patient has a healthy immune status and also serves as a control for correct blood handling and incubation. It is used to detect false-negative readings. The mitogen tube must have a gamma interferon value of greater than or equal to 0.5 IU/mL higher than the value of the Nil tube. The TB antigen tube is coated with the M. tuberculosis specific antigens. For a test to be considered positive, the TB antigen tube value minus the Nil tube value must be greater than or equal to 0.35 IU/mL. For additional information, please refer to http://education.[employer]arena.Visual Realm/faq/QFT (This link is being provided for informational/ educational purposes only.) 07/02/2012 3:21 PM EST 07/02/2012 9:50 PM EST Narrative Resulting Agency Comment [id number] Berta Mcintosh MD LABORATORY Final Result [facility] [address] [place] [address] documented in this encounter Visit Diagnoses Diagnosis Screening examination for pulmonary tuberculosis documented in this encounter Care Teams Bolt Labeler Relationship Specialty Start Date End Date Berta Mcintosh MD [address] [address] PCP - General 04/18/11 12/30/12 Yasmani Cook MD [address] [place] [address] PCP - General Internal Medicine 12/31/12 12/29/14 Unknown Pcp, Non Rmg PCP - General 12/30/14 09/03/15 Yasmani Cook MD [address] [place] [address] PCP - General Internal Medicine 09/04/15 02/28/18 Yasmani Cook MD [address] [place] [address] PCP - General 03/01/18 04/18/18 Chippewa-CreeRachel gardner NP PCP - General Internal Medicine 04/19/18 [facility] [place] [facility] 07/21/1908/19 [facility] 02/19/23 08[facility]20[facility] 11/20/23 06/21/24 documented as of this encounter
--- OUTSIDE RECORDS SUMMARY | 2024-10-04 16:39 | XMS_ITS | Encounter Summary ---
Author Organization [facility] Address [address] [place] [address] Care Team Providers Care Consumer Loan Manager Name Role Phone Rachel Kirby NP Primary Care Provider [phone] Sharif Serrano MD Unavailable [phone] Berta Mcintosh MD Primary Care Provider Yasmani Cook MD Primary Care Provider Unknown Pcp, Non [facility] [place] [place] Primary Care Provider Unava ilable Yasmani Cook MD Primary Care Provider Yasmani Cook MD Primary Care Provider [phone] Rachel Kirby NP Primary Care Provider [phone] Care, [facility] Unavailable Unavai [facility], [facility] Unavailable U navailable [facility], [facility] Unavailabl e Unavailable Encounter Details Date Type Department Care Team (Late st Contact Info) Description 08/09/2010 Orders Only [facility] [address] [place] [phone] Rachel Kirby NP 4 [place] [address] Social History Tobacco Use Types Packs/Day Years [...] 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 Optometry 5 [place] [phone] Juanjose Allen, JERONIMO [address] [place] [address] est pt exam annual nodm nocl aodv aoir. elig 03/14/2025, 06/14mos EM $0 cp documented as of this encounter Procedures * Due to [place] state law, this organization might not be sharing negative HIV tests. Procedure Name Priority Date/Time Associated Diagnosis Comments ARTHRITIS PANEL (ESR/URICACID/RF/MILTON) Routine 08/09/2010 Arthralgia documented in this encounter Results * Due to [place] state law, this organization might not be sharing negative HIV tests. * ARTHRITIS PANEL (ESR/URICACID/RF/MILTON) (08/09/2010) ESR (ERYTHROCYTE SEDIMENTATION RATE) 11 0 - 20 MM/HR [facility] URIC ACID, SERUM 3.0 2.5 - 7.0 MG/DL [facility] RHEUMATOID FACTOR TITER 9 0 - 13 IU/ML [facility] MILTON IFA <1:40 <1:40 [facility] 08/09/2010 08/09/2010 9:5 0 PM EDT Rachel Kirby [facility] Final Result [facility] [address] [place] [address] documented in this encounter Visit Diagnoses Diagnosis Arthralgia Pain in joint, site unspecified documented in this encounter Care Teams Consumer Loan Manager Relationship Specialty Start Date End Date Rachel Kirby NP [address] [place] [address] PCP - General 05/22/10 04/17/11 Sharif Serrano MD [address] [place] [address] PCP - Backup PCP 06/20/08 04/17/11 Berta Mcintosh MD [facility] [address] [place] [address] PCP - General 04/18/11 12/30/12 Yasmani Cook MD [address] [place] [address] PCP - General Internal Medicine 12/31/12 12/29/14 Unknown Pcp, Non [facility] PCP - General 12/30/14 09/03/15 Yasmani Cook MD [address] [place] [address] PCP - General Internal Medicine 09/04/15 02/28/18 Yasmani Cook MD [address] [place] [address] PCP - General 03/01/18 04/18/18 Rachel Kirby NP PCP - General Internal Medicine 04/19/18 [facility] 07/21/1908/19 [facility] 02/19/23 08/20/23 [facility] 11/20/23 06/21/24 documented as of this encounter
--- OUTSIDE RECORDS SUMMARY | 2024-10-04 16:39 | XMS_ITS | Encounter Summary ---
Author Organization [facility] Address [address] [place] [address] Care Team Providers Care Gill Tender Name Role Phone Rachel Kirby NP Primary Care Provider Rachel Kirby RETAIL COSMETICS SALES COUNTER MANAGER Primary Care Provider Ginger Diallo MD Primary Care Provider Sharif Serrano MD Unavailable [phone] Berta Mcintosh MD Primary Care Provider Yasmani Cook MD Primary Care Provider Unknown Pcp, Non g Primary Care Provider Unava ilable Yasmani Cook MD Primary Care Provider [phone] Yasmani Cook MD Primary Care Provider [phone] Rachel Kirby RETAIL COSMETICS SALES COUNTER MANAGER Primary Care Provider [phone] [facility] Unavailable Unavai [facility], [facility] Un[facility], [facility] Unavailabl e Unavailable Encounter Details Date Type Department Care Team (Late st Contact Info) Description 04/22/2008 Orders Only [facility] 5 [address] [place] [address] Ginger Diallo MD 4 [place] [address] Social History Tobacco Use Types Packs/Day Years [...] [facility] [address] [address] Geoffrey Fairchild MD [address] [address] I have what I believe I 11/08/2024 2:05 PM EDT CPE - Comprehensive Physical Exam [facility] 4 [place] [phone] Rachel Kirby NP [address] [place] [address] CPE, HCC 03/14/2025 3:00 PM EDT Office Visit [facility]. Optometry 5 [place] [phone] Juanjose Allen OD 5 [place] [address] est pt exam annual nodm nocl aodv aoir. elig 03/14/2025, 06/14mos EM $0 cp documented as of this encounter Procedures * Due to [place] state law, this organization might not be sharing negative HIV tests. Procedure Name Priority Date/Time Associated Diagnosis Comments BASIC METABOLIC PANEL Routine 04/22/2008 Pallor CBC 5 PART DIFF Routine 04/22/2008 Pallor THYROID CASCADE Routine 04/22/2008 Pallor IRON/TIBC Routine 04/22/2008 Pallor FOLATE (FOLIC ACID) Routine 04/22/2008 Pallor FERRITIN Routine 04/22/2008 Pallor VITAMIN B12 Routine 04/22/2008 Pallor documented in this encounter Results * Due to [facility] law, this organization might not be sharing negative HIV tests. * VITAMIN B12 (04/22/2008) VITB12 258 200 - 1100 PG/ML 04/22/2008 04/22/2008 6:1 6 PM EST Ginger Diallo MD LABORATORY Final Result * IRON/TIBC (04/22/2008) IRON 87 35 - 175 UG/DL TIBC (IRON BINDING CAPACITY) 362 250 - 450 MCG/DL IRON SATURATION % 24 15 - 50 % 04/22/2008 04/22/2008 6:1 6 PM EST Ginger Diallo MD LABORATORY Final Result * FOLATE (FOLIC ACID) (04/22/2008) FOLATE 13.1 3.4 OR ABOVE NG/ML 04/22/2008 04/22/2008 6:1 6 PM EST us Ginger Diallo MD LABORATORY Final Result * FERRITIN (04/22/2008) FERRITIN 29 10 - 300 NG/ML 04/22/2008 04/22/2008 6:1 6 PM EST Ginger Diallo MD LABORATORY Final Result * THYROID CASCADE (04/22/2008) [facility] TSH, THYROTROPIN 1.87 0.40 - 4.50 UIU/ML 04/22/2008 04/22/2008 6:1 6 PM EST Ginger Diallo MD LABORATORY Final Result * CBC 5 PART DIFF (04/22/2008) [facility] WHITE BLOOD COUNT 8.2 3.8 - 10.8 THOUS/UL RBC 4.13 3.80 - 5.10 MIL/UL Hemoglobin 13.3 11.7 - 15.5 G/DL HCT (HEMATOCRIT) 39.8 35.0 - 45.0 % MCV 96.3 80.0 - 100.0 FL MCH 32.3 27.0 - 33.0 PG MCHC 33.5 32.0 - 36.0 G/DL BAND % 0 0 - 5 % NEUTROPHIL % 67 48 - 75 % LYMPHOCYTE % 28 17 - 40 % MONOCYTE % 4 0 - 14 % EOSINOPHIL % 1 0 - 5 % BASOPHIL % 0 0 - 3 % ATYPICAL LYMPHOCYTE % 0 0 - 5 % PLATELETS 300 140 - 400 THOUS/UL BANDS # 0 0 - 750 CELLS/MCL NEUTROPHILS # 5494 1500 - 7800 CELLS/MCL LYMPHOCYTES # 2296 850 - 3900 CELLS/MCL MONOCYTES # 328 200 - 950 CELLS/MCL EOSINOPHILS # 82 15 - 550 CELLS/MCL BASOPHILS # 0 0 - 200 CELLS/MCL ATYPICAL LYMPHOCYTES # 0 0 - 200 CELLS/MCL RDW 12.0 11.0 - 15.0 % MPV 10.0 7.5 - 11.5 FL 04/22/2008 04/22/2008 6:1 6 PM EST Ginger Diallo MD LAB SAME DAY RESULT Final Re sult * BASIC METABOLIC PANEL (04/22/2008) CALCIUM 9.9 8.6 - 10.2 MG/DL BUN 15 7 - 25 MG/DL CREATININE 0.70 0.50 - 1.20 MG/DL Glucose 97 65 - 99 MG/DL SODIUM 141 135 - 146 MMOL/L POTASSIUM 4.3 3.5 - 5.3 MMOL/L CHLORIDE 106 98 - 110 MMOL/L CARBON DIOXIDE 25 21 - 33 MMOL/L 04/22/2008 04/22/2008 6:1 6 PM EST us Ginger Diallo MD LAB SAME DAY RESULT Final Re sult documented in this encounter Visit Diagnoses Diagnosis Pallor documented in this encounter Care Teams Gill Tender Relationship Specialty Start Date End Date Rachel Kirby NP [address] [place] [address] PCP - General 05/22/10 04/17/11 Rachel Kirby NP [address] [place] [address] PCP - General 06/19/08 06/19/08 Ginger Diallo MD [address] [place] [address] PCP - General 06/11/07 06/18/08 Sharif Serrano MD [address] [place] [address] PCP - Backup PCP 06/20/08 04/17/11 Berta Mcintosh MD [facility] [address] [place] [address] PCP - General 04/18/11 12/30/12 Yasmani Cook MD [address] [place] [address] PCP - General Internal Medicine 12/31/12 12/29/14 Unknown Pcp, Non [facility] PCP - General 12/30/14 09/03/15 Yasmani Cook MD [address] [place] [address] PCP - General Internal Medicine 09/04/15 02/28/18 Yasmani Cook MD [address] [place] [address] PCP - General 03/01/18 04/18/18 Rachel Kirby NP PCP - General Internal Medicine 04/19/18 [facility] 07/21/1908/19 [facility] Assistants 02/19/23 08/20/23 [facility] 11/20/23 06/21/24 documented as of this encounter
--- OUTSIDE RECORDS SUMMARY | 2024-10-04 16:39 | XMS_ITS | Encounter Summary ---
Author Organization [facility] Address [address] [place] [address] Care Team Providers Care Bread Wrapping Machine Feeder Name Role Phone Rachel Kirby NP Primary Care Provider [phone] [facility] U navailable [facility], [facility] Unavailabl e Unavailable Reason for Visit * Reason Comments E-prescribing Refill Request Encounter Details Date Type Department Care Team ([facility] st Contact Info) Description 08/07/2020 Refill [facility] 4 [place] [address] Yuli Da Silva PA 4 [place] [address] E-prescribing Refill Request Social History Tobacco Use [...] encounter Miscellaneous Notes * Telephone Encounter - Twyla Alvarez - 08/19/2020 3:10 PM EDT Sent a letter * Telephone Encounter - Victoria Calhoun - 08/10/2020 3:07 PM EDT VM full #2 * Telephone Encounter - Victoria Calhoun - 08/07/2020 1:49 PM EDT VM full attempt #1 * Telephone Encounter - Rachel Kirby NP - 08/07/2020 8:55 AM EDT Please call patient rx was coming from psych and she called in April asking me to cover Has she started seeing new psych provider? Rx sent for 1 month If I need to refill med again she needs appt scheduled with me for CPE as well * Telephone Encounter - Yue Fam - 08/07/2020 8:43 AM EDT Any special requests or concerns? Due for cpe- MCM Sent HCC diagnoses are outstanding and no appointment is scheduled in primary care this year Faxed/E-prescribed medication renewal request(s) for Janetiris Romeroson 35 y.o. female received from pharmacy. Verified and Confirmed pharmacy for patient. Last CPE with this specialty: 06/04/2019 Last OV with this specialty: 06/04/2019 Next OV: No future appointments. Pertinent lab results: No labs suggested for any medication orders signed or pended in this encounter. Refresh if any orders changed. Because this patient has not had an appointment in this department specialty in the last year and does not have one scheduled in the next 30 days , limit prescription refills to a one month supply pending provider review and/or appointment scheduling. Allergies: Patient has no known allergies. BP Readings from Last 1 Encounters: 06/04/19 117/75 Patient Active Problem List Diagnosis Date Noted ??? Hx of substance abuse 05/31/2011 Previously on Methadone- completed 2015 ??? Bipolar disorder, current episode mixed, mild (HCC) 02/07/2011 Depression and anxiety Lamotrigine and duloxetine ??? IBS (irritable bowel syndrome) 02/07/2011 Improved after she stopped opiates ??? Tension headache 04/22/2008 Has frequent headaches. Tylenol or Ibuprofen prn ??? Tobacco abuse 04/22/2008 ??? Hearing loss 04/16/2008 Normal audiogram 2007 Current Outpatient Medications on File Prior to Visit Medication Sig Dispense Refill ??? QUEtiapine Fumarate (SEROquel) 25 MG tablet Take one tablet (25 mg total) by mouth at night if needed for pain PLEASE CONTACT THE OFFICE TO SCHEDULE PHYSICAL EXAM. 30 tablet 0 ??? cloNIDine HCl (CATAPRES) 0.1 MG tablet Take one tablet (0.1 mg total) by mouth 2 (two) times a day if needed (anxiety) 60 tablet 0 ??? Levonorgestrel-Ethinyl Estrad (Aviane) 0.1-20 MG-MCG per tablet Take one tablet by mouth 1 (one) time each day 28 tablet 4 documented in this encounter Plan of Treatment Upcoming Encounters Date Type Department Care Team (Latest Contact Info) Description 11/04/2024 1:20 PM EDT Consult (Initial) [facility] Plastic & Reconstructive Surgery 123 [facility] [address] [place] [address] Geoffrey Fairchild MD 123 [facility] [address] [place] [address] I have what I believe I 11/08/2024 2:05 PM EDT CPE - Comprehensive Physical Exam [facility] 4 [place] [address] Rachel Kirby NP 4 [place] [address] SP MCKEON 03/14/2025 3:00 PM EDT Office Visit [facility]. Optometry 5 [place] [phone] Juanjose Allen OD 5 [place] [address] est pt exam annual nodm nocl aodv [...] at . Any insurance accepted. Quit smoking resources-[email or web address] Science & [email or web address] [email or web address].org documented as of this encounter Visit Diagnoses Not on filedocumented in this encounter Care Teams Bread Wrapping Machine Feeder Relationship Specialty Start Date End Date Rachel Kirby NP PCP - General Internal Medicine [facility] 02/19/23 08/20/23 [facility] 11/20/23 06/21/24 documented as of this encounter
[2024-10-04] MEDS: Doxycycline Monohydrate 100 MG CAPSULE PO (16:56)
[2024-10-04] MEDS: Amoxicillin/Potassium Clav 875 MG TABLET PO (16:56)
[2024-10-04] MEDS: Acetaminophen 325 MG TABLET 975 MG PO (16:56)
[2024-10-04 17:09] VITALS: BP 115/77; PULSE 95; RESP 18; TEMP 36.7; O2SAT 98
== END 2024-10-04 17:10 | disposition home or self-care (01) ==
PROVIDERS: Physician Assistant; Emergency Provider Emergency Medicine; PCP Nurse Practitioner Acute Care
DX: R22.0 Localized swelling, mass and lump, head (principal); H00.036 Abscess of eyelid left eye, unspecified eyelid; Z03.818 Encounter for observation for suspected exposure to other biological agents ruled out; Z79.899 Other long term (current) drug therapy
CPT/HCPCS: 0241U; 36415; 80048; 80076; 85025; 85652; 86140; 99283; 99284

== ENCOUNTER 2024-10-23 09:26 | Outpatient (REF) | payer MEDICAID, SELFPAY ==
--- OUTSIDE RECORDS SUMMARY | 2024-10-23 09:49 | XMS_ITS | Encounter Summary ---
Author Organization [facility] Address [address] [place] [address] Care Team Providers Care Coal Crusher Operator Name Role Phone Rachel Kirby NP Primary Care Provider [facility] Unavailable U navailable [facility], [facility] Unavailabl e Unavailable Encounter Details Date Type Department Care Team (Late st Contact Info) Description 02/24/2021 Orders Only [facility] 4 [place] [address] Rachel Kirby NP 4 [place] [address] Social History Tobacco Use Types Packs/Day Years Used Date Smoking Tobacco: Every Day Cigarettes 1 24.4 Started: 06/04/2000 Smokeless Tobacco: Current Comments:Started at [...] 11/04/2024 1:20 PM EDT Consult (Initial) [facility] Plastic & Reconstructive Surgery 123 [facility] [address] [place] [address] Geoffrey Fairchild MD 123 [facility] [address] [place] [address] I have what I believe I 11/08/2024 2:05 PM EDT CPE - Comprehensive Physical Exam [facility] 4 [place] [address] Rachel Kirby NP 4 [place] [address] LINDA, HCC 03/14/2025 3:00 PM EDT Office Visit [facility]. Optometry 5 [place] [phone] Juanjose Allen OD [address] [place] [address] est pt exam annual nodm nocl aodv [...] at . Any insurance accepted. Quit smoking resources-[email or web address] documented as of this encounter Procedures * Due to [place] [employer] law, this organization might not be sharing negative HIV tests. Procedure Name Priority Date/Time Associated Diagnosis Comments VENIPUNCTURE Routine 02/24/2021 12:54 PM EDT Screening examination for infectious disease documented in this encounter Results * Due to [place] [employer] law, this organization might not be sharing negative HIV tests. * QUANTIFERON-TB GOLD (02/24/2021 12:54 PM EDT) Quantiferon(R)-TB Gold Plus NEGATIVE NEGATIVE [facility] Comment: Negative test result. M. tuberculosis complex infection unlikely. NIL 0.05 IU/mL [facility] MITOGEN-NIL >10.00 IU/mL [facility] [...] T-lymphocytes. For additional information, please refer to https://education.Neog[employer].Vital Energi/faq/ANI867 (This link is being provided for informational/ educational purposes only.) 02/24/2021 12:5 4 PM EDT 02/25/2021 9:58 AM EDT Narrative Resulting Agency Comment [id number] us Rachel Kirby NP LABORATORY Final Result Performing Organization Address City/State/[facility] Co de Phone Number [facility] [address] [place] [address] documented in this encounter Visit Diagnoses Diagnosis Screening examination for infectious disease Screening examination for unspecified infectious disease documented in this encounter Care Teams Coal Crusher Operator Relationship Specialty Start Date End Date Rachel Kirby NP PCP - General Internal Medicine 04/19/18 [facility] Health Assistants 02/19/23 08/20/23 [facility] 11/20/23 06/21/24 documented as of this encounter
== END 2024-10-23 09:27 | disposition home or self-care (01) ==
LOC: HO.HOSX 09:26
DX: Z13.89 Encounter for screening for other disorder (principal)

== ENCOUNTER 2024-10-29 10:26 | Emergency (ER) | payer MEDICAID, OTHER, SELFPAY ==
--- NOTE | ~2024-10-29 | XR_ITS ---
EXAMINATION: XR ELBOW, BRETT min 3V CLINICAL INFORMATION: SCREWS IN ARM, SWELLING COMPARISON: None available. TECHNIQUE: AP, lateral, and oblique views of the each elbow. FINDINGS: LEFT ELBOW: No fracture, dislocation, or suspicious bone lesion. Normal alignment. There is a surgical anchor in the left humeral head, transfixing old fracture. No acute fracture evident. Hardware appears well seated. No evidence of joint effusion. There are degenerative changes in the elbow joint to a moderate degree. Normal soft tissues. RIGHT ELBOW: No fracture, dislocation, or suspicious bone lesion. Normal alignment. No evidence of joint effusion. Joint spaces are preserved. No arthropathy evident. No soft tissue abnormality. XR/XR Elbow Brett min 3V IMPRESSION: 1. LEFT elbow demonstrating a surgical stabilization screw within the radial head. No complication or acute fracture evident. No joint effusion. No acute findings. 2. RIGHT elbow demonstrating no bony or joint abnormalities. No joint effusion. Electronically signed by: Bello Chapman MD 10/29/2024 11:45 AM EDT
--- NOTE | ~2024-10-29 | XR_ITS ---
EXAMINATION: XR FOREARM, LEFT CLINICAL INFORMATION: SCREW IN AREA, NUMBNES, SWELLING COMPARISON: None available. TECHNIQUE: AP and lateral views of the left forearm were obtained. FINDINGS: No fracture, dislocation, or suspicious bone lesion. A solitary surgical screw is seen in the left radial head, transfixing an old healed fracture. No evidence of screw loosening or complication. No evidence of elbow joint effusion. Mild to moderate degenerative arthritic changes evident in the left elbow joint. Image left wrist joint appears normal. No soft tissue abnormalities. XR/XR forearm LT 2V IMPRESSION: No acute findings left forearm. Electronically signed by: Bello Chapman MD 10/29/2024 11:47 AM EDT
[2024-10-29 10:39] VITALS: BP 199/49; PULSE 78; RESP 18; TEMP 36.2; O2SAT 97; BMI 29.2
--- NOTE | 2024-10-29 12:01 | ED.EXTPRO ---
HPI - Extremity Problem General Chief complaint: Extremity Problem Stated complaint: Sent for xray Time Seen by Provider: 10/29/24 12:01 Source: patient, RN notes reviewed and old records reviewed Mode of arrival: ambulatory History of Present Illness ED Provider: Erin Barrera PA-C HPI Narrative: 39-year-old female with past medical history of anxiety, depression, hx IVDA, MRSA, LUE fracture s/p ORIF, presenting to the ED complaining of acute on chronic left elbow pain radiating to forearm and neck x months. Reports associated paresthesias to 4th and 5th digits. Denies recent injury, trauma, fall, weakness, headache, CP/SOB. Admits was at ortho appt today however was told the doctor was not present & was unable to be seen, they recommended she come to the ED for imaging. Related Data Previous Rx's ?Medication ?Instructions ?Recorded acetaminophen 325 mg capsule 650 mg (2 x 325 mg) PO Q8H PRN 10/05/24 fever or pain #30 caps amoxicillin 875 mg-potassium 1 tab PO Q12H 7 days #14 tabs 10/05/24 clavulanate 125 mg tablet doxycycline hyclate 100 mg tablet 100 mg PO Q12H 7 days #14 tabs 10/05/24 ibuprofen 600 mg tablet 600 mg PO Q6H PRN pain #30 tabs 10/05/24 mupirocin 2 % topical ointment 1 appl topical TID #15 grams 10/05/24 acetaminophen 500 mg tablet 500 mg PO Q6H PRN fever or pain 10/29/24 (Tylenol Extra Strength) #14 tabs lidocaine 5 % topical patch 1 patch topical DAILY PRN pain #30 10/29/24 (Lidoderm) ea naproxen 500 mg tablet 500 mg PO BID PRN pain 10 days #20 10/29/24 tabs Allergies Allergy/AdvReac Type Severity Reaction Status Date / Time No Known Allergies Allergy Verified 10/29/24 10:40 Review of Systems Review of Systems: Yes all other systems are reviewed and are negative Constitutional: Constitutional: Reports as per [facility] Past Medical History Attestation statement: The following information was validated with the patient. Source: old records reviewed Physical Exam Vital Signs: Vital Signs: Last Vital Signs Temp 97.1 F 10/29/24 10:39 Pulse 78 10/29/24 10:39 Resp 18 10/29/24 10:39 BP 199/49 H 10/29/24 10:39 Pulse Ox 97 10/29/24 10:39 O2 Del Method Room Air 10/29/24 10:39 BMI result Body Mass Index 29.2 Const: General: cooperative, healthy appearing and no acute distress Orientation/consciousness: patient oriented x3 Limitations: no limitations HEENT: Head: Yes normal to inspection and Yes atraumatic Ears: hearing grossly normal bilaterally General nose exam: Normal external nose present Face and sinus: Yes normal facial exam Eyes: General: appearance normal, both eyes and all related structures EOM: EOMs intact bilaterally Neck: Other: No midline cervical spinous tenderness to palpation. Mild left-sided paraspinal/trapezius muscle reproducible tenderness Neck: Yes normal visual inspection and Yes no meningeal signs Resp: Effort & Inspection: normal respiratory effort and no respiratory distress Cardio: Rate: regular rate Skin: Rashes: no rashes Wounds: no wounds Neuro: General: patient oriented x3, tone normal and no meningeal signs Cranial nerves: Yes CN's II-XII intact bilaterally Gait exam (Neuro): Normal gait present Extrem: Other: Old surgical scars noted to LUE. + reproducible left elbow tenderness to palpation. No overlying erythema/warmth. Full range of motion intact with some discomfort. Left shoulder, hand, wrist nontender. FROM & NV intact distally. Sensation intact to light touch. Right elbow without deformity or tenderness. FROM/NV intact Course Course Course Narrative: XR Elbow Brett min 3V IMPRESSION: 1. LEFT elbow demonstrating a surgical stabilization screw within the radial head. No complication or acute fracture evident. No joint effusion. No acute findings. 2. RIGHT elbow demonstrating no bony or joint abnormalities. No joint effusion. XR forearm LT 2V IMPRESSION: No acute findings left forearm Results discussed with patient including worrisome signs and symptoms and strict return precautions, and when to return to the emergency department. They verbalized understanding and feel safe for discharge at this time. Medications Administered Discontinued Medications Generic Name Dose Route Start Last Admin Trade Name Freq PRN Reason Stop Dose Admin Ketorolac Tromethamine 30 mg 10/29/24 12:02 10/29/24 12:12 Ketorolac Tromethamine 30 Mg/Ml Vial IM 10/29/24 12:03 30 mg ONCE ONE Administration Medical Decision Making Medical Decision Making MDM Narrative: 39-year-old female with past medical history of anxiety, depression, hx IVDA, MRSA, LUE fracture s/p ORIF, presenting to the ED complaining of acute on chronic left elbow pain radiating to forearm and neck x months. On exam hypertensive, NAD, nontoxic appearing, physical exam as noted above. Concern for arthralgia vs ? Fracture vs sprain vs tendinopathy vs radiculopathy. Low suspicion for DVT at this time. Unlikely CVT, cervical dissection. No evidence of cellulitis/septic joint. Low suspicion for ACS Plan: X-ray Please refer to course for remaining clinical decision making, interpretation of labs/imaging results, and discussions with consultants and/or family members. Differential Diagnosis Differential Diagnoses: The differential diagnosis associated with the presentation includes As above Independent Interpretation I performed an independent interpretation of an: Plain X-Ray Radiology Impression Discussion of test interpretation with radiology: I have reviewed the radiologist's reading. External Record Review External record reviewed: Inpatient record, Office record, Outpatient record, Prior outpatient labs, Prior outpatient radiology, Primary care record and Outside ED record Tests considered The following testing was considered but not selected: As above Prescription Management I considered prescription management with: Pain Medication Chronic Conditions Patient?s care impacted by: Other Social Determinants Patient?s care significantly limited by Social Determinants of Health including: Alcoholism and drug addiction in family, Problems related to primary support group and Other Social Determinant of Health Discharge Plan Discharge Clinical Impression: Chronic pain of left elbow Patient Disposition: Home, Self-Care Instructions: Arthralgia (ED) Additional Instructions: Your x-rays are unremarkable Please have close follow up with Orthopedics, and contact center specialist also put on your paperwork. Naproxen as an anti-inflammatory / pain medication, take with food Lidoderm patches are numbing patches, apply to painful area In addition take Tylenol at home If symptoms persist or worsen, pain becomes unbearable, you developed urinary retention or incontinence, or weakness return to the ED Prescriptions: New acetaminophen [Tylenol Extra Strength] 500 mg tablet 500 mg PO Q6H PRN (Reason: fever or pain) Qty: 14 0RF lidocaine [Lidoderm] 5 % adhesive patch,medicated 1 patch topical DAILY MDD remove after 12 hours PRN (Reason: pain) Qty: 30 0RF Rx Instructions: leave on most painful area for up to 12 hrs naproxen 500 mg tablet 500 mg PO BID PRN (Reason: pain) 10 Days Qty: 20 0RF No Action acetaminophen 325 mg capsule 650 mg PO Q8H PRN (Reason: fever or pain) Qty: 30 0RF ibuprofen 600 mg tablet 600 mg PO Q6H PRN (Reason: pain) Qty: 30 0RF mupirocin 2 % ointment 1 appl topical TID Qty: 15 0RF amoxicillin-pot clavulanate 875-125 mg tablet 1 tab PO Q12H 7 Days Qty: 14 0RF doxycycline hyclate 100 mg tablet 100 mg PO Q12H 7 Days Qty: 14 0RF Referrals: [facility] [Provider Group] [facility] Orthopedic Surgeons [Provider Group] [facility] Pain Management [Provider Group] Rachel Kirby ARNP [Primary Care Provider] - 1 week Print Language: Welsh
[2024-10-29] MEDS: Ketorolac Tromethamine 30 MG/ML VIAL IM (12:12)
[2024-10-29 12:17] VITALS: BP 113/69; PULSE 84; RESP 16; TEMP 36.4; O2SAT 98
[2024-10-29 12:18] VITALS: BP 113/69; PULSE 84; RESP 16; TEMP 36.4; O2SAT 98
--- OUTSIDE RECORDS SUMMARY | 2024-10-29 14:22 | XMS_ITS | Encounter Summary ---
Author Organization [facility] Address [address] [place] [address] Care Team Providers Care Double Needle Operator Name Role Phone Rachel Kirby NP Primary Care Provider [facility] Unavailable U navailable [facility] Unavailabl e Unavailable Encounter Details Date Type Department Care Team (Late st Contact Info) Description 02/24/2021 Orders Only [facility] [address] [place] [address] Rachel Kirby NP [address] [place] [address] Social History Tobacco Use Types Packs/Day Years [...] 11/04/2024 1:20 PM EDT Consult (Initial) [facility] [address] [facility] [address] [place] [address] Geoffrey Fairchild MD [address] [facility] [address] [place] [address] I have what I believe I 11/08/2024 2:05 PM EDT CPE - Comprehensive Physical Exam [facility] [address] [place] [address] Rachel Kirby NP [address] [place] [address] LINDA, [facility] 03/14/2025 3:00 PM EDT Office Visit [facility]. Optometry [address] [place] [phone] Juanjose Allen OD [address] [place] [address] est pt exam annual nodm nocl aodv [...] at . Any insurance accepted. Quit smoking resources-http://CASTT.DermLink documented as of this encounter Procedures * Due to [place] [employer] law, this organization might not be sharing negative HIV tests. Procedure Name Priority Date/Time Associated Diagnosis Comments VENIPUNCTURE Routine 02/24/2021 12:54 PM EDT Screening examination for infectious disease documented in this encounter Results * Due to [place] [employer] law, this organization might not be sharing [...] T-lymphocytes. For additional information, please refer to https://education.[employer]/faq/OBC017 (This link is being provided for informational/ educational purposes only.) 02/24/2021 12:5 4 PM EDT 02/25/2021 9:58 AM EDT Narrative Resulting Agency Comment [id number] us Rachel Kirby NP LABORATORY Final Result Performing Organization Address City/State/[facility] Co de Phone Number [facility] [address] [place] [address] documented in this encounter Visit Diagnoses Diagnosis Screening examination for infectious disease Screening examination for unspecified infectious disease documented in this encounter Care Teams Double Needle Operator Relationship Specialty Start Date End Date Rachel Kirby NP PCP - General Internal Medicine 04/19/18 [facility] 02/19/23 08/20/23 [facility] 11/20/23 06/21/24 documented as of this encounter
== END 2024-10-29 12:19 | disposition home or self-care (01) ==
PROVIDERS: Emergency Provider Emergency Medicine Emergency Medical Services; PCP Nurse Practitioner Acute Care
DX: M25.522 Pain in left elbow (principal); M54.2 Cervicalgia; R20.2 Paresthesia of skin
CPT/HCPCS: 73080; 73090; 96372; 99283; 99284; J1885

== ENCOUNTER → 2024-10-29 11:00 | Outpatient (BNV) | payer MEDICAID, SELFPAY | PROVIDERS: PCP Nurse Practitioner Acute Care; Visit Provider Radiology Diagnostic Radiology | DX: R22.30 Localized swelling, mass and lump, unspecified upper limb (principal); R22.32 Localized swelling, mass and lump, left upper limb | CPT/HCPCS: 73080; 73090 ==

== ENCOUNTER 2024-11-26 22:10 | Emergency (ER) | payer MEDICAID, SELFPAY ==
[2024-11-26 22:20] VITALS: BP 104/57; PULSE 90; O2SAT 98
[2024-11-26 22:23] VITALS: BP 116/65; PULSE 79; RESP 18; TEMP 36.6; O2SAT 97; BMI 30.1
--- NOTE | 2024-11-26 22:43 | ED.OVERDOSE ---
HPI - Overdose General Chief Complaint: Overdose Stated Complaint: used 1 bag of heroin, 8mg narcan given Time Seen by Provider: 11/26/24 22:34 Source: patient Mode of arrival: EMS Limitations: no limitations History of Present Illness ED Provider: HPI Narrative: Patient is sober living house went out with some friends and had a bag of heroin got obtunded was given 8 mg of nasal Narcan by sober living facility before EMS arrived patient has denied any other substance abuse saturating 97% at room air Related Data Previous Rx's ?Medication ?Instructions ?Recorded acetaminophen 325 mg capsule 650 mg (2 x 325 mg) PO Q8H PRN 10/05/24 fever or pain #30 caps amoxicillin 875 mg-potassium 1 tab PO Q12H 7 days #14 tabs 10/05/24 clavulanate 125 mg tablet doxycycline hyclate 100 mg tablet 100 mg PO Q12H 7 days #14 tabs 10/05/24 ibuprofen 600 mg tablet 600 mg PO Q6H PRN pain #30 tabs 10/05/24 mupirocin 2 % topical ointment 1 appl topical TID #15 grams 10/05/24 acetaminophen 500 mg tablet 500 mg PO Q6H PRN fever or pain 10/29/24 (Tylenol Extra Strength) #14 tabs lidocaine 5 % topical patch 1 patch topical DAILY PRN pain #30 10/29/24 (Lidoderm) ea naproxen 500 mg tablet 500 mg PO BID PRN pain 10 days #20 10/29/24 tabs Allergies Allergy/AdvReac Type Severity Reaction Status Date / Time No Known Allergies Allergy Verified 11/26/24 22:30 Review of Systems Review of Systems: Yes all other systems are reviewed and are negative [facility] Social History Social History Advance Directives: No Advance Directives Information Provided: Yes Do you have a plan to hurt others: No Plan Physical Exam Vital Signs: Vital Signs: Last Vital Signs Temp 97.8 F 11/27/24 08:41 Pulse 69 11/27/24 08:41 Resp 14 11/27/24 08:41 BP 127/70 11/27/24 08:41 Pulse Ox 98 11/27/24 08:41 O2 Del Method Room Air 11/27/24 08:41 BMI result Body Mass Index 30.1 Appearance: Sleepy easily arousable. No acute distress. Eyes: PERRLA, No Nystagmus ENT: Pharynx normal. Oral Mucosa moist Neck: Normal inspection. Neck supple. CVS: Normal heart rate and rhythm. Pulses normal. Respiratory: No respiratory distress. Equal air entry bilateral, no wheezing/rales/rhonchi Abdomen: Soft and nontender. Bowel sounds are present, no mass palpable, no CVA tenderness Skin: Skin warm and dry. Normal skin color. Normal skin turgor. Extremities: No lower extremity edema. No calf tenderness psych: Sleepy but arousable denied any SI or HI Neuro: Lethargic No motor deficit. No sensory deficit.No cerebellar signs , cranial nerves II-XII intact Course Reevaluation(s) Reevaluation #1: I, Dr. Reynolds have take over the care of this patient, I reviewed pertinent blood work and imaging, re-evaluated the patient when appropriate. Patient overdosed, awaiting you tox, and recovery team consult has been placed. Time: 07:00 Reevaluation #2: Working on getting patient into sober living Time: 09:47 Reevaluation #3: Time: 10:31 Date: 11/27/24 Provider: Nacho Reynolds DO Physician observation ended at _1030____. Patient has been cleared for discharge and going to a treatment facility Time: 10:31 Medications Administered Discontinued Medications Generic Name Dose Route Start Last Admin Trade Name Freq PRN Reason Stop Dose Admin Hydroxyzine HCl 25 mg 11/27/24 01:01 11/27/24 01:07 Hydroxyzine Hcl 25 Mg Tablet PO 11/27/24 01:02 25 mg ONCE ONE Administration Medical Decision Making Medical Decision Making [facility] Narrative: Patient with opiate use will consult care team as sober living room requested patient has denied any depression SI Lab Data 11/27/24 02:28 11/27/24 02:02 Labs: Lab Results 11/27/24 11/27/24 Range/Units 02:02 02:28 WBC 6.6 (4.8-10.8) X10*3/uL RBC 3.61 L (4.20-5.50) X10*6/uL Hgb 10.9 L (12.0-16.0) g/dl Hct 32.2 L (37.0-47.0) % MCV 89.2 (80.0-98.0) fL MCH 30.2 (27.0-33.0) pg MCHC 33.9 (31.0-35.0) g/dl RDW 12.3 (11.0-16.0) % Plt Count 258 D (160-400) X10*3/uL MPV 10.2 (9.4-12.3) fL Immature Gran % (Auto) 0.2 (0.0-0.4) % Neut % (Auto) 51.2 (45-73) % Lymph % (Auto) 39.0 (20-40) % [place] % (Auto) 7.6 (2-11) % Eos % (Auto) 1.5 (0-4) % Baso % (Auto) 0.5 (0-2) % Lymph # (Auto) 2.6 (1.2-4.9) X10*3/uL [place] # (Auto) 0.5 (0.1-1.2) X10*3/uL Eos # (Auto) 0.1 (0.0-0.4) X10*3/uL Baso # (Auto) 0.0 (0.0-0.2) X10*3/uL Abs Immat Gran (auto) 0.01 (0.00-0.03) X10*3/uL Absolute Neuts (auto) 3.4 (2.0-8.3) x10*3/uL Absolute Nucleated RBC 0.000 (0.0-0.012) X10*3/uL Nucleated RBC % (auto) 0.0 (0.0-0.2) /100WBC Sodium 141 (135-145) mmol/L Potassium 4.2 (3.3-5.1) mmol/L Chloride 105 (96-108) mmol/L Carbon Dioxide 27 (22-29) mmol/L Anion Gap 13 (12-20) BUN 20 H (9-16) mg/dL Creatinine 0.82 (0.5-1.4) mg/dL Estim Creat Clear Calc 89.6 Estimated GFR > 60 Random Glucose 108 (60-115) mg/dL Calcium 9.4 (8.4-10.2) mg/dL Magnesium 2.2 (1.6-2.6) mg/dL Total Bilirubin 0.3 (0.0-1.0) mg/dL AST 47 H (5-31) U/L ALT 48 H (0-31) U/L Alkaline Phosphatase 110 (39-117) U/L Total Protein 6.8 (6.5-8.0) g/dL Albumin 4.0 (3.5-5.0) g/dL Beta HCG, Quant < 2 mIU/mL Ethyl Alcohol < 10 mg/dL Discharge Plan Discharge Clinical Impression: Polysubstance abuse, Drug overdose Patient Disposition: Xfer Psychiatric Hosp Transfer Details: Drug treatment facility Additional Instructions: Overdose You were seen in our Emergency Department for an overdose today. You received narcan in order to reverse the effects of overdose. Narcan only lasts about 45 min to 1 hour in the system. You may have been given narcan to take home with you today, please keep it near you if you are going to use again, so others can use it if needed.? The number one risk for fatal overdose is using alone? [employer] is a 12/12 hotline where you can be on the phone with someone while you use, and they can call for help if they suspect an overdose: [phone] Things to look out for when you leave include severe vomiting or diarrhea, headaches, muscle cramps, fever, coughing, chest pain, or if you feel so short of breath you cannot walk to the bathroom. Please seek care and return any time for worsening symptoms.? You may have been provided with safer injection?items, please take time to take care of YOU and your health. Use new supplies whenever possible to lessen the chances of infections and other illnesses.? If you need more supplies, please go [facility],? [address] [place], [place] you can call or text to coordinate delivery of safer supplies. If you decide you want to stop or cut down on how much you?re using, please call the numbers on the list provided to you or you can come to our outpatient Addiction Treatment office [facility] (M-F 9am-5p) [address], [address] [place] [address]. [phone] Prescriptions: No Action acetaminophen 325 mg capsule 650 mg PO Q8H PRN (Reason: fever or pain) Qty: 30 0RF ibuprofen 600 mg tablet 600 mg PO Q6H PRN (Reason: pain) Qty: 30 0RF mupirocin 2 % ointment 1 appl topical TID Qty: 15 0RF amoxicillin-pot clavulanate 875-125 mg tablet 1 tab PO Q12H 7 Days Qty: 14 0RF doxycycline hyclate 100 mg tablet 100 mg PO Q12H 7 Days Qty: 14 0RF acetaminophen [Tylenol Extra Strength] 500 mg tablet 500 mg PO Q6H PRN (Reason: fever or pain) Qty: 14 0RF lidocaine [Lidoderm] 5 % adhesive patch,medicated 1 patch topical DAILY MDD remove after 12 hours PRN (Reason: pain) Qty: 30 0RF Rx Instructions: leave on most painful area for up to 12 hrs naproxen 500 mg tablet 500 mg PO BID PRN (Reason: pain) 10 Days Qty: 20 0RF Print Language: Senegalese
[2024-11-27] VITALS: BP 119/61; PULSE 76; RESP 16; TEMP 36.9; O2SAT 100
--- NOTE | 2024-11-27 00:37 | PC.NURSE ---
Addendum entered by Denita Marin 11/27/24 00:39: phone number for facility [phone] Original Note: this RN spoke with Deanne, pt is not welcome back to their sober living facility, needs a higher level of care . provider made aware
--- NOTE | 2024-11-27 01:10 | PC.NURSE ---
change management manager completed with tech and RN and security. pt very reluctant to undress. pt trying to hide medication in her bra, and then pants. medications removed and pt searched again. pt medicated per request.
[2024-11-27 02:31] LABS: Alanine Aminotransferase 48 U/L (0-31); Albumin Level 4.0 g/dL (3.5-5.0); Alkaline Phosphatase 110 U/L (39-117); Anion Gap 13 (12-20); Aspartate Amino Transferase 47 U/L (5-31); Blood Urea Nitrogen 20 mg/dL (9-16); Calcium 9.4 mg/dL (8.4-10.2); Carbon Dioxide 27 mmol/L (22-29); Chloride 105 mmol/L (96-108); Creatinine Clr Calc Pharmacy 89.6; Estimated Glomerular Filt Rate > 60; Magnesium 2.2 mg/dL (1.6-2.6); Potassium 4.2 mmol/L (3.3-5.1); Sodium 141 mmol/L (135-145); Total Protein 6.8 g/dL (6.5-8.0)
[2024-11-27 02:35] LABS: Hematocrit 32.2 % (37.0-47.0); Hemoglobin 10.9 g/dl (12.0-16.0); Imm Gran Abs Auto 0.01 X10*3/uL (0.00-0.03); Imm Gran Pct Auto 0.2 % (0.0-0.4); Lymphocytes Absolute Auto 2.6 X10*3/uL (1.2-4.9); Mean Corpuscular HGB Conc 33.9 g/dl (31.0-35.0); Mean Corpuscular Hemoglobin 30.2 pg (27.0-33.0); Mean Corpuscular Volume 89.2 fL (80.0-98.0); NRBC Abs Auto 0.000 X10*3/uL (0.0-0.012); NRBC Pct Auto 0.0 /100WBC (0.0-0.2); Platelet Count 258 X10*3/uL (160-400); Red Blood Count 3.61 X10*6/uL (4.20-5.50); White Blood Count 6.6 X10*3/uL (4.8-10.8)
[2024-11-27 02:45] LABS: MANUAL DIFF FLAG NO
--- NOTE | 2024-11-27 03:30 | PC.NURSE ---
pt resting comfortably at this time, unable to provide urine. no apparent distress noted
[2024-11-27 04:27] VITALS: BP 113/60; PULSE 66; RESP 14; TEMP 36.5; O2SAT 95
[2024-11-27 06:21] VITALS: BP 101/70; PULSE 65; RESP 14; TEMP 36.7; O2SAT 97
--- NOTE | 2024-11-27 07:08 | PC.NURSE ---
pt incont of urine on the stretcher. forging dies final finisher escorted to bathroom to change and wash. still unable to obtain UA
[2024-11-27 08:41] VITALS: BP 127/70; PULSE 69; RESP 14; TEMP 36.6; O2SAT 98
[2024-11-27 10:41] VITALS: BP 127/70; PULSE 69; RESP 14; TEMP 36.6; O2SAT 98
--- NOTE | 2024-11-27 10:46 | MHC.CARE ---
Pt has been accepted to the [facility] in [place], [place] and will be sent in a Lyft.
== END 2024-11-27 10:41 | disposition other institution (70) ==
PROVIDERS: Internal Medicine; Emergency Provider Emergency Medicine
DX: T40.1X1A Poisoning by heroin, accidental (unintentional), initial encounter (principal); F19.10 Other psychoactive substance abuse, uncomplicated; Y92.89 Other specified places as the place of occurrence of the external cause
CPT/HCPCS: 36415; 80053; 80307; 83735; 84702; 85025; 99285; S9485

== ENCOUNTER 2024-12-25 14:58 | Outpatient (REF) | payer MEDICAID, SELFPAY ==
--- OUTSIDE RECORDS SUMMARY | 2024-12-25 15:29 | XMS_ITS | Encounter Summary ---
Author Organization [facility] Address [address] [place] [address] Care Team Providers Care Stacker Name Role Phone Rachel Kirby NP Primary Care Provider [facility] Unavailable U navailable [facility] Unavailabl e Unavailable Encounter Details Date Type Department Care Team (Late st Contact Info) Description 02/24/2021 Orders Only [facility] [address] [place] [address] Rachel Kirby NP [address] [place] [address] Social History Tobacco Use Types Packs/Day Years Used Date Smoking Tobacco: Every Day Cigarettes 1 24.6 Started: 06/04/2000 Smokeless Tobacco: Current Comments:Started at [...] Upcoming Encounters Date Type Department Care Team (Late st Contact Info) Description 03/14/2025 3:00 PM EDT Office Visit [facility]. Optometry [address] [place] [phone] Juanjose Allen OD [address] [place] [address] est pt exam annual nodm nocl aodv [...] at . Any insurance accepted. Quit smoking resources-http://makesmoSiteministory.org documented as of this encounter Procedures * Due to [place] state law, this organization might not be sharing negative HIV tests. Procedure Name Priority Date/Time Associated Diagnosis Comments VENIPUNCTURE Routine 02/24/2021 12:54 PM EDT Screening examination for infectious disease documented in this encounter Results * Due to [place] state law, this organization might not be [...] T-lymphocytes. For additional information, please refer to https://education.[employer]/faq/ESL494 (This link is being provided for informational/ educational purposes only.) 02/24/2021 12:5 4 PM EDT 02/25/2021 9:58 AM EDT Narrative Resulting Agency Comment [id number] Rachel Kirby NP LABORATORY Final Result [facility] [address] [place] [address] documented in this encounter Visit Diagnoses Diagnosis Screening examination for infectious disease Screening examination for unspecified infectious disease documented in this encounter Care Teams Stacker Relationship Specialty Start Date End Date Rachel Kirby NP PCP - General Internal Medicine 04/19/18 [facility] 02/19/23 08/20/23 [facility] 11/20/23 06/21/24 documented as of this encounter
== END 2024-12-25 14:59 | disposition home or self-care (01) ==
LOC: HO.HOSX 14:58
DX: Z13.89 Encounter for screening for other disorder (principal)

== ENCOUNTER 2025-02-04 11:02 | Outpatient (REF) | payer MEDICAID, SELFPAY ==
--- NOTE | ~2025-02-04 | XR_ITS ---
EXAMINATION: XR FOREARM 2 VIEWS LEFT HISTORY: S52.90XA - Unspecified fracture of unspecified forearm, initial encounter... COMPARISON: Comparison is made with the prior examination dated 10/29/2024. FINDINGS: AP and lateral views of the left forearm are submitted. Osseous mineralization is normal. A single screw is seen in the radial head. There is no acute fracture or dislocation. The visualized elbow and wrist joint spaces are preserved. The soft tissues are unremarkable. XR/XR forearm LT 2V IMPRESSION: No acute abnormality. Electronically signed by: Scout Harris MD 02/04/2025 01:51 PM EDT
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
--- OUTSIDE RECORDS SUMMARY | 2025-02-04 14:59 | XMS_ITS | Encounter Summary ---
Author Organization [facility] Address [address] [place] [address] Care Team Providers Care Registered Phlebotomist Part Time Name Role Phone Rachel Kirby NP Primary Care Provider Sharif Serrano MD Unavailable [phone] Berta Mcintosh MD Primary Care Provider Yasmani Cook MD Primary Care Provider Unknown Pcp, Non [facility] [place] Care Provider Unava ilable Yasmani Cook MD Primary Care Provider Yasmani Cook MD Primary Care Provider [phone] Rachel Kirby NP Primary Care Provider [phone] [facility] Unavailable Unavai [facility], [facility] Unavailable U navailable [facility], [facility] Unavailabl e Unavailable Encounter Details Date Type Department Care Team (Late st Contact Info) Description 03/16/2009 Orders Only [place] [address] Stefanie Stone MD Social History Tobacco Use [...] 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 Optometry [address] [place] [phone] Juanjose Allen OD [address] [place] [address] est pt exam annual nodm nocl aodv aoir. elig 03/14/2025, 06/14mos EM $0 cp documented as of this encounter Results * Due to [place] [...] NON- FEMALES: < 5 MIU/ML POST-MENOPAUSAL FEMALES: < 10 MIU/ML VALUES FROM DIFFERENT ASSAY METHODS MAY VARY. THE USE OF THIS ASSAY TO MONITOR OR TO DIAGNOSE PATIENTS WITH CANCER OR ANY CONDITION UNRELATED TO HAS NOT BEEN CLEARED OR APPROVED BY THE FDA OR THE FIRE ENGINE OPERATOR OF THIS ASSAY. 03/17/2009 03/17/2009 7:1 7 PM EDT us Stefanie Stone MD LAB SAME DAY RESULT Final Result [facility] [address] [place] [address] documented in this encounter Visit Diagnoses Diagnosis examination or test, unconfirmed- Primary documented in this encounter Care Teams Registered Phlebotomist Part Time Relationship Specialty Start Date End Date Rachel Kirby NP [address] [place] [address] PCP - General 05/22/10 04/17/11 Sharif Serrano MD [address] [place] [address] PCP - Backup PCP 06/20/08 04/17/11 Berta Mcintosh MD [facility] [address] [place] [address] PCP - General 04/18/11 12/30/12 Yasmani Cook MD [address] [place] [address] PCP - General Internal Medicine 12/31/12 12/29/14 Unknown Pcp, Non [facility] PCP - General 12/30/14 09/03/15 Yasmani Cook MD [address] [place] [address] PCP - General Internal Medicine 09/04/15 02/28/18 Yasmani Cook MD [address] [place] [address] PCP - General 03/01/18 04/18/18 Doe RunRachel NP PCP - General Internal Medicine 04/19/18 [facility] 07/21/1908/19 [facility] 02/19/23 08/20/23 Ree [facility] 11/20/23 06/21/24 documented as of this encounter
--- OUTSIDE RECORDS SUMMARY | 2025-02-04 14:59 | XMS_ITS | Encounter Summary ---
Author Organization [facility] Address [address] [place] [address] Care Team Providers Care Clinical Psychiatrist Name Role Phone Rachel Kirby NP Primary Care Provider [phone] Care, [facility] Unavailable Unavai [facility], [facility] Unavailable U navailable [facility], [facility] Unavailabl e Unavailable Encounter Details Date Type Department Care Team (Late st Contact Info) Description 04/09/2019 Orders Only [facility] [address] [place] [address] Rachel Kirby NP [address] [place] [address] Social History Tobacco Use Types Packs/Day Years [...] 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 documented in this encounter Plan of Treatment Upcoming Encounters Date Type Department Care Team (Late st Contact Info) Description 03/14/2025 3:00 PM EDT Office Visit [facility]. Optometry [address] [place] [address] Juanjose Allen, JERONIMO [address] [place] [address] est pt exam annual nodm nocl aodv [...] smoking resources-[email or web address] documented as of this encounter Procedures * Due to [place] state law, this organization might not be [...] in this encounter Results * Due to [place] state law, this organization might not be sharing negative HIV tests. * LAMOTRIGINE (04/09/2019 11:28 AM EST) Lamotrigine 7.6 4.0 - 18.0 mcg/mL [facility] Comment: This test was developed and its analytical performance characteristics have been determined by [facility] [place], [place]. It has not been cleared or approved by the U.S. Food and Drug Administration. This assay has been validated pursuant to the CLIA regulations and is used for clinical purposes. 04/09/2019 11:2 8 AM EST 04/09/2019 10:21 PM EST Narrative Resulting Agency Comment [id number] [facility] LABORATORY Final Result Performing Organization Address City/[facility] Co de Phone Number [facility] [address] [place] [address] * CREATINE KINASE (CK), SERUM (04/09/2019 11:28 AM EST) CPK 59 29 - 143 U/L [facility] 04/09/2019 11:2 8 AM EST 04/09/2019 10:21 PM EST Narrative Resulting Agency Comment [id number] [facility] LAB SAME DAY RESULT Final Re sult Performing Organization Address City/[facility]/ZIP Co de Phone Number [facility] [address] [place] [address] * (ABNORMAL) COMPREHENSIVE METABOLIC PANEL WITH GFR (04/09/2019 11:28 AM EST) Glucose 102(H) 65 - 99 mg/dL [facility] Comment: Fasting reference interval For someone without known [...] needs for GFR calculation. Resulting Agency Comment [id number] Rachel Mirta [employer] LABORATORY Final Result Performing Organization Address City/[facility] de Phone Number [facility] [address] [place] [address] * CBC INCLUDES DIFFERENTIAL AND PLATELET COUNT [...] 10:21 PM EST Narrative Resulting Agency Comment [id number] Rachel Kirby LAB SAME DAY RESULT Final Re sult Performing Organization Address City/[facility] Co de Phone Number [facility] [address] [place] [address] * PAIN MANAGEMENT PROFILE WITH FENTANYL, URINE (PAINM2+) (04/09/2019 11:28 AM EST) Pathologist [facility] Fentanyl Screen (Urine) NEGATIVE CONFIRMED <0.5 ng/mL [...] analytical performance characteristics have been determined by [facility]. It has not been cleared or approved by the FDA. This assay has been validated pursuant to the CLIA regulations and is used for clinical purposes. Note 2 This drug testing is for medical treatment only. Analysis was performed as non-forensic testing and these results should be used only by healthcare providers to render diagnosis or treatment, or to monitor progress of medical conditions. For assistance with interpreting these drug results, please contact a [facility] Toxicology Specialist: [phone] ( ), M-F, 8am-6pm EST. 04/09/2019 11:2 8 AM EST 04/09/2019 10:21 PM EST Narrative Resulting Agency Comment [id number] Rachel Kirby NP LABORATORY Final Result [facility] [address] [place] [address] documented in this encounter Visit Diagnoses Diagnosis Screening for condition Screening for unspecified condition Non-traumatic rhabdomyolysis Bipolar disorder, current episode mixed, mild (HCC) Bipolar I disorder, most recent episode (or current) mixed, mild documented in this encounter Care Teams Clinical Psychiatrist Relationship Specialty Start Date End Date Rachel Kirby NP PCP - General Internal Medicine 04/19/18 [facility] 07/21/1908/19 [facility] 02/19[facility]23 [facility]20[facility]/20/23 06/21/24 documented as of this encounter
--- OUTSIDE RECORDS SUMMARY | 2025-02-04 14:59 | XMS_ITS | Encounter Summary ---
Author Organization [facility] Address [address] [place] [address] Care Team Providers Care Non Linear Editor Name Role Phone Rachel Kirby NP Primary Care Provider [phone] [facility] U navailable [facility] Unavailabl e Unavailable Reason for Visit * Reason Comments E-prescribing Refill Request Encounter Details Date Type Department Care Team ([facility] st Contact Info) Description 03/06/2021 Refill [facility] [address] [place] [address] Rachel Kirby NP [address] [place] [address] E-prescribing Refill Request Social History Tobacco Use Types Packs/Day Years Used Date Smoking Tobacco: Every Day Cigarettes 1 24.7 Started: 06/04/2000 Smokeless Tobacco: Current Comments:Started at [...] file Not on file Not on file [employer] Not on file Not on file Not on file documented as of this encounter Plan of Treatment Upcoming Encounters Date Type Department Care Team (Late st Contact Info) Description 03/14/2025 3:00 PM EDT Office Visit [facility]. Optometry [address] [place] [address] AllenJavyis, OD [address] [place] [address] est pt exam annual nodm nocl aodv [...] disorders documented in this encounter Care Teams Non Linear Editor Relationship Specialty Start Date End Date Rachel Kirby NP PCP - General Internal Medicine 04/19/18 [facility] 02/19/23 08/20/23 [facility] 11/20/23 06/21/24 documented as of this encounter
--- OUTSIDE RECORDS SUMMARY | 2025-02-04 14:59 | XMS_ITS | Encounter Summary ---
Author Organization [facility] Address [address] [place] [address] Care Team Providers Care Freezer Person Name Role Phone Rachel Kirby NP Primary Care Provider [phone] [facility] Unavailable U navailable [facility] Unavailabl e Unavailable Encounter Details Date Type Department Care Team (Late st Contact Info) Description 02/24/2021 Orders Only [facility] [address] [place] [phone] Victoria Calhoun, RN Social History Tobacco Use [...] Description 03/14/2025 3:00 PM EDT Office Visit [facility]. Optometry [address] [place] [address] AllenJuanjose, OD [address] [place] [address] est pt exam annual nodm nocl aodv [...] at . Any insurance accepted. Quit smoking resources-[email or web address] documented as of this encounter Procedures * [...] needs for GFR calculation. Resulting Agency Comment [id number] Rachel Kirby NP LABORATORY Final Result [facility] [address] [place] [address] * (ABNORMAL) HEPATIC FUNCTION PANEL (ALT,AST,ALK PH,BILI'S,TP,ALB) [...] 2:34 PM EDT Narrative Resulting Agency Comment [id number] Rachel Kirby NP LABORATORY Final Result Performing Organization Address City/State/[facility] de Phone Number [facility] [address] [place] [address] documented in this encounter Visit Diagnoses Diagnosis Hx of substance abuse Other, mixed, or unspecified nondependent drug abuse, unspecified documented in this encounter Care Teams Freezer Person Relationship Specialty Start Date End Date Rachel Kirby NP PCP - General Internal Medicine 04/19/18 Micah Chiang [facility] 02/19/23 08/20/23 Ree [facility] 11/20/23 06/21/24 documented as of this encounter
--- OUTSIDE RECORDS SUMMARY | 2025-02-04 14:59 | XMS_ITS | Encounter Summary ---
Author Organization [facility] Address [address] [place] [address] Care Team Providers Care Retirement Officer Name Role Phone Rachel Kirby NP Primary Care Provider [phone] Sharif Serrano MD Unavailable [phone] Berta Mcintosh MD Primary Care Provider Yasmani Cook MD Primary Care Provider Unknown Pcp, Non [facility] Primary Care Provider Unava ilable Yasmani Cook MD Primary Care Provider Yasmani Cook MD Primary Care Provider [phone] Rachel Kirby NP Primary Care Provider [phone] Care, [facility] Unavailable Unavai [facility], [facility] Unavailable U navailable [facility] Unavailabl e Unavailable Encounter Details Date Type Department Care Team (Late st Contact Info) Description 11/24/2009 Orders Only [facility] [address] [place] [phone] Rachel Kirby NP [address] [place] [address] Social History Tobacco Use Types Packs/Day Years [...] 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 Optometry [address] [place] [address] Juanjose Allen, OD [address] [place] [address] est pt exam annual nodm nocl aodv aoir. elig 03/14/2025, 06/14mos EM $0 cp documented as of this encounter Procedures * Due to [place] law, this organization might not be sharing negative HIV tests. Procedure Name Priority Date/Time Associated Diagnosis Comments LYME DISEASE PANEL W/WB REFLEX Routine 11/24/2009 Erythema migrans (Lyme disease) documented in this encounter Results * Due to [place] law, this organization might not be sharing negative HIV tests. * LYME DISEASE PANEL W/WB REFLEX (11/24/2009) LYME (B. BURGDORFERI) AB SCREEN NEGATIVE [facility] Comment: < OR = 0.90 NEGATIVE 0.91 - 1.09 EQUIVOCAL > OR = 1.10 POSTIVE LYME EIA SCREEN IS REFLEXED TO WESTERN BLOT IF POSITIVE. 11/24/2009 11/24/2009 10: 53 PM EDT Rachel Kirby SUPERVISOR DIE CASTING LABORATORY Final Result [facility] [address] [place] [address] documented in this encounter Visit Diagnoses Diagnosis Erythema migrans (Lyme disease) Lyme disease documented in this encounter Care Teams Retirement Officer Relationship Specialty Start Date End Date Rachel Kirby NP [address] [place] [address] PCP - General 05/22/10 04/17/11 Sharif Serrano MD [address] [place] [address] PCP - Backup PCP 06/20/08 04/17/11 Berta Mcintosh MD [address] [address] PCP - General 04/18/11 12/30/12 Yasmani Cook MD [address] [place] [address] PCP - General Internal Medicine 12/31/12 12/29/14 Unknown Pcp, Non g PCP - General 12/30/14 09/03/15 Yasmani Cook MD [address] [place] [address] PCP - General Internal Medicine 09/04/15 02/28/18 Yasmani Cook MD [address] [place] [address] PCP - General 03/01/18 04/18/18 Rachel Kirby NP PCP - General Internal Medicine 04/19/18 [facility] 07/21/1908/19 Micah Chiang [facility] Health Assistants 02/19/23 08/20/23 [facility] Ass[facility] 11/20/23 06/21/24 documented as of this encounter
--- OUTSIDE RECORDS SUMMARY | 2025-02-04 14:59 | XMS_ITS | Encounter Summary ---
Author Organization [facility] Address [address] [place] [address] Care Team Providers Care Silver Lap Machine Tender Name Role Phone Berta Mcintosh MD Primary Care Provider Yasmani Cook MD Primary Care Provider Unknown Pcp, Non g Primary Care Provider Unava ilYasmani Roberts MD Primary Care Provider Yasmani Cook MD Primary Care Provider [place] NP Primary Care Provider [facility] Unavailable Unavai [facility], [facility] Unavailable U [facility], [facility] Unavailabl e Unavailable Reason for Visit * Reason Comments E-prescribing Refill Request ACETAMINOPH [id number] Encounter Details Date Type Department Care Team (Late st Contact Info) Description 09/15/[address] [facility] [address] [place] [phone] Berta Mcintosh MD [facility] [address] [place] [address] E-prescribing Refill Request ([id number] ) Social History Tobacco Use Types [...] 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 Optometry [address] [place] [address] Juanjose Allen, OD [address] [place] [address] est pt exam annual nodm nocl aodv aoir. elig 03/14/2025, 06/14mos EM $0 cp documented as of this encounter Visit Diagnoses Not on filedocumented in this encounter Care Teams Silver Lap Machine Tender Relationship Specialty Start Date End Date Berta Mcintosh MD [facility] [address] [place] [address] PCP - General 04/18/11 12/30/12 Yasmani Cook MD [address] [place] [address] PCP - General Internal Medicine 12/31/12 12/29/14 Unknown Pcp, Non [facility] PCP - General 12/30/14 09/03/15 Yasmani Cook MD [address] [place] [address] PCP - General Internal Medicine 09/04/15 02/28/18 Yasmani Cook MD [address] [place] [address] PCP - General 03/01/18 04/18/18 Rachel Kirby NP PCP - General Internal Medicine 04/19/18 [facility]ants 07/21/1908/19 [facility] 02/19[facility]23 08[facility]20[facility] 11/20/23 06/21/24 documented as of this encounter
--- OUTSIDE RECORDS SUMMARY | 2025-02-04 14:59 | XMS_ITS | Encounter Summary ---
Author Organization [facility] Address [address] [place] [address] Care Team Providers Care Wealth Management Manager Name Role Phone Rachel Kirby NP Primary Care Provider [phone] Care, [facility] Unavailable Unakyi [facility] Unavailable U navailable [facility], [facility] Unavailabl e Unavailable Encounter Details Date Type Department Care Team (Late st Contact Info) Description 05/30/2019 Telephone [facility] [address] [place] [phone] Rachel Kirby NP 4 [place] [address] Social History Tobacco Use Types Packs/Day Years [...] 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 Optometry [address] [place] [phone] Juanjose Allen, OD 5 [place] [address] est pt exam annual nodm nocl aodv [...] on filedocumented in this encounter Care Teams Wealth Management Manager Relationship Specialty Start Date End Date Rachel Kirby NP PCP - General Internal Medicine 04/19/18 Fabien [facility] Health [facility]istants 07/21/1908/19 [facility] 02/19/23 08/20/23 Ree [facility] Health Assistants 11/20/23 06/21/24 documented as of this encounter
--- OUTSIDE RECORDS SUMMARY | 2025-02-04 14:59 | XMS_ITS | Encounter Summary ---
Author Organization [facility] Address 5 [place] [address] Care Team Providers Care Natural Gas Basis Trader Name Role Phone Rachel Kirby NP Primary Care Provider Sharif Serrano MD Unavailable [phone] Berta Mcintosh MD Primary Care Provider Yasmani Cook MD Primary Care Provider [phone] Unknown Pcp, Non [facility] Primary Care Provider Unava ilable Yasmani Cook MD Primary Care Provider [phone] Yasmani Cook MD Primary Care Provider Rachel Kirby NP Primary Care Provider [phone] Care, [facility] Unavailable Unavai [facility], [facility] Unavailable U navailable [facility], [facility] Unavailabl e Unavailable Encounter Details Date Type Department Care Team (Late st Contact Info) Description 09/23/2009 Orders Only [facility] [address] [place] [phone] Vannesa Marin PA [facility] [address] [facility] 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 elig 03/14/2025, 06/14mos EM $0 cp documented as of this encounter Procedures * Due to [place] Online[employer] law, this organization might not be sharing negative HIV tests. Procedure Name Priority Date/Time Associated Diagnosis Comments MONOSPOT Routine 09/23/2009 Malaise and fatigue CBC 5 PART DIFF Routine 09/23/2009 Malaise and fatigue HEPATIC FUNCTION PANEL Routine 09/23/2009 Malaise and fatigue documented in this encounter Results * Due to [place] [employer] law, this organization might not be sharing [...] DIAGNOSTICS 09/23/2009 09/23/2009 5:3 2 PM EDT us Vannesa [facility] Final Result [facility] [address] [place] [address] * CBC 5 PART DIFF (09/23/2009) WHITE [...] [facility] LAB SAME DAY RESULT Final Result [facility] [address] [place] [address] * MONOSPOT (09/23/2009) Heterophile Ab NEGATIVE SEE BELOW [facility] Comment: REFERENCE: NEGATIVE: HETEROPHILE IF POSITIVE INDICATES CURRENT, PRIMARY INFECTION. 09/23/2009 09/23/2009 5:3 2 PM EDT Vannesa [facility] LAB SAME DAY RESULT Final Result Performing Organization Address City/[facility]/ZIP Co de Phone Number [facility] [address] [place] [address] documented in this encounter Visit Diagnoses Diagnosis Malaise and fatigue Other malaise and fatigue documented in this encounter Care Teams Natural Gas Basis Trader Relationship Specialty Start Date End Date Rachel Kirby NP [address] [place] [address] PCP - General 05/22/10 04/17/11 Sharif Serrano MD [address] [place] [address] PCP - Backup PCP 06/20/08 04/17/11 Berta Mcintosh MD [facility] [address] [place] [address] PCP - General 04/18/11 12/30/12 Yasmani Cook MD [address] [place] [address] PCP - General Internal Medicine 12/31/12 12/29/14 Unknown Pcp, Non [facility] PCP - General 12/30/14 09/03/15 Yasmani Cook MD [address] [place] [address] PCP - General Internal Medicine 09/04/15 02/28/18 Yasmani Cook MD [address] [place] [address] PCP - General 03/01/18 04/18/18 Rachel Kirby NP PCP - General Internal Medicine 04/19/18 [facility] 07/21/1908/19 [facility] 02/19/23 08/20/23 [facility] Health Assistants 11/20/23 06/21/24 documented as of this encounter
--- OUTSIDE RECORDS SUMMARY | 2025-02-04 14:59 | XMS_ITS | Encounter Summary ---
Author Organization [facility] Address [address] [place] [address] Care Team Providers Care Ingredient Scaler Name Role Phone Berta Mcintosh MD Primary Care Provider [phone] Yasmani Cook MD Primary Care Provider [phone] Unknown Pcp, Non g Primary Care Provider Unava ilYasmani Roberts MD Primary Care Provider [phone] Yasmani Cook MD Primary Care Provider [place]achel darby NP Primary Care Provider [phone] [facility] Unavailable Unavai [facility] Unavailable U navailable 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 Optometry 5 [place] [address] Juanjose Allen, OD 5 [place] [address] est pt exam annual nodm nocl aodv aoir. elig 03/14/2025, 06/14mos EM $0 cp documented as of this encounter Visit Diagnoses Diagnosis Depression with anxiety Dysthymic disorder documented in this encounter Care Teams Ingredient Scaler Relationship Specialty Start Date End Date Berta Mcintosh MD [facility] [address] [place] [address] PCP - General 04/18/11 12/30/12 Yasmani Cook MD [address] [place] [address] PCP - General Internal Medicine 12/31/12 12/29/14 Unknown Pcp, Non [facility] PCP - General 12/30/14 09/03/15 Yasmani Cook MD [address] [place] [address] PCP - General Internal Medicine 09/04/15 02/28/18 Yasmani Cook MD [address] [place] [address] PCP - General 03/01/18 04/18/18 Rachel Kirby NP PCP - General Internal Medicine 04/19/18 [facility]istants 07/21/1908/19 [facility] 02/19/23 08/20/23 Ree [facility] Health Assist[facility] 11/20/23 06/21/24 documented as of this encounter
--- OUTSIDE RECORDS SUMMARY | 2025-02-04 14:59 | XMS_ITS | Encounter Summary ---
Author Organization [facility] Address [address] [place] [address] Care Team Providers Care Hazmat Cdl A Driver Name Role Phone Rachel Kirby NP Primary Care Provider Sharif Serrano MD Unavailable [phone] Berta Mcintosh MD Primary Care Provider Yasmani Cook MD Primary Care Provider Unknown Pcp, Non [facility] Primary Care Provider Unava ilable Yasmani Cook MD Primary Care Provider [phone] Yasmani Cook MD Primary Care Provider Rachel Kirby NP Primary Care Provider [phone] [facility] Unavai [facility], 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 Optometry 5 [place] [address] Juanjose Allen, OD [address] [place] [address] est pt exam annual nodm nocl aodv aoir. elig 03/14/2025, 06/14mos EM $0 cp documented as of this encounter Procedures * Due to [place] Vig[employer] law, this organization might not be sharing negative HIV tests. Procedure Name Priority Date/Time Associated Diagnosis Comments HCG (QUANTITATIVE) (CAN BE USED FOR TUMOR MARKER) Routine 03/17/2009 Examination or Test, Unconfirmed documented in this encounter Results * Due to [place] Vigme law, this organization might not be sharing [...] OR APPROVED BY THE FDA OR THE HAND IRONER OF THIS ASSAY. 03/17/2009 03/17/2009 7:1 7 PM EDT Stefanie Stone MD LAB SAME DAY RESULT Final Result Performing Organization Address City/State/[facility] Co de Phone Number [facility] [address] [place] [address] documented in this encounter Visit Diagnoses Diagnosis examination or test, unconfirmed documented in this encounter Care Teams Hazmat Cdl A Driver Relationship Specialty Start Date End Date Rachel Kirby NP [address] [place] [address] PCP - General 05/22/10 04/17/11 Sharif Serrano MD [address] [place] [address] PCP - Backup PCP 06/20/08 04/17/11 Berta Mcintosh MD [facility] [address] [place] [id number] PCP - General 04/18/11 12/30/12 Yasmani Cook MD [address] [place] [address] PCP - General Internal Medicine 12/31/12 12/29/14 Unknown Pcp, Non [facility] PCP - General 12/30/14 09/03/15 Yasmani Cook MD [address] [place] [address] PCP - General Internal Medicine 09/04/15 02/28/18 Yasmani Cook MD [address] [place] [address] PCP - General 03/01/18 04/18/18 Rachel Kirby NP PCP - General Internal Medicine 04/19/18 [facility] Community Health Assistants 07/21/1908/19 [facility] 02/19/23 08/20/23 Ree [facility] Health Assistants 11/20/23 06/21/24 documented as of this encounter
--- OUTSIDE RECORDS SUMMARY | 2025-02-04 14:59 | XMS_ITS | Encounter Summary ---
Author Organization [facility] Address [address] [place] [address] Care Team Providers Care Work Environment Safety Inspector Name Role Phone Rachel Kirby NP Primary Care Provider [phone] Care, [facility] Unavailable Unavai [facility], [facility] Unavailable U navailable [facility], [facility] Unavailabl e Unavailable Encounter Details Date Type Department Care Team (Late st Contact Info) Description 03/19/2019 Orders Only [facility] [address] [place] [address] Rachel Kirby NP [address] [place] [address] Social History Tobacco Use Types Packs/Day Years [...] 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 Optometry 5 [facility] [place] [phone] Juanjose Allen, OD 5 [place] [address] est pt exam annual nodm nocl aodv [...] on filedocumented in this encounter Care Teams Work Environment Safety Inspector Relationship Specialty Start Date End Date Rachel Kirby NP PCP - General Internal Medicine 04/19/18 Fabien [facility] Health Assistants 07/21/1908/19 [facility] 02/19/23 08/20/23 Ree [facility] Assistants 11/20/23 06/21/24 documented as of this encounter
--- OUTSIDE RECORDS SUMMARY | 2025-02-04 14:59 | XMS_ITS | Encounter Summary ---
Author Organization [facility] Address [address] [place] [address] Care Team Providers Care Set Up Machinist Name Role Phone Rachel Kirby NP Primary Care Provider [phone] [facility] Unavailable U navailable [facility], [facility] Unavailabl e Unavailable Encounter Details Date Type Department Care Team (Late st Contact Info) Description 02/24/2021 Orders Only [facility] 4 [place] [address] Rachel Kirby NP [address] [place] [address] Social History Tobacco Use Types Packs/Day Years [...] Description 03/14/2025 3:00 PM EDT Office Visit [facility]. Optometry 5 [place] [phone] Juanjose Allen OD [address] [place] [address] est pt exam annual nodm nocl aodv [...] at . Any insurance accepted. Quit smoking resources-http://makesmoQ Interactivetory.org documented as of this encounter Procedures * Due to [place] state law, this organization might not be sharing negative HIV tests. Procedure Name Priority Date/Time Associated Diagnosis Comments VENIPUNCTURE Routine 02/24/2021 12:54 PM EDT Screening examination for infectious disease documented in this encounter Results * Due to [place] state law, this [...] T-lymphocytes. For additional information, please refer to https://education.[employer].Ahorro Libre/faq/AAG276 (This link is being provided for informational/ educational purposes only.) 02/24/2021 12:5 4 PM EDT 02/25/2021 9:58 AM EDT Narrative Resulting Agency Comment [id number] Rachel Kirby NP LABORATORY Final Result [facility] [address] [place] [address] documented in this encounter Visit Diagnoses Diagnosis Screening examination for infectious disease Screening examination for unspecified infectious disease documented in this encounter Care Teams Set Up Machinist Relationship Specialty Start Date End Date Rachel Kirby NP PCP - General Internal Medicine 04/19/18 [facility] 02/19/23 08/20/23 [facility] Ass[facility] 11/20/23 06/21/24 documented as of this encounter
--- OUTSIDE RECORDS SUMMARY | 2025-02-04 14:59 | XMS_ITS | Encounter Summary ---
Author Organization [facility] Address [address] [place] [address] Care Team Providers Care Production Control Scheduler Name Role Phone Fabricio Kirby NP Primary Care Provider [phone] [facility] Unavailabl e Unavailable Reason for Visit * Reason Onset Date Comments Refill Request 12/26/2023 Encounter Details Date Type Department Care Team ([facility] st Contact Info) Description 12/26/2023 Refill [facility] 4 [place] [address] Fabricio Kirby NP [address] [place] [address] Refill Request Social History Tobacco Use Types [...] / family Once a week 02/04/2022 Attend catholic services Never 2021 Club Membership No 02/04/2022 Club Attendance More than 4 times per year 02/04 Marital Status Never 02/04/2022 Financial Resource Strain Answer Date R ecorded Difficulty paying for basics Unrecognized value 02/04/2022 How hard is it for you to pa y for utilities (electricity, gas, water)? Hard 02/04/2022 Food Insecurity Answer Date Recorded Worry that food will run out Unrecognized value 10/05/2022 Inability to get food Unrecognized value 023 Transportation Needs Answer Date Record ed Lacking transport to medical appts Unrecognized value 10/05/2022 Lacking transport to non-medical Unrecognized va lue 10/05/2022 Housing Stability Answer Date Recorded Unable to Pay for Housing in the Last Year Unrec ognized value 10/05/2022 Number of Places Lived in the Last Year 2 10/05/2022 Unstable Housing in the Last Year Unrecognized v alue 10/05/2022 Comments No Sex and Gender Information [...] Description 03/14/2025 3:00 PM EDT Office Visit [facility]. Optometry 5 [place] [address] Juanjose Allen OD [address] [place] [address] est pt exam annual nodm nocl aodv [...] at . Any insurance accepted. Quit smoking resources-http://AnonymAsktory.org documented as of this encounter Visit Diagnoses Not on filedocumented in this encounter Care Teams Production Control Scheduler Relationship Specialty Start Date End Date Fabricio Kirby NP PCP - General Internal Medicine 04/19/18 [facility] Health Assistants 11/20/23 06/21/24 documented as of this encounter
--- OUTSIDE RECORDS SUMMARY | 2025-02-04 14:59 | XMS_ITS | Encounter Summary ---
Author Organization [facility] Address [address] [place] [address] Care Team Providers Care Printing Gray Cloth Tender Name Role Phone Rachel Kirby NP Primary Care Provider [phone] Care, [facility] Unavailable Unavai [facility], 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 Optometry 5 [place] [address] Juanjose Allen OD 5 [place] [address] est pt exam annual nodm nocl aodv [...] of this encounter Procedures * Due to [place] Fixational law, this organization might not be sharing [...] in this encounter Results * Due to [place] Fixational law, this organization might not be sharing negative HIV tests. * (ABNORMAL) HEPATITIS B SURFACE ANTIBODY, QUALITATIVE (05/29/2019 4:32 PM EST) Hepatitis B virus surface Ab REACTIVE(A ) NON-REACT [facility] 05/29/2019 4:3 2 PM EST 05/30/2019 12:13 AM EST Narrative Resulting Agency Comment [id number] [facility] LABORATORY Final Result Performing Organization Address City/State/[facility] Co de Phone Number [facility] [address] [place] [address] * VARICELLA-ZOSTER VIRUS (VZV) ANTIBODY IGG, SERUM (05/29/2019 4:32 PM EST) Varicella zoster virus Ab.IgG 525.70 index [facility] Comment: Index Interpretation --------- <135.00 Negative - Antibody not detected 135.00 - 164.99 Equivocal > or = 165.00 Positive - Antibody detected A positive result indicates that the patient has antibody to VZV but does not differentiate between an active or past infection. The clinical diagnosis must be interpreted in conjunction with the clinical signs and symptoms of the patient. This assay reliably measures immunity due to previous infection but may not be sensitive enough to detect antibodies induced by vaccination. Thus, a negative result in a vaccinated individual does not necessarily indicate susceptibility to VZV infection. A more sensitive test for vaccination-induced immunity is Varicella Zoster Virus Antibody Immunity Screen, ACIF. 05/29/2019 4:32 PM EST 05/30/2019 12:13 AM EST Narrative Resulting Agency Comment [id number] [facility] LABORATORY Final Result Performing Organization Address [facility] de Phone Number [facility] [address] [place] [phone] * MUMPS VIRUS ANTIBODY, IGG, SERUM (05/29/2019 4:32 PM EST) [facility] [address] Mumps virus Ab.IgG >300.00 AU/mL [facility] Comment: AU/mL Interpretation ------- <9.00 Negative 9.00-10.99 Equivocal >10.99 Positive A positive result indicates that the patient has antibody to mumps virus. It does not differentiate between an active or past infection. The clinical diagnosis must be interpreted in conjunction with clinical signs and symptoms of the patient. 05/29/2019 4:32 PM EST 05/30/2019 12:13 AM EST Narrative Resulting Agency Comment [id number] [facility] LABORATORY Final Result Performing Organization Address [facility] de Phone Number [facility] [address] [place] [address] * MEASLES IGG AB (RUBEOLA) (05/29/2019 4:32 PM EST) [facility] [address] Measles virus Ab.IgG 124.00 AU/mL [facility] Comment: AU/mL Interpretation ----- <13.50 Negative 13.50-16.49 Equivocal >16.49 Positive A positive result indicates that the patient has antibody to measles virus. It does not differentiate between an active or past infection. The clinical diagnosis must be interpreted in conjunction with clinical signs and symptoms of the patient. 05/29/2019 4:32 PM EST 05/30/2019 12:13 AM EST Narrative Resulting Agency Comment [id number] [facility] LABORATORY Final Result Performing Organization Address [facility] de Phone Number [facility] [address] [place] [address] * RUBELLA ANTIBODY IGG, SERUM (05/29/2019 4:32 PM EST) Rubella virus Ab.IgG 1.68 index [facility] Comment: Index Interpretation ----- <0.90 Not consistent with Immunity 0.90-0.99 Equivocal > or = 1.00 Consistent with Immunity The presence of rubella IgG antibody suggests immunization or past or current infection with rubella virus. 05/29/2019 4:32 PM EST 05/30/2019 12:13 AM EST Narrative Resulting Agency Comment [id number] [facility] LABORATORY Final Result Performing Organization Address [facility] de Phone Number [facility] [address] [place] [address] * QUANTIFERON-TB GOLD (05/29/2019 4:32 PM EST) Pathologist [facility] Quantiferon(R)-TB Gold Plus NEGATIVE NEGATIVE [facility] [...] T-lymphocytes. For additional information, please refer to https://education.[employer].EQUISO/faq/ENG551 (This link is being provided for informational/ educational purposes only.) 05/29/2019 4:32 PM EST 05/30/2019 12:13 AM EST Narrative Resulting Agency Comment [id number] Rachel Kirby NP LABORATORY Final Result Performing Organization Address City/State/[facility] Co de Phone Number [facility] [address] [place] [address] documented in this encounter Visit Diagnoses Diagnosis Screening for condition Screening for unspecified condition documented in this encounter Care Teams Printing Gray Cloth Tender Relationship Specialty Start Date End Date Rachel Kirby NP PCP - General Internal Medicine 04/19/18 Fabien [place] 07/21/1908/19 Mariia [place] [facility] 02/19/23 08/20/23 Ree [facility] Health Ass[facility] 11/20/23 06/21/24 documented as of this encounter
--- OUTSIDE RECORDS SUMMARY | 2025-02-04 14:59 | XMS_ITS | Encounter Summary ---
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 Optometry 5 [place] [address] Juanjose Allen OD [address] [place] [address] est pt exam annual nodm nocl aodv [...] this encounter Results * Due to [place] BillShrink law, this organization might not be sharing [...] 2:20 PM EDT Narrative Resulting Agency Comment [id number] Rachel Kirby NP LABORATORY Final Result Performing Organization Address City/State/[facility] Co de Phone Number [facility] [address] [place] [address] * (ABNORMAL) HEPATITIS PANEL, ACUTE W/REFLEX (03/03/2021 11:35 AM EDT) Hepatitis A virus Ab.IgM NON-REAC TIVE NON-REACTIV E [facility] Comment: For additional information, please refer to http://education.SandForce/faq/WAR374 (This link is being provided for informational/ [...] of this assay have been determined by [employer]. The modifications have not been cleared or approved by the FDA. This assay has been validated pursuant to the CLIA regulations and is used for clinical purposes. For more information on this test, go to: http://education.SandForce/faq/BJS11o6 (This link is being provided for informational/ educational purposes only.) This assay is intended for use as an aid in the diagnosis of HCV infection and the management of HCV infected patients undergoing anti-viral therapy. 03/03/2021 11:3 5 AM EDT 03/03/2021 2:20 PM EDT Narrative Resulting Agency Comment [id number] Rachel [facility] LABORATORY Final Result Performing Organization Address [facility] de Phone Number [facility] [address] [place] [address] * HEMOGLOBIN A1C (03/03/2021 11:35 AM EDT) Pathologist [facility] Hemoglobin A1C 5.1 <5.7 % of total Hgb [facility] Comment: For the purpose of screening for the presence of diabetes: <5.7% Consistent with the absence of diabetes 5.7-6.4% Consistent with increased risk for diabetes (prediabetes) > or =6.5% Consistent with diabetes This assay result is consistent with a decreased risk of diabetes. Currently, no consensus exists regarding use of hemoglobin A1c for diagnosis of diabetes in children. According to [place] Diabetes Association (ADA) guidelines, hemoglobin A1c <7.0% represents optimal control in non- diabetic patients. Different metrics may apply to specific patient populations. Standards of Medical Care in Diabetes(ADA). Estimated Average Glucose 104 mg/dL (calc) [facility] 03/03/2021 11:3 5 AM EDT 03/03/2021 2:20 PM EDT Narrative Resulting Agency Comment [id number] [facility] LABORATORY Final Result Performing Organization Address [facility] de Phone Number [facility] [address] [place] [address] * CBC INCLUDES DIFFERENTIAL AND PLATELET COUNT (03/03/2021 11:35 AM EDT) [facility] WBC 6.1 3.8 - 10.8 Thousand/u L [...] 2:20 PM EDT Narrative Resulting Agency Comment [id number] [facility] LAB SAME DAY RESULT Final Re sult Performing Organization Address City/[facility]/ZIP Co de Phone Number [facility] [address] [place] [address] * THYROID STIMULATING HORMONE (TSH) WITH FREE T4 REFLEX, SERUM (03/03/2021 11:35 AM EDT) TSH 2.92 mIU/L [facility] Comment: Reference Range > or = 20 Years 0.40-4.50 Ranges First trimester 0.26-2.66 Second trimester 0.55-2.73 Third trimester 0.43-2.91 03/03/2021 11:3 5 AM EDT 03/03/2021 2:20 PM EDT Narrative Resulting Agency Comment [id number] [facility] LABORATORY Final Result Performing Organization Address City/[facility] Co de Phone Number [facility] [address] [place] [address] * (ABNORMAL) LIPID PANEL WITH REFLEX TO DIRECT LDL (03/03/2021 11:35 AM EDT) Cholesterol 171 <200 mg/dL [facility] HDL Cholesterol 45(L) > OR = 50 mg/dL [facility] Triglyceride 98 <150 mg/dL [facility] LDL Cholesterol 107(H) mg/dL (calc) [facility] Comment: Reference range: <100 Desirable range <100 mg/dL for primary prevention; <70 mg/dL for patients with CHD or diabetic patients with > or = 2 CHD risk factors. LDL-C is now calculated using the Dani-Peres calculation, which is a validated novel method providing better accuracy than the Friedewald equation in the estimation of LDL-C. Dani SS et al. PROSPER. 2013;310(19): 9518-1367 (http://education.QuantumID Technologies.Oxford Genetics/faq/FES044) CHOL/HDL Ratio 3.8 <5.0 (calc) [facility] Cholesterol Non-HDL 126 <130 mg/dL (calc) [facility] Comment: For patients with diabetes plus 1 major ASCVD risk factor, treating to a non-HDL-C goal of <100 mg/dL (LDL-C of <70 mg/dL) is considered a therapeutic option. 03/03/2021 11:3 5 AM EDT 03/03/2021 2:20 PM EDT Narrative Resulting Agency Comment [id number] Rachel Kirby NP LABORATORY Final Result Performing Organization Address City/State/[facility] Co de Phone Number [facility] [address] [place] [address] documented in this encounter Visit Diagnoses Diagnosis Screening for lipid disorders Screening for thyroid disorder Screening for condition Screening for unspecified condition Screening for diabetes mellitus Screen for STD (sexually transmitted disease) Screening examination for venereal disease documented in this encounter Care Teams Margin Trimmer Relationship Specialty Start Date End Date Rachel Kirby NP PCP - General Internal Medicine 04/19/18 Micah Chiang [facility] Health Assistants 02/19/23 08/20/23 Behavioral [facility] Health Assistants 11/20/23 06/21/24 documented as of this encounter
--- OUTSIDE RECORDS SUMMARY | 2025-02-04 14:59 | XMS_ITS | Clinical Summary ---
Author Organization [facility] Address [address] [place] [address] Care Team Providers Care Coating Mixer Name Role Phone Rachel Kirby NP Primary Care Provider [phone] Allergies No known active allergies Medications DULoxetine [...] 1 (one) time each day. 4 Active buPROPion ER (WELLBUTRIN XL) 300 MG 24 hr tablet Take 300 mg by mouth in the morning and at bedtime. 5 Active busPIRone HCl (BUSPAR) 10 MG tablet Take 10 mg by mouth. 5 Active Lidocaine (LIDODERM) 5 % patch 5 Active Naproxen (NAPROSYN) 500 MG tablet 5 Active Sofosbuvir-Velp atasvir 400-100 MG Tab 5 Active Active Problems Problem Noted Date Diagnosed Date Substance use disorder 03/01/2024 Depression with anxiety 10/13/2023 Hx of substance abuse 05/31/2011 Overview (02/04/2022): Detox with spectrum summer 2021 Methadone Bipolar disorder, current episode mixed, mild Overview (06/09/2023): Depression and anxiety Lamotrigine and duloxetine Followed by JACQUI Garcia IBS (irritable bowel syndrome) 02/07/2011 Overview (05/04/2018): Improved after she stopped opiates Tension headache 04/22/2008 Overview (05/04/2018): Has frequent headaches. Tylenol or Ibuprofen prn Tobacco abuse 04/22/2008 Resolved Problems Problem Noted Date Diagnosed Date Resolved Date Pain management 12/31/2012 05/04/2018 Overview (12/31/2012): 01/01- Dr Kinney in [place], back pain a and left arm pain s/p fall, hardware left elbow Change in skin moles 04/22/2008 018 Overview (07/04/2014): Rib pain 04/22/2008 02/07/2011 Overview (06/23/2008): Left lower anterior rib near xiphoid region. Xray ordered. confirmed 04/16/2008 09/07/19 12 Hearing loss 04/16/2008 06/09/2023 Overview (05/04/2018): Normal audiogram 2008 Encounters Date Type Department Care Team Description 11/21/2024 Telephone [facility] [address] [place] [address] Rachel Kirby NP PT-1 Form ([facility] address issue ) from Last 3 Months Immunizations Immunization Administration Dates Next Due Covid-19, Vector-nr (Bruce), 0.5 Ml 01/27/2021 DTP 12/20/1988 Flu Not O/W Specified, 3yrs & > 02/07/2011 Hep B (pedi) 02/12/1997,09/10/1996,08/09/1996 Influenza,injectable,MDCK, Prsrv Fr,Quad 021 Influenza,injectable,quad,Prsrv Fr 05/29/2019 MMR 08/17/1994 OPV, Trivalent (Admin Before 08/21/2015) 9 PPD/TST (Tuberculin Skin Test) 06/26/2012 Tdap 03/01/2024,05/04/2018 [...] / family Once a week 02/04/2022 Attend religion services Never 2021 Club Membership No 02/04/2022 [...] 79 06/09/2023 3:09 PM EST Temperature 36.7 C (98 F) 01/10/2019 12:04 PM EDT Respiratory Rate 18 [...] Visit [facility]. Optometry [address] [place] [phone] Juanjose Allen, JERONIMO [address] [place] [address] est pt exam annual nodm nocl aodv aoir. elig 03/14/2025, 06/14mos EM $0 cp Health Maintenance Due Date Last Done Comments Pneumococcal (1 of 2 - PCV) 2003 Mammogram/Breast Imaging 2024 COVID-19 Vaccine (2 - 2024- season) 2025 01/27/2021 Influenza (#1) 2025 03/03/2021, 12/2019, 02/07/2011 Pap Smear 06/12/2028 06/12/2023, 05/22, 05/14/2008, Additional [...] 05/22, 03/03/2021, Additional history exists HPV Vaccine (No Doses Required) Completed Hep A Aged Out No longer eligi [...] at . Any insurance accepted. Quit smoking resources-http://makesGameologytory.org Procedures * Due to [place] Salesconx law, this organization might not be sharing negative HIV tests. Procedure Name Priority Date/Time Associated Diagnosis Comments LIPID PANEL W/REFLEX TO DIRECT LDL Routine [...] to Health Maintenance Results * Due to [place] Salesconx law, this organization might not be sharing negative HIV tests. * LIPID PANEL W/REFLEX TO DIRECT LDL (05/16/2024 6:41 AM EST) Cholesterol 163 mg/dL [facility] Comment: DESIRABLE: <200 mg/dL BORDERLINE HIGH: 200-239 mg/dL HIGH: >239 mg/dL Triglyceride 167 mg/dL [facility] Comment: NORMAL: <150 mg/dL BORDERLINE HIGH: 150-199 mg/dL HIGH: 200-499 mg/dL VERY HIGH >499 mg/dL HDL Cholesterol 26 mg/dL [facility] Comment: DESIRABLE: >60 mg/dL BORDERLINE: 40-59 mg/dL UNDESIRABLE: <40 mg/dL Cholesterol.in LDL 104 mg/dL [facility] Comment: OPTIMAL: <100 mg/dL NEAR OPTIMAL: <130 mg/dL BORDERLINE HIGH: 130-159 mg/dL HIGH: 160-189 mg/dL VERY HIGH: >189 mg/dL VLDL Cholesterol 33.4 mg/dL [facility] CHOL/HDL Ratio 6.3 [facility] 05/16/2024 6:41 AM EST Unknown Provider [facility] LABORATORY Final Resu lt Performing Organization Address City/[facility]/ZIP Co de Phone Number [facility] Galenea ONE [address] [place] [address] * (ABNORMAL) HEPATITIS C RNA, QUANTITATIVE, PCR (03/01/2024 3:21 AM EDT) Hepatitis C virus RNA [id number](H ) NOT DETECTED IU/mL [facility] Hepatitis C virus RNA - Log 6.51(H) NOT DETECTED Log IU/mL [facility] Comment: For additional information, please refer to http://education.Chroma Therapeutics/faq/OOF30e9 (This link is being provided for informational/ educational purposes only.) 03/01/2024 3:21 AM EDT Narrative [facility] - 03/02/2024 3:17 PM EDT [facility] Received Date: us Chrissy Ventura LABORATORY Final Result Performing Organization Address City/[facility]/ZIP Co de Phone Number [facility] Galenea ONE [address] [place] [address] * THINPREP TIS PAP, HPV MRNA E6/E7 RFX HPV 16,18/45, CT/NG (06/12/2023 8:48 AM EST) Clinical information None given [facility] Date last menstrual period 05/08/2023 [facility] Date of previous PAP smear 05/14/2008 [facility] Date of previous biopsy NONE GIVEN [facility] Specimen source (Cvx/Vag) None given [facility] Statement of Adequacy (Cvx/Vag) Satisfactory for evaluation. Endocervical/segal sformation zone component present. [facility] Cytology, Pap Smear Cytology Results: Negative for intraepithelial lesion or malignancy. [facility] Cytology study comment (Cvx/Vag) This Pap test has been evaluated with computer assisted technology. [facility] Business Continuity Director (Cvx/Vag) EXJ, CT(ASCP) CT Screening Location: [place] [address] [facility] COMMENT SEE NOTE [facility] Comment: EXPLANATORY NOTE: The Pap is [...] HPV MRNA E6/E7 Not Detected Not Detected [facility] Comment: Methodology: Back Padder-Mediated Amplification This assay detects E6/E7 viral messenger RNA (mRNA) from 14 high-risk HPV types (16,18,31,33,35,39,45,51,52,56,58,59,66,68). Cervical sources are required for HPV testing. If a vaginal source from a patient who has had a total hysterectomy with removal of cervix was submitted, please contact the testing laboratory for alternative testing options. For additional information, please refer to http://Boombotix.Chroma Therapeutics/faq/GIJ834a5 (This link if provided for information/ educational purposes only.) Chlamydia trachomatis rRNA NOT DETECTED NOT DETECTED [facility] Neisseria Gonorrhoeae rRNA NOT DETECTED NOT DETECTED [facility] COMMENT SEE NOTE [facility] Comment: The analytical performance characteristics of this assay, when used to test SurePath(TM) specimens have been determined by [employer]. The modifications have not been cleared or approved by the FDA. This assay has been validated pursuant to the CLIA regulations and is used for clinical purposes. For additional information, please refer to https://Boombotix.Chroma Therapeutics/faq/XHH590 (This link is being provided for information/ educational purposes only.) 06/12/2023 8:4 8 AM EST 06/12/2023 11:28 PM EST Narrative Resulting Agency Comment [id number] Rachel Kirby SOLAR SALES SPECIALIST PATHOLOGY-INTERFACED Final R esult [facility] [address] [place] [address] * EKG (11/15/2018) us Unk Prov [facility] CARDIOVASCULAR-NO INBAS KET RTG Final Result * XRAY CHEST 2 VIEWS PA & LAT (11/14/2018) 11/14/2018 us [facility] GENERAL IMAGING- OTHER Final Result from Last 3 Months or Most Recently Relevant to Health Maintenance Insurance [employer] ROSALIE Care Teams Coating Mixer Relationship Specialty Start Date End Date Rachel Kirby NP PCP - General Internal Medicine 04/19/18
--- OUTSIDE RECORDS SUMMARY | 2025-02-04 15:00 | XMS_ITS | Encounter Summary ---
Author Organization [facility] Address [address] [place] [address] Care Team Providers Care Audit Specialist Name Role Phone Berta Mcnitosh MD Primary Care Provider [phone] Yasmani Cook MD Primary Care Provider Unknown Pcp, Non g Primary Care Provider Unava ilYasmani Roberts MD Primary Care Provider [phone] Yasmani Cook MD Primary Care Provider [phone] [place] WorthRachel NP Primary Care Provider [facility] Unavailable Unavai [facility], [facility] Unavailable U [facility], [facility] Unavailabl e Unavailable Reason for Visit * Reason Comments E-prescribing Refill Request Cyclobenzap rine HCl 5 Encounter Details Date Type Department Care Team (Late st Contact Info) Description 11/04/[address] [facility] [address] [place] [address] Berta Mcintosh MD [facility] [address] [place] [address] E-prescribing Refill Request (Cyclobenzaprine HCl 5) Social [...] 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 [id number] 50-325-40 MG OR TABS * 15 UNITS [...] 30 DAY SUPPLY * 30 1 ??? [id number] 50-325-40 MG OR TABS * 15 UNITS [...] 2 TABLETS DAILY 30 Tab 1 ??? Kelnaawk-Nxzqvdbmi-XM 3.5-67003-3 OT SUSP * 10 UNITS = 9 [...] Description 03/14/2025 3:00 PM EDT Office Visit [facility]. Optometry [address] [place] [address] Juanjose Allen OD [address] [place] [address] est pt exam annual nodm nocl aodv aoir. elig 03/14/2025, 06/14mos EM $0 cp documented as of this encounter Visit Diagnoses Not on filedocumented in this encounter Care Teams Audit Specialist Relationship Specialty Start Date End Date Berta Mcintosh MD [address] [address] PCP - General 04/18/11 12/30/12 Yasmani Cook MD [address] [place] [address] PCP - General Internal Medicine 12/31/12 12/29/14 Unknown Pcp, Non [facility] PCP - General 12/30/14 09/03/15 Yasmani Cook MD [address] [place] [address] PCP - General Internal Medicine 09/04/15 02/28/18 Yasmani Cook MD [address] [place] [address] PCP - General 03/01/18 04/18/18 Rachel Kirby NP PCP - General Internal Medicine 04/19/18 [facility] Health Assistants 07/21/1908/19 [facility] Health Assistants 02/19/23 08/20/23 [facility] Assistants 11/20/23 06/21/24 documented as of this encounter
--- OUTSIDE RECORDS SUMMARY | 2025-02-04 15:00 | XMS_ITS | Encounter Summary ---
Author Organization [facility] Address [address] [place] [address] Care Team Providers Care Third Rigger Name Role Phone Rachel Kirby NP Primary Care Provider [phone] [facility] U navailable [facility], [facility] Unavailabl e Unavailable Reason for Visit * Reason Comments E-prescribing Refill Request Encounter Details Date Type Department Care Team (Late st Contact Info) Description 01/11/2022 Refill [facility] [address] [place] [address] Rachel Kirby NP [address] [place] [address] E-prescribing Refill Request Social History Tobacco Use [...] file Not on file 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 Optometry [address] [place] [phone] Juanjose Allen, JERONIMO [address] [place] [address] est pt exam annual nodm nocl aodv [...] on filedocumented in this encounter Care Teams Third Rigger Relationship Specialty Start Date End Date Rachel Kirby NP PCP - General Internal Medicine 04/19/18 Micah Chiang [facility] Health Assistants 02/19/23 08/20/23 [facility] Health Assistants 11/20/23 06/21/24 documented as of this encounter
--- OUTSIDE RECORDS SUMMARY | 2025-02-04 15:00 | XMS_ITS | Encounter Summary ---
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 Optometry 5 [place] [phone] Juanjose Allen, OD [address] [place] [address] est pt exam annual nodm nocl aodv [...] on filedocumented in this encounter Care Teams Hose Maker Relationship Specialty Start Date End Date Rachel Kirby NP PCP - General Internal Medicine 04/19/18 Micah Chiang [facility] Health Assistants 02/19/23 08/20/23 [facility] Health Assistants 11/20/23 06/21/24 documented as of this encounter
--- OUTSIDE RECORDS SUMMARY | 2025-02-04 15:00 | XMS_ITS | Encounter Summary ---
Author Organization [facility] Address [address] [place] [address] Care Team Providers Care Dairy Laboratory Technician Name Role Phone Rachel Kirby NP Primary Care Provider [phone] Sharif Serrano MD Unavailable [phone] Berta Mcintosh MD Primary Care Provider Yasmani Cook MD Primary Care Provider [phone] Unknown Pcp, Non [facility] Primary Care Provider Unava ilable Yasmani Cook MD Primary Care Provider Yasmani Cook MD Primary Care Provider [phone] Rachel Kirby NP Primary Care Provider [phone] [facility] Unavai [facility], [facility] Unavailable U navailable [facility], [facility] Unavailabl e Unavailable Encounter Details Date Type Department Care Team ([facility] st Contact Info) Description 08/19/2008 Orders Only [facility] Neurology [address] [facility] [address] [place] [address] Heather Tejada CRNP [address] [place] [address] Social History Tobacco Use Types Packs/Day Years [...] 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 Optometry [address] [place] [address] Juanjose Allen, OD [address] [place] [address] est pt exam annual nodm nocl aodv aoir. elig 03/14/2025, 06/14mos EM $0 cp documented as of this encounter Procedures * Due to [place] MiMedia law, this organization might not be sharing negative HIV tests. Procedure Name Priority Date/Time Associated Diagnosis Comments HCG (QUANTITATIVE) (CAN BE USED FOR TUMOR MARKER) Routine 08/19/2008 Chronic Daily Headache documented in this encounter Results * Due to [place] MiMedia law, this organization might not be sharing [...] OR APPROVED BY THE FDA OR THE BI TESTER OF THIS ASSAY. 08/19/2008 08/19/2008 4:4 7 PM EDT us [facility] SAME DAY RESULT Final R esult documented in this encounter Visit Diagnoses Diagnosis Chronic daily headache Headache documented in this encounter Care Teams Dairy Laboratory Technician Relationship Specialty Start Date End Date Rachel Kirby NP [address] [place] [address] PCP - General 05/22/10 04/17/11 Sharif Serrano MD [address] [place] [address] PCP - Backup PCP 06/20/08 04/17/11 Berta Mcintosh MD [facility] [address] [place] [address] PCP - General 04/18/11 12/30/12 Yasmani Cook MD [address] [place] [address] PCP - General Internal Medicine 12/31/12 12/29/14 Unknown Pcp, Non Rmg PCP - General 12/30/14 09/03/15 Yasmani Cook MD [address] [place] [address] PCP - General Internal Medicine 09/04/15 02/28/18 [place] [address] PCP - General 03/01/18 04/18/18 Rachel Kirby NP PCP - General Internal Medicine 04/19/18 [facility] Health Assistants 07/21/1908/19 [facility] 02/19/23 08/20/23 [facility] Health Assistants 11/20/23 06/21/24 documented as of this encounter
--- OUTSIDE RECORDS SUMMARY | 2025-02-04 15:00 | XMS_ITS | Encounter Summary ---
Author Organization [facility] Address [address] [place] [address] Care Team Providers Care Certified Scrub Tech Name Role Phone Rachel Kirby NP Primary Care Provider [facility] U navailable [facility], [facility] Unavailabl e Unavailable Reason for Visit * Reason Comments Medication Problem Encounter Details Date Type Department Care Team ([facility] st Contact Info) Description 12/30/2021 Telephone [facility] [address] [place] [phone] Rachel Kirby NP 4 [place] [address] Medication Problem Social History Tobacco Use Types [...] file Not on file Not on file 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 Calling re: med problem Transferred to nurse documented in this encounter Plan of Treatment Upcoming Encounters Date Type Department Care Team (Late st Contact Info) Description 03/14/2025 3:00 PM EDT Office Visit [facility]. Optometry 5 [place] [address] Juanjose Allen OD 5 [place] [address] est pt exam annual nodm nocl aodv [...] at . Any insurance accepted. Quit smoking resources-[email or web address] documented as of this encounter Visit Diagnoses Not on filedocumented in this encounter Care Teams Certified Scrub Tech Relationship Specialty Start Date End Date Mirta BAUDILIO Ramos PCP - General Internal Medicine 04/19/18 [facility] 02/19/23 08/20/23 [facility] 11/20/23 06/21/24 documented as of this encounter
--- OUTSIDE RECORDS SUMMARY | 2025-02-04 15:00 | XMS_ITS | Encounter Summary ---
Author Organization [facility] Address [address] [place] [address] Care Team Providers Care Tram Driver Name Role Phone Rachel Kirby NP Primary Care Provider [phone] Sharif Serrano MD Unavailable [phone] Berta Mcintosh MD Primary Care Provider Yasmani Cook MD Primary Care Provider [phone] Unknown Pcp, Non [facility] Primary Care Provider Unava ilable Yasmani Cook MD Primary Care Provider Yasmani Cook MD Primary Care Provider Rachel Kirby NP Primary Care Provider [phone] Care, [facility] Unavailable Unavai [facility], [facility] Unavailable U navailable [facility], [facility] Unavailabl e Unavailable Encounter Details Date Type Department Care Team (Late st Contact Info) Description 10/30/2008 Orders Only [facility] [address] [place] [address] Rachel Kirby NP 4 [place] [address] Social History Tobacco Use Types Packs/Day Years [...] 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 Optometry 5 [place] [address] Juanjose Allen OD 5 [place] [address] est pt exam annual nodm nocl aodv aoir. elig 03/14/2025, 06/14mos EM $0 cp documented as of this encounter Procedures * Due to [place] [employer] law, this organization might not be sharing negative HIV tests. Procedure Name Priority Date/Time Associated Diagnosis Comments CULTURE, STREP SCREEN (GROUP A), THROAT Routine 10/30/2008 Pharyngitis documented in this encounter Results * Due to [place] [employer] [address] [employer] law, this organization might not be sharing negative HIV tests. * (ABNORMAL) CULTURE, STREP SCREEN (GROUP A), THROAT (10/30/2008) Result(s) SEE TEXT(A) [facility] Comment: SOURCE: THROAT MODERATE GROWTH OF BETA-HEMOLYTIC STREPTOCOCCUS, NOT GROUP A 10/30/2008 10/30/2008 8:5 7 PM EDT Rachel Kirby NP LABORATORY Final Result Performing Organization Address City/State/[facility] Co de Phone Number [facility] [address] [place] [address] documented in this encounter Visit Diagnoses Diagnosis Pharyngitis Acute pharyngitis documented in this encounter Care Teams Tram Driver Relationship Specialty Start Date End Date Rachel Kirby NP [address] [place] [address] PCP - General 05/22/10 04/17/11 Sharif Serrano MD [address] [place] [address] PCP - Backup PCP 06/20/08 04/17/11 Berta Mcintosh MD [facility] [address] [place] [address] PCP - General 04/18/11 12/30/12 Yasmani Cook MD [address] [place] [address] PCP - General Internal Medicine 12/31/12 12/29/14 Unknown Pcp, Non [facility] PCP - General 12/30/14 09/03/15 Yasmani Cook MD [address] [place] [address] PCP - General Internal Medicine 09/04/15 02/28/18 Yasmani Cook MD [address] [place] [address] PCP - General 03/01/18 04/18/18 Rachel Kirby NP PCP - General Internal Medicine 04/19/18 [facility]istants 07/21/1908/19 [facility] 02/19/23 08/20/23 [facility] 11/20/23 06/21/24 documented as of this encounter
--- OUTSIDE RECORDS SUMMARY | 2025-02-04 15:00 | XMS_ITS | Encounter Summary ---
Author Organization [facility] Address [address] [place] [address] Care Team Providers Care Chipper Operator Name Role Phone Rachel Kirby NP Primary Care Provider [phone] Rachel Kirby AUDITING CLERK Primary Care Provider Ginger Diallo MD Primary Care Provider Sharif Serrano MD Unavailable [phone] Berta Mcintosh MD Primary Care Provider [phone] Yasmani Cook MD Primary Care Provider Unknown Pcp, Non g Primary Care Provider Unava ilable Yasmani Cook MD Primary Care Provider [phone] Yasmani Cook MD Primary Care Provider [phone] Rachel Kirby AUDITING CLERK Primary Care Provider [phone] [facility] Unavailable Unavai [facility], [facility] Unavailabl e Unavailable Encounter Details Date Type Department Care Team (Late st Contact Info) Description 04/10/2008 Orders Only [facility] [address] [place] [address] Rachel Kirby NP [address] [place] [address] Social History Tobacco Use Types Packs/Day Years [...] Visit [facility]. Optometry 5 [place] [address] Juanjose Allen, OD 5 [place] [address] est pt exam annual nodm nocl aodv aoir. elig 03/14/2025, 06/14mos EM $0 cp documented as of this encounter Procedures * Due to [facility] law, this organization might not be sharing negative HIV tests. Procedure Name Priority Date/Time Associated Diagnosis Comments CULTURE, STREP SCREEN (GROUP A), THROAT Routine 04/10/2008 Acute Pharyngitis documented in this encounter Results * Due to [place] [employer] law, this organization might not be sharing negative HIV tests. * CULTURE, STREP SCREEN (GROUP A), THROAT (04/10/2008) Result(s) SEE TEXT Comment: SOURCE: THROAT NO GROUP A STREPTOCOCCI ISOLATED 04/10/2008 04/10/2008 11: 16 PM EST Rachel Kirby NP LABORATORY Final Result documented in this encounter Visit Diagnoses Diagnosis Acute pharyngitis documented in this encounter Care Teams Chipper Operator Relationship Specialty Start Date End Date Rachel Kirby, BAUDILIO [address] [place] [address] PCP - General 05/22/10 04/17/11 Rachel Kirby NP [address] [place] [address] PCP - General 06/19/08 06/19/08 Ginger Diallo MD 4 [place] [address] PCP - General 06/11/07 06/18/08 Sharif Serrano MD 4 [place] [address] PCP - Backup PCP 06/20/08 04/17/11 Berta Mcintosh MD [facility] [address] [place] [id number] PCP - General 04/18/11 12/30/12 Yasmani Cook MD [address] [place] [address] PCP - General Internal Medicine 12/31/12 12/29/14 Unknown Pcp, Non [facility] PCP - General 12/30/14 09/03/15 Yasmani Cook MD [address] [place] [address] PCP - General Internal Medicine 09/04/15 02/28/18 Yasmani Cook MD [address] [place] [address] PCP - General 03/01/18 04/18/18 Rachel Kirby NP PCP - General Internal Medicine 04/19/18 [facility] 07/21/1908/19 [facility] 02/19/23 08/20/23 [facility] Ass[facility] 11/20/23 06/21/24 documented as of this encounter
--- OUTSIDE RECORDS SUMMARY | 2025-02-04 15:00 | XMS_ITS | Encounter Summary ---
Author Organization [facility] Address [address] [place] [address] Care Team Providers Care Public Health Aides Teacher Name Role Phone Rachel Kirby NP Primary Care Provider [phone] Sharif Serrano MD Unavailable [phone] Berta Mcintosh MD Primary Care Provider Yasmani Cook MD Primary Care Provider Unknown Pcp, Non [facility] Primary Care Provider Unava ilable Yasmani Cook MD Primary Care Provider Yasmani Cook MD Primary Care Provider Rachel Kirby NP Primary Care Provider [phone] Care, [facility] Unavailable Unavai [facility], [facility] Unavailable U navailable [facility], [facility] Unavailabl e Unavailable Encounter Details Date Type Department Care Team (Late st Contact Info) Description 08/09/2010 Orders Only [facility] [address] [place] [phone] Rachel Kirby NP 4 [place] [address] Social History Tobacco Use Types Packs/Day Years [...] 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 Optometry [address] [place] [address] Juanjose Allen, OD 5 [place] [address] est pt exam annual nodm nocl aodv aoir. elig 03/14/2025, 06/14mos EM $0 cp documented as of this encounter Procedures * Due to [place] [employer] law, this organization might not be sharing negative HIV tests. Procedure Name Priority Date/Time Associated Diagnosis Comments ARTHRITIS PANEL (ESR/URICACID/RF/MILTON) Routine 08/09/2010 Arthralgia documented in this encounter Results * Due to [place] [employer] law, this organization might not be sharing negative HIV tests. * ARTHRITIS PANEL (ESR/URICACID/RF/MILTON) (08/09/2010) ESR (ERYTHROCYTE SEDIMENTATION RATE) 11 0 - 20 MM/HR [facility] URIC ACID, SERUM 3.0 2.5 - 7.0 MG/DL [facility] RHEUMATOID FACTOR TITER 9 0 - 13 IU/ML [facility] MILTON IFA <1:40 <1:40 [facility] 08/09/2010 08/09/2010 9:5 0 PM EDT us Rachel Kirby LABEL PRINTING MACHINIST LABORATORY Final Result [facility] [address] [place] [address] documented in this encounter Visit Diagnoses Diagnosis Arthralgia Pain in joint, site unspecified documented in this encounter Care Teams Public Health Aides Teacher Relationship Specialty Start Date End Date Rachel Kirby NP [address] [place] [address] PCP - General 05/22/10 04/17/11 Sharif Serrano MD [address] [place] [address] PCP - Backup PCP 06/20/08 04/17/11 Berta Mcintosh MD [address] [address] PCP - General 04/18/11 12/30/12 Yasmani Cook MD [address] [place] [address] PCP - General Internal Medicine 12/31/12 12/29/14 Unknown Pcp, Non [facility] PCP - General 12/30/14 09/03/15 Yasmani Cook MD [address] [place] [address] PCP - General Internal Medicine 09/04/15 02/28/18 Yasmani Cook MD [address] [place] [address] PCP - General 03/01/18 04/18/18 Rachel Kirby NP PCP - General Internal Medicine 04/19/18 Care, [facility] 07/21/1908/19 [facility] 02/19/23 08/20/23 [facility] Assistants 11/20/23 06/21/24 documented as of this encounter
--- OUTSIDE RECORDS SUMMARY | 2025-02-04 15:00 | XMS_ITS | Encounter Summary ---
Author Organization [facility] Address [address] [place] [address] Care Team Providers Care Nuclear Fuels Reclamation Engineer Name Role Phone Rachel Kirby NP Primary Care Provider [phone] Care, [facility] Unavailable Unavai [facility], 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 Optometry [address] [place] [phone] Juanjose Allen, OD [address] [place] [address] est pt exam annual nodm nocl aodv [...] * (ABNORMAL) LAMOTRIGINE (05/04/2018 3:04 PM EST) Pathologist [facility] Lamotrigine 1.9(L) 4.0 - 18.0 mcg/mL [facility] Comment: This test was developed and its analytical performance characteristics have been determined by [employer] [place], [place]. It has not been cleared or approved by the U.S. Food and Drug Administration. This assay has been validated pursuant to the CLIA regulations and is used for clinical purposes. 05/04/2018 3:04 PM EST 05/04/2018 9:47 PM EST Narrative Resulting Agency Comment [id number] [facility] LABORATORY Final Result Performing Organization Address [facility] de Phone Number [facility] [address] [place] [address] * THYROID STIMULATING HORMONE (TSH) WITH FREE T4 REFLEX, SERUM (05/04/2018 3:04 PM EST) Pathologist [facility] TSH 2.06 mIU/L [facility] Comment: Reference Range > or = 20 Years 0.40-4.50 Ranges First trimester 0.26-2.66 Second trimester 0.55-2.73 Third trimester 0.43-2.91 05/04/2018 3:04 PM EST 05/04/2018 9:47 PM EST Narrative Resulting Agency Comment [id number] [facility] LABORATORY Final Result Performing Organization Address City/[facility] Co de Phone Number [facility] [address] [place] [address] * HEMOGLOBIN A1C (05/04/2018 3:04 PM EST) Hemoglobin A1C 5.0 <5.7 % of total [...] diagnosis of diabetes in children. According to [place] Diabetes Association (ADA) guidelines, hemoglobin A1c <7.0% represents optimal control in non- diabetic patients. Different metrics may apply to specific patient populations. Standards of Medical Care in Diabetes(ADA). Estimated Average Glucose 101 mg/dL (calc) [facility] 05/04/2018 3:04 PM EST 05/04/2018 9:47 PM EST Narrative Resulting Agency Comment [id number] [facility] LABORATORY Final Result Performing Organization Address City/State/[facility] Co de Phone Number [facility] [address] [place] [address] * (ABNORMAL) BASIC METABOLIC PANEL WITH (GFR) [...] needs for GFR calculation. Resulting Agency Comment [id number] [facility] LABORATORY Final Result Performing Organization Address [facility] de Phone Number [facility] [address] [place] [address] * (ABNORMAL) LIPID PANEL WITH REFLEX TO DIRECT LDL (05/04/2018 3:04 PM EST) Pathologist [facility] Cholesterol 134 <200 mg/dL [facility] HDL [...] LDL-C. Dani SS et al. PROSPER. 2013;310(19): 4343-7591 (http://education.[employer].Ocelus/faq/DZP418) CHOL/HDL Ratio 3.3 <5.0 (calc) [facility] Cholesterol Non-HDL 93 <130 mg/dL (calc) [facility] Comment: For patients with diabetes plus 1 major ASCVD risk factor, treating to a non-HDL-C goal of <100 mg/dL (LDL-C of <70 mg/dL) is considered a therapeutic option. 05/04/2018 3:04 PM EST 05/04/2018 9:47 PM EST Narrative Resulting Agency Comment [id number] [facility] LABORATORY Final Result Performing Organization Address [facility] Co de Phone Number [facility] [address] [place] [address] documented in this encounter Visit Diagnoses Diagnosis Screening for lipid disorders Screening for diabetes mellitus Screening for thyroid disorder Bipolar disorder, current episode mixed, mild (HCC) Bipolar I disorder, most recent episode (or current) mixed, mild documented in this encounter Care Teams Nuclear Fuels Reclamation Engineer Relationship Specialty Start Date End Date Rachel Kirby NP PCP - General Internal Medicine 04/19/18 Fabien [facility]istants 07/21/1908/19 [facility] 02/19/23 08/20/23 [facility]e [facility] 11/20/23 06/21/24 documented as of this encounter
--- OUTSIDE RECORDS SUMMARY | 2025-02-04 15:00 | XMS_ITS | Encounter Summary ---
Author Organization [facility] Address [address] [place] [address] Care Team Providers Care Ancillary Services Manager Name Role Phone Rachel Kirby NP Primary Care Provider [phone] [facility] U navailable [facility], [facility] Unavailabl e Unavailable Reason for Visit * Reason Comments Letter/form Request Encounter Details Date Type Department Care Team ([facility] st Contact Info) Description 09/03/2021 Telephone [facility] 4 [place] [phone] Rachel Kirby NP [address] [place] [address] Letter/form Request Social History Tobacco Use Types [...] file Not on file 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 Informed patient that this could take a minimum of 3 - 5 business days to complete. This request was sent to rosa folder . documented in this encounter Plan of Treatment Upcoming Encounters Date Type Department Care Team (Late st Contact Info) Description 03/14/2025 3:00 PM EDT Office Visit [facility] [address] [place] [address] Juanjose Allen OD 5 [place] [address] est pt exam annual nodm nocl aodv [...] at . Any insurance accepted. Quit smoking resources-[email or web address] documented as of this encounter Visit Diagnoses Not on filedocumented in this encounter Care Teams Ancillary Services Manager Relationship Specialty Start Date End Date Rachel Kirby NP PCP - General Internal Medicine 04/19/18 Micah Chiang [facility]istants 02/19/23 08/20/23 [facility] 11/20/23 06/21/24 documented as of this encounter
--- OUTSIDE RECORDS SUMMARY | 2025-02-04 15:00 | XMS_ITS | Encounter Summary ---
Author Organization [facility] Address [address] [place] [address] Care Team Providers Care Certified Art Therapist Name Role Phone Rachel Kirby NP Primary Care Provider [phone] Sharif Serrano MD Unavailable [phone] Berta Mcintosh MD Primary Care Provider Yasmani Cook MD Primary Care Provider [phone] Unknown Pcp, Non [facility] Primary Care Provider Unava ilable Yasmani Cook MD Primary Care Provider Yasmani Cook MD Primary Care Provider [phone] Rachel Kirby NP Primary Care Provider [phone] Care, [facility] Unavailable Unavai 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 Optometry [address] [place] [address] Juanjose Allen OD 5 [place] [address] est pt exam annual nodm nocl aodv aoir. elig 03/14/2025, 06/14mos EM $0 cp documented as of this encounter Procedures * Due to [place] [employer] law, this organization might not be sharing negative HIV tests. Procedure Name Priority Date/Time Associated Diagnosis Comments CULTURE, STREP SCREEN (GROUP A), THROAT Routine 10/28/2008 Pharyngitis documented in this encounter Results * Due to [place] [employer] law, this organization might not be sharing negative HIV tests. * CULTURE, STREP SCREEN (GROUP A), THROAT (10/28/2008) Result(s) SEE TEXT [facility] Comment: SOURCE: THROAT NO GROUP A STREPTOCOCCI ISOLATED 10/28/2008 10/28/2008 10: 13 PM EDT Rachel Kirby NP LABORATORY Final Result Performing Organization Address City/State/[facility] Co de Phone Number [facility] [address] [place] [address] documented in this encounter Visit Diagnoses Diagnosis Pharyngitis Acute pharyngitis documented in this encounter Care Teams Certified Art Therapist Relationship Specialty Start Date End Date Rachel Kirby NP [address] [place] [address] PCP - General 05/22/10 04/17/11 Sharif Serrano MD [address] [place] [address] PCP - Backup PCP 06/20/08 04/17/11 Berta Mcintosh MD [address] [address] PCP - General 04/18/11 12/30/12 Yasmani Cook MD [address] [place] [address] PCP - General Internal Medicine 12/31/12 12/29/14 Unknown Pcp, Non [facility] PCP - General 12/30/14 09/03/15 Yasmani Cook MD [address] [place] [address] PCP - General Internal Medicine 09/04/15 02/28/18 Yasmani Cook MD [address] [place] [address] PCP - General 03/01/18 04/18/18 Rachel Kirby NP PCP - General Internal Medicine 04/19/18 [facility] Assistants 07/21/1908/19 [facility] Assistants 02/19/23 08/20/23 [facility] 11/20/23 06/21/24 documented as of this encounter
--- OUTSIDE RECORDS SUMMARY | 2025-02-04 15:00 | XMS_ITS | Encounter Summary ---
Author Organization [facility] Address [address] [place] [address] Care Team Providers Care Retail Account Executive Name Role Phone Rachel Kirby NP Primary Care Provider [facility] U navailable [facility], [facility] Unavailabl e Unavailable Reason for Visit * Reason Comments E-prescribing Refill Request Encounter Details Date Type Department Care Team ([facility] st Contact Info) Description 08/07/2020 Refill [facility] [address] [place] [phone] Yuli Da Silva PA 5 [place] [address] E-prescribing Refill Request Social History Tobacco Use [...] Description 03/14/2025 3:00 PM EDT Office Visit [facility]. Optometry [address] [place] [phone] Juanjose Allen, JERONIMO [address] [place] [address] est pt exam annual nodm nocl aodv aoir. elig 03/14/2025, 06/14mos EM $0 cp documented as of this encounter Goals Goal Patient Goal Type Associated Problems Recent Progress Patient-Stated? Author Quit smoking / using tobacco Lifestyle Tiera Guthrie, JOHN Note: Smoking can cause cancer, heart [...] at . Any insurance accepted. Quit smoking resources-[email or web address] documented as of this encounter Visit Diagnoses Not on filedocumented in this encounter Care Teams Retail Account Executive Relationship Specialty Start Date End Date Rachel Kirby NP PCP - General Internal Medicine 04/19/18 Micah Chiang [facility] Health Assistants 02/19/23 08/20/23 [facility] Health Assistants 11/20/23 06/21/24 documented as of this encounter
--- OUTSIDE RECORDS SUMMARY | 2025-02-04 15:00 | XMS_ITS | Encounter Summary ---
Author Organization [facility] Address [address] [place] [address] Care Team Providers Care Cold Roll Packer Sheet Iron Name Role Phone Rachel Kirby NP Primary Care Provider [phone] Sharif Serrano MD Unavailable [phone] Berta Mcintosh MD Primary Care Provider Yasmani Cook MD Primary Care Provider Unknown Pcp, Non [facility] Primary Care Provider Unava ilable Yasmani Cook MD Primary Care Provider [phone] Yasmani Cook MD Primary Care Provider Rachel Kirby NP Primary Care Provider [phone] Care, [facility] Unavailable Unavai [facility], 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 Optometry 5 [place] [address] Juanjose Allen, OD 5 [place] [address] est pt exam annual nodm nocl aodv aoir. elig 03/14/2025, 06/14mos EM $0 cp documented as of this encounter Procedures * Due to [place] [employer] law, this organization might not be sharing negative HIV tests. Procedure Name Priority Date/Time Associated Diagnosis Comments CULTURE, STREP SCREEN (GROUP A), THROAT Routine 07/01/2008 Acute Pharyngitis documented in this encounter Results * Due to [place] [employer] law, this organization might not be sharing negative HIV tests. * CULTURE, STREP SCREEN (GROUP A), THROAT (07/01/2008) Result(s) SEE TEXT Comment: SOURCE: THROAT NO GROUP A STREPTOCOCCI ISOLATED 07/01/2008 07/01/2008 7:3 8 PM EST Rachel Kirby NP LABORATORY Final Result documented in this encounter Visit Diagnoses Diagnosis Acute pharyngitis documented in this encounter Care Teams Cold Roll Packer Sheet Iron Relationship Specialty Start Date End Date Rachel Kirby NP [address] [place] [address] PCP - General 05/22/10 04/17/11 Sharif Serrano MD [address] [place] [address] PCP - Backup PCP 06/20/08 04/17/11 Berta Mcintosh MD [facility] [address] [place] [address] PCP - General 04/18/11 12/30/12 Yasmani Cook MD [address] [place] [address] PCP - General Internal Medicine 12/31/12 12/29/14 Unknown Pcp, Non [facility] PCP - General 12/30/14 09/03/15 Yasmani Cook MD [address] [place] [address] PCP - General Internal Medicine 09/04/15 02/28/18 Yasmani Cook MD [address] [place] [address] PCP - General 03/01/18 04/18/18 Rachel Kirby NP PCP - General Internal Medicine 04/19/18 [facility] Health Assistants 07/21/1908/19 [facility] Health Assistants 02/19/23 08/20/23 [facility] 11/20/23 06/21/24 documented as of this encounter
--- OUTSIDE RECORDS SUMMARY | 2025-02-04 15:00 | XMS_ITS | Encounter Summary ---
Author Organization [facility] Address [address] [place] [address] Care Team Providers Care Health Occupations Teacher Name Role Phone Rachel Kirby NP Primary Care Provider [facility] Unavailable U navailable [facility] Unavailabl e Unavailable Encounter Details Date Type Department Care Team (Late st Contact Info) Description 06/12/2023 Orders Only [facility] 4 [place] [address] Rachel Kirby NP 4 [place] [address] Social History Tobacco Use Types Packs/Day Years [...] / family Once a week 02/04/2022 Attend muslim services Never 2021 Club Membership No 02/04/2022 [...] Description 03/14/2025 3:00 PM EDT Office Visit [facility] Optometry 5 [place] [address] Juanjose Allen OD 5 [place] [address] est pt exam annual nodm nocl aodv [...] at . Any insurance accepted. Quit smoking resources-[email or web address] documented as of this encounter Procedures * Due to [place] [employer] law, this organization might not be sharing negative HIV tests. Procedure Name Priority Date/Time Associated Diagnosis Comments THINPREP TIS PAP, HPV MRNA E6/E7 RFX HPV 16,18/45, CT/NG Routine 06/12/2023 8:48 AM EST Screening for malignant neoplasm of cervix documented in this encounter Results * Due to [place] [employer] law, this organization might not be sharing negative HIV tests. * THINPREP TIS PAP, HPV MRNA E6/E7 RFX HPV 16,18/45, CT/NG (06/12/2023 8:48 AM EST) Clinical information None given [facility] Date last menstrual period 05/08/2023 [facility] Date of previous PAP smear 05/14/2008 [facility] Date of previous biopsy NONE GIVEN [facility] Specimen source (Cvx/Vag) None given [facility] Statement of Adequacy (Cvx/Vag) Satisfactory for evaluation. Endocervical/segal sformation zone component present. [facility] Cytology, Pap Smear Cytology Results: Negative for intraepithelial lesion or malignancy. [facility] Cytology study comment (Cvx/Vag) This Pap test has been evaluated with computer assisted technology. [facility] Beer Cooler (Cvx/Vag) EXJ, CT(ASCP) CT Screening Location: [place] [address] [facility] COMMENT SEE NOTE [facility] Comment: EXPLANATORY NOTE: The Pap is a [...] HPV MRNA E6/E7 Not Detected Not Detected [facility] Comment: Methodology: Head Rose Grower-Mediated Amplification This assay detects E6/E7 viral messenger RNA (mRNA) from 14 high-risk HPV types (16,18,31,33,35,39,45,51,52,56,58,59,66,68). Cervical sources are required for HPV testing. If a vaginal source from a patient who has had a total hysterectomy with removal of cervix was submitted, please contact the testing laboratory for alternative testing options. For additional information, please refer to http://A and [employer] Service.Bujbu/faq/BMC873a8 (This link if provided for information/ educational purposes only.) Chlamydia trachomatis rRNA NOT DETECTED NOT DETECTED [facility] Neisseria Gonorrhoeae rRNA NOT DETECTED NOT DETECTED [facility] COMMENT SEE NOTE [facility] Comment: The analytical performance characteristics of this assay, when used to test SurePath(TM) specimens have been determined by [employer]. The modifications have not been cleared or approved by the FDA. This assay has been validated pursuant to the CLIA regulations and is used for clinical purposes. For additional information, please refer to https://[employer] Service.Bujbu/faq/YED179 (This link is being provided for information/ educational purposes only.) 06/12/2023 8:48 AM EST 06/12/2023 11:28 PM EST Narrative Resulting Agency Comment [id number] Rachel Kirby NP PATHOLOGY-INTERFACED Final R esult JACI [address] [place] [address] documented in this encounter Visit Diagnoses Diagnosis Screening for malignant neoplasm of cervix Screening for malignant neoplasm of the cervix documented in this encounter Care Teams Health Occupations Teacher Relationship Specialty Start Date End Date Rachel Kirby NP PCP - General Internal Medicine 04/19/18 Micah Chiang [facility] Health Assistants 02/19/23 08/20/23 [facility] Ass[facility] 11/20/23 06/21/24 documented as of this encounter
--- OUTSIDE RECORDS SUMMARY | 2025-02-04 15:00 | XMS_ITS | Encounter Summary ---
Author Organization [facility] Address [address] [place] [address] Care Team Providers Care Broke Beater Operator Name Role Phone Rachel Kirby NP Primary Care Provider Rachel Kirby CONTENT COORDINATOR Primary Care Provider Ginger Diallo MD Primary Care Provider [phone] Sharif Serrano MD Unavailable [phone] Berta Mcintosh MD Primary Care Provider Yasmani Cook MD Primary Care Provider Unknown Pcp, Non g Primary Care Provider Unava ilable Yasmani Cook MD Primary Care Provider [phone] Yasmani Cook MD Primary Care Provider [phone] Rachel Kirby CONTENT COORDINATOR Primary Care Provider [phone] [facility] Unavailable Unavai [place], [facility] Unavailabl e Unavailable Encounter Details Date Type Department Care Team (Late st Contact Info) Description 04/22/2008 Orders Only [facility] 5 [address] [place] [address] Ginger Diallo MD [address] [place] [address] Social History Tobacco Use Types Packs/Day Years [...] Description 03/14/2025 3:00 PM EDT Office Visit [facility] Optometry 5 [place] [address] Juanjose Allen, OD 5 [place] [address] est pt exam annual nodm nocl aodv aoir. elig 03/14/2025, 06/14mos EM $0 cp documented as of this encounter Procedures * Due to [place] state law, this organization might not be sharing negative HIV tests. Procedure Name Priority Date/Time Associated Diagnosis Comments BASIC METABOLIC PANEL Routine 04/22/2008 Pallor CBC 5 PART DIFF Routine 04/22/2008 [place] THYROID CASCADE Routine 04/22/2008 [place] IRON/TIBC Routine 04/22/2008 Pallor FOLATE (FOLIC ACID) Routine 04/22/2008 Pall[place] FERRITIN Routine 04/22/2008 [place] VITAMIN B12 Routine 04/22/2008 Pallor documented in this encounter Results * Due to [place] state law, this organization might not be sharing negative HIV tests. * VITAMIN B12 (04/22/2008) VITB12 258 200 - 1100 PG/ML 04/22/2008 04/22/2008 6:1 6 PM EST Result Mac Diallo MD LABORATORY Final Result * IRON/TIBC (04/22/2008) IRON 87 35 - 175 UG/DL TIBC (IRON BINDING CAPACITY) 362 250 - 450 MCG/DL IRON SATURATION % 24 15 - 50 % 04/22/2008 04/22/2008 6:1 6 PM EST Result Mac Diallo MD LABORATORY Final Result * FOLATE (FOLIC ACID) (04/22/2008) FOLATE 13.1 3.4 OR ABOVE NG/ML 04/22/2008 04/22/2008 6:1 6 PM EST Result Mac Diallo MD LABORATORY Final Result * FERRITIN (04/22/2008) FERRITIN 29 10 - 300 NG/ML 04/22/2008 04/22/2008 6:1 6 PM EST Result Mac Diallo MD LABORATORY Final Result * THYROID CASCADE (04/22/2008) TSH, THYROTROPIN 1.87 0.40 - 4.50 UIU/ML 04/22/2008 04/22/2008 6:1 6 PM EST Result Mac Diallo MD LABORATORY Final Result * CBC 5 PART DIFF (04/22/2008) WHITE BLOOD COUNT 8.2 3.8 - 10.8 [...] MMOL/L 04/22/2008 04/22/2008 6:1 6 PM EST Ginger Diallo MD LAB SAME DAY RESULT Final Re sult documented in this encounter Visit Diagnoses Diagnosis Pallor documented in this encounter Care Teams Broke Beater Operator Relationship Specialty Start Date End Date Rachel Kirby NP [address] [place] [address] PCP - General 05/22/10 04/17/11 Rachel Kibry NP [address] [place] [address] PCP - General 06/19/08 06/19/08 Ginger Diallo MD [address] [place] [address] PCP - General 06/11/07 06/18/08 Sharif Serrano MD [address] [place] [address] PCP - Backup PCP 06/20/08 04/17/11 Berta Mcintosh MD [facility] [address] [place] [address] PCP - General 04/18/11 12/30/12 Yasmani Cook MD [address] [place] [address] PCP - General Internal Medicine 12/31/12 12/29/14 Unknown Pcp, Non [facility] PCP - General 12/30/14 09/03/15 Yasmani Cook MD [address] [place] [address] PCP - General Internal Medicine 09/04/15 02/28/18 Yasmani Cook MD [address] [place] [address] PCP - General 03/01/18 04/18/18 [place] BridgeRachel NP PCP - General Internal Medicine 04/19/18 [facility] Health Assistants 07/21/1908/19 [facility] 02/19/23 08/20/23 [facility] Health Assistants 11/20/23 06/21/24 documented as of this encounter
--- OUTSIDE RECORDS SUMMARY | 2025-02-04 15:00 | XMS_ITS | Encounter Summary ---
Author Organization [facility] Address [address] [place] [address] Care Team Providers Care Senior Designer Name Role Phone Rachel Kirby NP Primary Care Provider [phone] [facility] Unavailable U navailable [facility], [facility] Unavailabl e Unavailable Encounter Details Date Type Department Care Team (Late st Contact Info) Description 06/09/2023 Orders Only [facility] 4 [place] [address] Rachel Kirby NP [address] [place] [address] Social History Tobacco Use Types Packs/Day Years [...] / family Once a week 02/04/2022 Attend nondenominational services Never 2021 Club Membership No 02/04/2022 [...] Description 03/14/2025 3:00 PM EDT Office Visit [facility] 5 [place] [address] Juanjose Allen OD 5 [place] [address] est pt exam annual nodm nocl aodv [...] at . Any insurance accepted. Quit smoking resources-[email or web address] documented as of this encounter Procedures * Due to [facility] law, this organization might not be [...] in this encounter Results * Due to [place] [employer] law, this organization might not be sharing [...] diagnosis of diabetes in children. According to [place] Diabetes Association (ADA) guidelines, hemoglobin A1c <7.0% represents optimal control in non- diabetic patients. Different metrics may apply to specific patient populations. Standards of Medical Care in Diabetes(ADA). Estimated Average Glucose 119 mg/dL (calc) [facility] 06/09/2023 4:14 PM EST 06/10/2023 12:07 AM EST Narrative Resulting Agency Comment [id number] Rachel Kirby LABORATORY Final Result Performing Organization Address City/State/[facility] Co de Phone Number [facility] [address] [place] [address] * (ABNORMAL) LIPID PANEL WITH REFLEX TO [...] LDL-C. Dani SS et al. PROSPER. 2013;310(19): 5675-7955 (http://education.Unreal Brands/faq/YWY306) CHOL/HDL Ratio 4.1 <5.0 (calc) [facility] Cholesterol Non-HDL 147(H) <130 mg/dL (calc) [facility] Comment: For patients with diabetes plus 1 major ASCVD risk factor, treating to a non-HDL-C goal of <100 mg/dL (LDL-C of <70 mg/dL) is considered a therapeutic option. 06/09/2023 4:14 PM EST 06/10/2023 12:07 AM EST Narrative Resulting Agency Comment [id number] [facility] LABORATORY Final Result Performing Organization Address [facility] Co de Phone Number [facility] [address] [place] [address] * THYROID STIMULATING HORMONE (TSH) WITH FREE T4 REFLEX, SERUM (06/09/2023 4:14 PM EST) TSH 2.05 mIU/L [facility] Comment: Reference Range > or = 20 Years 0.40-4.50 Ranges First trimester 0.26-2.66 Second trimester 0.55-2.73 Third trimester 0.43-2.91 06/09/2023 4:14 PM EST 06/10/2023 12:07 AM EST Narrative Resulting Agency Comment [id number] [facility] LABORATORY Final Result Performing Organization Address [facility] de Phone Number [facility] [address] [place] [address] * HEPATIC FUNCTION PANEL (ALT,AST,ALK PH,BILI'S,TP,ALB) (06/09/2023 4:14 PM EST) Protein Total (Serum) 7.4 6.1 - 8.1 [...] 12:07 AM EST Narrative Resulting Agency Comment [id number] [facility] LABORATORY Final Result Performing Organization Address [facility] de Phone Number [facility] [address] [place] [address] * BASIC METABOLIC PANEL WITH (GFR) (06/09/2023 4:14 PM EST) Pathologist [facility] Glucose 78 65 - 99 mg/dL [facility] Comment:Fasting reference in terval Urea Nitrogen Blood (BUN) 17 7 - 25 mg/dL [facility] Creatinine 0.77 0.50 - 0.97 mg/dL [facility] EGFR 101 > OR = 60 mL/min/1. 73m2 [facility] BUN/Creatinine Ratio SEE NOTE: 6 - 22 (calc) [facility] Comment: Not Reported: BUN and Creatinine are within reference range. Sodium 140 135 - 146 [...] needs for GFR calculation. Resulting Agency Comment [id number] [facility] LABORATORY Final Result Performing Organization Address [facility] Co de Phone Number [facility] [address] [place] [address] * (ABNORMAL) HEPATITIS C VIRAL RNA, QUANTITATIVE REAL-TIME PCR (06/09/2023 4:14 PM EST) Hepatitis C virus RNA [id number]( H) NOT DETECTED IU/mL [facility] Hepatitis C virus RNA - Log 6.81(H) NOT DETECTED Log IU/mL [facility] Comment: This test was performed using Real-Time Polymerase Chain Reaction. Reportable Range: 15 IU/mL to 100,000,000 IU/mL (1.18 Log IU/mL to 8.00 Log IU/mL). The analytical performance characteristics of this assay have been determined by [employer]. The modifications have not been cleared or approved by the FDA. This assay has been validated pursuant to the CLIA regulations and is used for clinical purposes. For more information on this test, go to: http://education.Solutionary/faq/LTG34n8 (This link is being provided for informational/ educational purposes only.) 06/09/2023 4:14 PM EST 06/10/2023 12:07 AM EST Narrative Resulting Agency Comment [id number] Rachel Kirby NP LABORATORY Final Result Performing Organization Address City/[facility] Phone Number [facility] [address] [place] [address] documented in this encounter Visit Diagnoses Diagnosis Hepatitis C antibody positive in blood Screening for diabetes mellitus Screening for lipid disorders Screening for thyroid disorder documented in this encounter Care Teams Senior Designer Relationship Specialty Start Date End Date Rachel Kirby NP PCP - General Internal Medicine 04/19/18 [facility] 02/19/23 08/20/23 [facility] Health Assistants 11/20/23 06/21/24 documented as of this encounter
--- OUTSIDE RECORDS SUMMARY | 2025-02-04 15:00 | XMS_ITS | Encounter Summary ---
Author Organization [facility] Address [address] [place] [address] Care Team Providers Care Halfway House Counselor Name Role Phone Rachel Kirby NP Primary Care Provider [phone] [facility] U navailable [facility], [facility] Unavailabl e Unavailable Reason for Visit * Reason Comments E-prescribing Refill Request Encounter Details Date Type Department Care Team ([facility] st Contact Info) Description 06/17/2022 Refill [facility] 4 [place] [address] Rachel Kirby NP 4 [place] [address] E-prescribing Refill Request Social History Tobacco Use [...] file Not on file Not on file 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 Optometry 5 [place] [address] Juanjose Allen, JERONIMO [address] [place] [address] est pt exam annual nodm nocl aodv [...] at . Any insurance accepted. Quit smoking resources-[email or web address] documented as of this encounter Visit Diagnoses Not on filedocumented in this encounter Care Teams Halfway House Counselor Relationship Specialty Start Date End Date Rachel Kirby NP PCP - General Internal Medicine 04/19/18 Micah Chiang [facility] Health Assistants 02/19/23 08/20/23 [facility] Health Assistants 11/20/23 06/21/24 documented as of this encounter
--- OUTSIDE RECORDS SUMMARY | 2025-02-04 15:00 | XMS_ITS | Encounter Summary ---
Author Organization [facility] Address [address] [place] [address] Care Team Providers Care Hospital Wellness Coordinator Name Role Phone Berta Mcintosh MD Primary Care Provider [phone] Yasmani Cook MD Primary Care Provider [phone] Unknown Pcp, Non g Primary Care Provider Unava ilYasmani Roberts MD Primary Care Provider [phone] Yasmani Cook MD Primary Care Provider MirtaRachel darby NP Primary Care Provider [facility] Unavailable Unavai [facility] Unavailable 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 Optometry [address] [place] [address] Juanjose Allen, OD [address] [place] [address] est pt exam annual nodm nocl aodv aoir. elig 03/14/2025, 06/14mos EM $0 cp documented as of this encounter Procedures * Due to [place] [employer] law, this organization might not be sharing negative HIV tests. Procedure Name Priority Date/Time Associated Diagnosis Comments QUANTIFERON(R)-TB GOLD Routine 07/02/2012 3:21 PM EST Screening examination for pulmonary tuberculosis documented in this encounter Results * Due to [place] [employer] law, this organization might not be sharing negative HIV tests. * QUANTIFERON(R)-TB GOLD (07/02/2012 3:21 PM EST) Quantiferon(R) - TB Gold NEGATIVE NEGATIVE [facility] Comment: {QUANTIFERON(R)-TB GOLD {[id number]) Negative test result. M. tuberculosis complex infection unlikely. TB1 0.04 IU/mL [facility] Comment:{NIL {[id number]) Mycobacterium tuberculosis tuberculin stimulated gamma interferon/Mitoge n stimulated gamma interferon (Blood^control) 8.30 IU/mL [facility] Comment:{MITOGEN-NIL {[id number]) Mycobacterium tuberculosis tuberculin stimulated gamma interferon^correc willa for background 0.07 IU/mL [facility] Comment: {TB-NIL {[id number]) The Nil tube value is used to [...] IU/mL. For additional information, please refer to http://education.[employer].LIFT12/faq/QFT (This link is being provided for informational/ educational purposes only.) 07/02/2012 3:21 PM EST 07/02/2012 9:50 PM EST Narrative Resulting Agency Comment [id number] Berta Mcintosh MD LABORATORY Final Result Performing Organization Address City/State/[facility] de Phone Number [facility] [address] [place] [address] documented in this encounter Visit Diagnoses Diagnosis Screening examination for pulmonary tuberculosis documented in this encounter Care Teams Hospital Wellness Coordinator Relationship Specialty Start Date End Date Berta Mcintosh MD [facility] [address] [place] [id number] PCP - General 04/18/11 12/30/12 Yasmani Cook MD [address] [place] [address] PCP - General Internal Medicine 12/31/12 12/29/14 Unknown Pcp, Non Rmg PCP - General 12/30/14 09/03/15 Yasmani Cook MD [address] [place] [address] PCP - General Internal Medicine 09/04/15 02/28/18 Yasmani Cook MD [address] [place] [address] PCP - General 03/01/18 04/18/18 Rachel Kirby NP PCP - General Internal Medicine 04/19/18 [facility] 07/21/1908/19 [facility] 06/21[facility]24 documented as of this encounter
== END 2025-02-04 11:03 | disposition home or self-care (01) ==
LOC: HO.HOSX 11:02
DX: S52.92XA Unspecified fracture of left forearm, initial encounter for closed fracture (principal); M25.522 Pain in left elbow; R20.0 Anesthesia of skin; R20.2 Paresthesia of skin; Z79.899 Other long term (current) drug therapy; X58.XXXA Exposure to other specified factors, initial encounter
CPT/HCPCS: 73080; 73090; 99212

== ENCOUNTER 2025-02-04 13:33 | Outpatient (AMB) | payer MEDICAID, SELFPAY ==
--- NOTE | 2025-02-04 13:45 | A.OFFVIS_ITS ---
Vital Signs 02/04/25 13:46 Height 5 ft 3 in Weight 170 lb BMI 30.1 Intake Visit Reasons: ED f/u- LT elbow pain Intake Note: Janet is a 39 year old right hand dominant female, new patient, who presents today for an ED Follow Up after presenting on [facility] ED on 10/29/24 complaining of Left Elbow Pain ongoing for months . At the ED, she was given a prescription for Naproxen, Tylenol, and Lidocaine Patches. Today, patient complains of pain from the elbow down the ulnar aspect of the wrist. She reports previous ulna surgery with some screws about 14 years ago. She complains of daily, constant, numbness and tingling on the 3rd, 4th, and 5th digits. Patient also questions why her 4th and 5th fingers are bent. She is currently taking Tylenol and Gabapentin with some relief. Allergies No Known Allergies Allergy (Verified 02/04/25 13:53) HPI HPI ED f/u- LT elbow pain: Details: Janet is a 39 year old right hand dominant female, new patient, who presents today for an ED Follow Up after presenting on [facility] ED on 10/29/24 complaining of Left Elbow Pain ongoing for months . At the ED, she was given a prescription for Naproxen, Tylenol, and Lidocaine Patches. Today, patient complains of pain from the elbow down the ulnar aspect of the wrist. She reports previous ulna surgery with some screws about 14 years ago. She complains of daily, constant, numbness and tingling on the 3rd, 4th, and 5th digits. Patient also questions why her 4th and 5th fingers are bent. She is currently taking Tylenol and Gabapentin with some relief. [facility] Surgical History (Updated 02/04/25 @ 13:49 by HARPER Alicea) History of elbow surgery Social History (Updated 02/04/25 @ 13:55 by HARPER Alicea) Housing: Homeless Housing Other:: She is staying at a assisted Alcohol intake: current Alcohol intake frequency: holidays/special occasions only Comment: last drink ~ 5 years ago Patient Tobacco Use Status: Current everyday Tobacco user Current occupational status: unemployed Current occupation: rt handed Review of Systems Const All systems reviewed & are unremarkable except as noted in HPI and below Physical Exam Vital Signs: BMI result Body Mass Index 30.1 Extrem Other: Neuro: Decreased sensation in the ulnar nerve distribution of the left hand. Normal sensation to all other digits in the left hand today. Normal sensation in the tips of all digits of the right hand today. No thenar or intrinsic wasting. There is starting to be a slight claw deformity noted of the small finger of the left hand Good APB muscle firing and good finger cross. Vascular: Capillary refill brisk. ROM: Patient can make a fist and extend all their digits. Skin: No lacerations or abrasions noted. General: No ecchymosis. No erythema or evidence of infection. Results Reviewed Results Reviewed: X-rays obtained in the office today and independently reviewed by me, Tony Barrett PA-C, demonstrate status post ORIF of left radial head with no evidence of hardware complication. Assessment & Plan Assessment & Plan (1) Numbness and tingling in left hand: Code(s): R20.0 - Anesthesia of skin; R20.2 - Paresthesia of skin Category: Medical Plan 1. Numbness, tingling, pain of left hand radiate into the left elbow Symptoms constant, daily, worse at night Patient is educated about this condition Patient is educated about the typical diagnostic and treatment course At this time, patient is referred for EMG and nerve conduction study to assess the health of the nerves of the left upper extremity Patient is educated that her symptoms are consistent with potential cubital tunnel syndrome, and if he EMG and nerve conduction study does show cubital tunnel the recommended treatment is surgical intervention Patient will follow-up after EMG and nerve conduction study for results review and discussion of further treatment options if indicated, sooner with any acute concerns Orders: Orders XR elbow LT min 3V 02/04/25 M25.522 - Pain in left elbow NE electromyogram (EMG) 02/04/25 R20.0 - Anesthesia of skin, R20.2 - Paresthesia of skin NE nerve conduction velocity 02/04/25 R20.0 - Anesthesia of skin, R20.2 - Paresthesia of skin Medications: New ibuprofen 200 mg PO Q8H 20 tabs 0RF Discontinued acetaminophen Discontinued Reason: Patient no longer taking 650 mg (2 x 325 mg) PO Q8H PRN 30 caps 0RF fever or pain amoxicillin-pot clavulanate 875-125 mg Discontinued Reason: Patient no longer taking 1 tab PO Q12H 7 days 14 tabs 0RF doxycycline hyclate Discontinued Reason: Patient no longer taking 100 mg PO Q12H 7 days 14 tabs 0RF mupirocin 2% Discontinued Reason: Patient no longer taking 1 appl topical TID 15 grams 0RF ibuprofen Discontinued Reason: Patient no longer taking 600 mg PO Q6H PRN 30 tabs 0RF pain naproxen Discontinued Reason: Patient no longer taking 500 mg PO BID 10 days PRN 20 tabs 0RF pain Coding Level of Care Code New Pt Level 3 (91481) Diagnoses Numbness and tingling in left hand R20.0; R20.2
[2025-02-04 13:46] VITALS: BMI 30.1
== END 2025-02-04 14:21 | disposition home or self-care (01) ==
DX: R20.0 Anesthesia of skin (principal); R20.2 Paresthesia of skin
CPT/HCPCS: 99203

== ENCOUNTER → 2025-02-04 13:36 | Outpatient (BNV) | payer MEDICAID, SELFPAY | PROVIDERS: Visit Provider Radiology Diagnostic Radiology | DX: M19.022 Primary osteoarthritis, left elbow (principal); M79.632 Pain in left forearm | CPT/HCPCS: 73080; 73090 ==

== ENCOUNTER 2025-04-07 09:12 | Outpatient (REF) | payer MEDICAID, SELFPAY ==
--- NOTE | ~2025-04-07 | XR_ITS ---
EXAMINATION: X-ray bilateral knees CLINICAL INFORMATION: Pain COMPARISON: None TECHNIQUE: AP bilateral knees one view. Bilateral knees each 2 views. FINDINGS: Right knee: Mild medial compartment joint space narrowing. No acute fracture or dislocation. No effusion. No suspicious bony lesions. No abnormal soft tissue constipation. Left knee: Mild medial compartment joint space narrowing. No acute fracture or dislocation. No suspicious bony lesion. Suspected small-moderate joint effusion. No abnormal soft tissue calcification. XR/XR knee RT 3V IMPRESSION: Right knee: Mild arthritis Left knee: Mild arthritis Suspected small-moderate joint effusion. Electronically signed by: Peter Wong MD 04/08/2025 07:50 AM EST
--- NOTE | ~2025-04-07 | XR_ITS ---
EXAMINATION: X-ray bilateral knees CLINICAL INFORMATION: Pain COMPARISON: None TECHNIQUE: AP bilateral knees one view. Bilateral knees each 2 views. FINDINGS: Right knee: Mild medial compartment joint space narrowing. No acute fracture or dislocation. No effusion. No suspicious bony lesions. No abnormal soft tissue constipation. Left knee: Mild medial compartment joint space narrowing. No acute fracture or dislocation. No suspicious bony lesion. Suspected small-moderate joint effusion. No abnormal soft tissue calcification. XR/XR knee LT 3V IMPRESSION: Right knee: Mild arthritis Left knee: Mild arthritis Suspected small-moderate joint effusion. Electronically signed by: Peter Wong MD 04/08/2025 07:50 AM EST
== END 2025-04-07 09:13 | disposition home or self-care (01) ==
LOC: HO.HOSX 09:12
PROVIDERS: Visit Provider Physician Assistant
DX: M22.2X2 Patellofemoral disorders, left knee (principal); M22.2X1 Patellofemoral disorders, right knee
CPT/HCPCS: 20610; 73562; 99212; J0665; J1100; J2003

== ENCOUNTER 2025-04-07 13:25 | Outpatient (AMB) | payer MEDICAID, SELFPAY ==
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
[2025-04-07 13:28] VITALS: BMI 30.1
--- OUTSIDE RECORDS SUMMARY | 2025-04-08 02:25 | XMS_ITS | Clinical Summary ---
Author Organization [facility] Address [address] [place] [address] Phone Care Team Providers Care Retail Merchandiser Technician Name Role Phone Rachel Kirby NP Primary Care Provider [phone] Allergies No known active allergies Encounters Date Type Department Care Team Description 04/04/2025 9:18 PM EST - 04/04/2025 9:42 PM EST Emergency [facility] [address] [place] [address] Skin eschar (Primary Dx) Discharge Disposition: Home or Self Care from Last 3 Months Social History Tobacco Use Types Packs/Day Years [...] on file Sexual Orientation Not on file Obstetrics History Last Filed Vital Signs Vital Sign Reading [...] Mass Index 27.46 04/04/2025 7:10 PM EST Plan of Treatment Health Maintenance Due Date Last Done Comments Breast Cancer Screening 1984 IPV Vaccines (2 of 3 - 4-dos e series) 01/17/1989 12/20/1988 Pneumococcal Vaccine: Pediatrics (0 to 5 Years) and At-Risk Patients (6 to 49 Years) (1 of 2 - PCV) 2003 Cervical Cancer Screening: P ap Smear 2005 HPV Vaccines (1 - 3-dose SCD M series) 2011 Cholesterol Screening (Lipid Panel) 06/15/2023 HIV Screening 06/15/2023 Hepatitis C Screening 06/15/2023 Social Influencers of Health Screening 06/15/2023 Depression Screening 05/22/2024 COVID-19 Vaccine (2 - 2024-2 6 season) 2025 01/27/2021 Influenza Vaccine (#1) 2025 , 05/29/2019 DTaP,Tdap,and Td Vaccines (4 - Td or Tdap) 03/01/2034 03/01/2024, 05/04/2018, 12/20/1988 RSV Immunization Adult Patients (1 - 1-dose 75+ series) 2059 MMR Vaccines Completed 08/17/1994 Hepatitis B Vaccines Completed 02/12/1997, 09/10/1996, 08/09/1996 HIB Vaccines Aged Out No longer eligi ble based on patient's age to complete this topic Hepatitis A Vaccines Aged Out No long er eligible based on patient's age to complete this topic Meningococcal ACWY Vaccine Aged Out N o longer eligible based on patient's age to complete this topic Meningococcal B Vaccine Aged Out No l onger eligible based on patient's age to complete this topic RSV Immunization Patients Under 20 months Aged Out No longer eligible b ased on patient's age to complete this topic Varicella Vaccines Aged Out No longer eligible based on patient's age to complete this topic Insurance [place] Care Teams Retail Merchandiser Technician Relationship Specialty Start Date End Date Rachel Kirby NP [address] [place] [address] PCP - General Internal Medicine 04/04/25
== END 2025-04-07 14:36 | disposition home or self-care (01) ==
PROVIDERS: Visit Provider Physician Assistant
DX: M22.2X1 Patellofemoral disorders, right knee (principal); M22.2X2 Patellofemoral disorders, left knee
CPT/HCPCS: 20610; 99213

== ENCOUNTER → 2025-04-07 13:27 | Outpatient (BNV) | payer MEDICAID, SELFPAY | PROVIDERS: Visit Provider Radiology Diagnostic Ultrasound | DX: M17.0 Bilateral primary osteoarthritis of knee (principal) | CPT/HCPCS: 73562 ==